=== PATIENT | male | born 1985 | race Caucasian/White ===

== ENCOUNTER 2019-09-02 18:53 | Observation (INO) ==
[2019-09-02 20:16] LABS: Hematocrit (blood only) 49.1 % (42-52); Hemoglobin 18.5 g/dL (14.0-18.0); Mean Corpuscular Hemoglobin 31.5 pg (25-34); Mean Corpuscular Hgb Conc 37.7 g/dL (32-36); Mean Corpuscular Volume 83.6 fL (80-100); Mean Platelet Volume 10.8 fL (7.4-10.4); Platelet Count 270 K/uL (130-400); RDW Coefficient of Variation 12.2 % (11.5-14.5); RDW Standard Deviation 36.8 fL (36.4-46.3); Red Blood Count 5.87 M/uL (4.7-6.1)
[2019-09-02] MEDS ORDERED: SODIUM CHLORIDE 0.9% 1000ML 2,000 ML IV ONE (20:26)
[2019-09-02] MEDS ORDERED: ONDANSETRON INJ 2 MG/ML 2 ML VIAL IV STA (20:26)
--- NOTE | 2019-09-02 20:31 | Emergency Department Note ---
History of Present Illness General Chief complaint: Hyperglycemia Stated complaint: HIGH BLOOD SUGAR History of Present Illness This patient is a 34-year-old male who presents ambulatory to the emergency department for evaluation of vomiting for the last 2 days. He reports not being able to keep anything down. He denies any abdominal pain. No changes in bowel movements. No fever. No recent infectious symptoms such as cough or sinus congestion. The patient has a history of type 1 diabetes. He reports taking a long-acting insulin in addition to a sliding scale. He has been taking his medications as prescribed. Home Medications Home Medications Medication Instructions Recorded Confirmed Type levothyroxine 150 mcg tablet 150 mcg PO DAILY #30 tab 03/11/19 09/02/19 Rx blood sugar diagnostic #10 ea 05/05/19 05/05/19 History insulin syringe-needle U-100 0.5 #10 ea 05/05/19 05/05/19 History mL 31 gauge x 5/16" lancets 33 gauge #100 ea 05/05/19 05/05/19 History Novolin N Flexpen 100 unit/mL (3 120 units SQ DAILY 30 Days #45 ml 06/24/19 09/02/19 Rx mL) subcutaneous insulin pen NS insulin glargine [Lantus U-100 20 unit SUBCUT QAM 09/02/19 09/02/19 History Insulin] insulin glargine [Lantus U-100 24 unit SUBCUT HS 09/02/19 09/02/19 History Insulin] Allergies Allergy/AdvReac Type Severity Reaction Status Date / Time amoxicillin Allergy Intermediate Hives Verified 09/03/19 03:35 Past Med/Surg History Medical History Diabetes type 1, uncontrolled (Chronic) Social History Preferred Language: Georgian Communication Ability: Effective Nutrition Professor Required: No Beliefs That Will Affect Care: None Current Living Situation: Spouse Feels Safe at Home: Yes Smoking Status: Never smoker Hx Alcohol Use: No Hx Substance Use: No Review of Systems A total of 10 systems reviewed and were otherwise negative Physical Exam Vital Signs Vital Signs - 24 hr 09/02/19 19:00 09/02/19 20:00 09/02/19 20:40 Temperature 36.8 C Temperature Source Oral Pulse Rate 120 H Pulse Rate [Left Finger] 91 H 81 Pulse Rhythm Regular Pulse Rhythm [Left Finger] Regular Pulse Strength Normal Pulse Strength [Left Finger] Normal Respiratory Rate 18 21 20 Respiratory Effort / Characteristics Non-Labored Spontaneous Non-Labored Spontaneous Respiratory Depth Normal Normal Respiratory Pattern Regular Regular Blood Pressure 109/77 Blood Pressure [Right Arm] 127/93 144/93 H Blood Pressure Mean 87 Blood Pressure Mean [Right Arm] 104 110 Blood Pressure Position Sitting Blood Pressure Position [Right Arm] Lying Pulse Oximetry 97 92 99 Oxygen Delivery Method Room Air Room Air Sepsis Recent Fever Within 48 Hours No Sepsis New/Unexplained Change in Mental Status No Sepsis Action Taken by Nursing No Action Required 09/02/19 22:00 09/02/19 23:32 09/03/19 00:31 Temperature Temperature Source Pulse Rate Pulse Rate [Left Finger] 91 H 109 H 98 H Pulse Rhythm Pulse Rhythm [Left Finger] Regular Regular Regular Pulse Strength Pulse Strength [Left Finger] Normal Normal Normal Respiratory Rate 20 20 18 Respiratory Effort / Characteristics Non-Labored Spontaneous Non-Labored Spontaneous Non-Labored Spontaneous Respiratory Depth Normal Normal Normal Respiratory Pattern Regular Blood Pressure Blood Pressure [Right Arm] 127/80 142/78 H 128/69 Blood Pressure Mean Blood Pressure Mean [Right Arm] 95 99 88 Blood Pressure Position Blood Pressure Position [Right Arm] Lying Lying Lying Pulse Oximetry 98 96 96 Oxygen Delivery Method Room Air Room Air Room Air Sepsis Recent Fever Within 48 Hours Sepsis New/Unexplained Change in Mental Status Sepsis Action Taken by Nursing Constitutional WD/WN, vitals as above Mildly acutely ill in appearance Eyes EOM intact bilaterally ENMT external ear and nose normal, oropharynx normal Oral mucosa slightly dry Neck trachea midline Respiratory normal respiratory effort, lungs clear to auscultation Cardiovascular RRR, no murmur, no edema Gastrointestinal (Abdomen) normal bowel sounds, soft, nontender, no hepatosplenomegaly Musculoskeletal no cyanosis or clubbing, extremities motor strength 5/5 Skin no rashes, warm and dry Neurologic Alert and oriented x3. No focal motor deficits. Psychiatric Acting appropriately Course Course Patient was seen and examined Vital signs including blood pressure were reviewed medications list was verified with patient Labs were obtained, and a saline lock was established An order was placed for continuous cardiac monitoring. The monitor shows a rate of 101 with sinus tachycardia rhythm. Imaging was performed and reviewed upon reevaluation, the pt was feeling better we discussed his results. He was comfortable with the disposition D/w the hospitliast. They will evaluate the pt for likely inpatient management Consultations Consultation #1: Dr. Thornton Administered Medications Sodium Chloride (Nss 1000ml) 1,000 mls @ 125 mls/hr IV .Q8H JULIÁN Stop: 10/03/19 02:28 Last Admin: 09/03/19 12:50 Dose: 125 mls/hr Documented by: [id number] Infusion: 09/03/19 11:39 Dose: 125 mls/hr Documented by: [id number] Admin: 09/03/19 03:39 Dose: 125 mls/hr Documented by: [id number] Insulin Aspart (Novolog Flexpen) 0 units SC ACHS JULIÁN Stop: 10/03/19 03:14 Last Admin: 09/03/19 13:10 Dose: 6 units Documented by: [id number] Cosigned by: [id number] Admin: 09/03/19 09:02 Dose: 11 units Documented by: [id number] Cosigned by: [id number] Admin: 09/03/19 03:36 Dose: 8 units Documented by: [id number] Cosigned by: [id number] Insulin Glargine (Lantus Solostar Pen) 20 units SC QAM JULIÁN Stop: 10/03/19 08:59 Last Admin: 09/03/19 09:02 Dose: 20 units Documented by: [id number] Cosigned by: [id number] Levothyroxine Sodium (Synthroid) 150 mcg PO DAILYBB [facility]–1983 Stop: 10/03/19 06:29 Last Admin: 09/03/19 06:17 Dose: 150 mcg Documented by: [id number] Ondansetron HCl (Zofran) 4 mg IV Q4H PRN PRN Reason: Nausea Stop: 10/03/19 02:28 Last Admin: 09/03/19 08:59 Dose: 4 mg Documented by: [id number] Discontinued Medications Acetaminophen (Tylenol) 1,000 mg PO NOW STA Stop: 09/02/19 23:06 Last Admin: 09/02/19 23:30 Dose: 1,000 mg Documented by: [id number] Acetaminophen (Tylenol) 1,000 mg PO NOW STA Stop: 09/02/19 23:17 Last Admin: 09/02/19 23:31 Dose: Not Given Documented by: [id number] Sodium Chloride (Nss 1000ml) 2,000 mls @ 999 mls/hr IV .Q2H1M ONE Stop: 09/02/19 22:26 Last Infusion: 09/02/19 22:17 Dose: 0 mls/hr Documented by: [id number] Admin: 09/02/19 20:42 Dose: 999 mls/hr Documented by: [id number] Sodium Chloride (Nss) 500 mls @ 125 mls/hr IV .Q4H ONE Stop: 09/03/19 01:54 Last Infusion: 09/03/19 03:56 Dose: 0 mls/hr Documented by: [id number] Admin: 09/02/19 22:17 Dose: 125 mls/hr Documented by: [id number] Insulin Aspart (Novolog Flexpen) 0 units SC TODAY@1000 JULIÁN Stop: 09/03/19 10:01 Last Admin: 09/03/19 10:15 Dose: 4 units Documented by: [id number] Cosigned by: [id number] Insulin Glargine (Lantus Solostar Pen) 24 units SC NOW STA Stop: 09/03/19 03:02 Last Admin: 09/03/19 03:35 Dose: 24 units Documented by: [id number] Cosigned by: [id number] Ondansetron HCl (Zofran) 4 mg IV NOW STA Stop: 09/02/19 20:27 Last Admin: 09/02/19 20:42 Dose: 4 mg Documented by: [id number] Medical Decision Making Medical Records Attestation: I reviewed the patient's medical records. Home Medications Current Medication List: was personally reviewed by me Laboratory Data Attestation: I reviewed the patient's lab results. Result diagrams: 09/03/19 07:21 09/03/19 07:21 Lab Results 09/02/19 09/02/19 09/02/19 Range/Units 19:02 20:01 20:01 WBC 27.30 H (4.8-10.8) K/uL RBC 5.87 (4.7-6.1) M/uL Hgb 18.5 H (14.0-18.0) g/dL Hct 49.1 (42-52) % MCV 83.6 (80-100) fL MCH 31.5 (25-34) pg MCHC 37.7 H (32-36) g/dL RDW Std Deviation 36.8 (36.4-46.3) fL RDW Coeff of Haily 12.2 (11.5-14.5) % Plt Count 270 (130-400) K/uL MPV 10.8 H (7.4-10.4) fL Immature Gran % (Auto) 0.4 % Neut % (Auto) 88.2 % Lymph % (Auto) 4.3 % [place] % (Auto) 7.0 % Eos % (Auto) 0.1 % Baso % (Auto) 0.0 % Immature Gran # (Auto) 0.12 H (0.00-0.02) K/uL Neut # (Auto) 24.06 H (1.4-6.5) K/uL Lymph # (Auto) 1.17 L (1.2-3.4) K/uL [place] # (Auto) 1.92 H (0.11-0.59) K/uL Eos # (Auto) 0.02 (0-0.5) K/uL Baso # (Auto) 0.01 (0-0.2) K/uL ABG pH (7.35-7.45) ABG pCO2 (35-46) mmHg ABG pO2 (80-95) mmHg ABG HCO3 (19-24) mmol/L ABG O2 Saturation (90-95) % ABG Base Excess (-9-1.8) mEq/L Alberto Test (Pos) Barometric Pressure mm/Hg Oxygen Given Sodium 125 L (136-145) mmol/L Potassium 3.6 (3.5-5.1) mmol/L Chloride 83 L (98-107) mmol/L Carbon Dioxide 32 (21-32) mmol/L Anion Gap 9.0 (3-11) BUN 63 H (7-18) mg/dl Creatinine 2.55 H (0.6-1.4) mg/dl Est Cr Clr Drug Dosing 43.1 ml/min Est GFR ( Amer) 36.3 Est GFR (Non-Af Amer) 31.3 BUN/Creatinine Ratio 24.6 H (10-20) Glucose 239 H (70-99) mg/dl POC Glucose 219 H (70-99) mg/dl Calcium 10.6 H (8.5-10.1) mg/dl Total Bilirubin 0.5 (0.2-1) mg/dl AST 33 (15-37) U/L ALT 42 (12-78) U/L Alkaline Phosphatase 143 H (45-117) U/L Total Protein 8.8 H (6.4-8.2) gm/dl Albumin 4.1 (3.4-5.0) gm/dl Globulin 4.7 H (2.5-4.0) gm/dl Albumin/Globulin Ratio 0.9 (0.9-2) Beta-Hydroxybutyric Acd Cancelled TSH (0.300-4.500) uIu/ml Urine Color Urine Appearance (Clear) Urine pH (4.5-7.5) Ur Specific [place] (1.000-1.030) Urine Protein (Negative) Urine Glucose (UA) (Negative) Urine Ketones (Negative) Urine Blood (Negative) Urine Nitrite (Negative) Urine Bilirubin (Negative) Urine Urobilinogen (Negative) Ur Leukocyte Esterase (Negative) Urine WBC (Auto) (0-5) /hpf Urine RBC (Auto) (0-4) /hpf U Hyaline Cast (Auto) (0-5) /lpf U Epithel Cells (Auto) (0-5) /lpf Urine Bacteria (Auto) (Negative) Ur Renal Epithelial Cell 09/02/19 09/02/19 09/02/19 Range/Units 20:01 21:52 22:05 WBC (4.8-10.8) K/uL RBC (4.7-6.1) M/uL Hgb (14.0-18.0) g/dL Hct (42-52) % MCV (80-100) fL MCH (25-34) pg MCHC (32-36) g/dL RDW Std Deviation (36.4-46.3) fL RDW Coeff of Haily (11.5-14.5) % Plt Count (130-400) K/uL MPV (7.4-10.4) fL Immature Gran % (Auto) % Neut % (Auto) % Lymph % (Auto) % [place] % (Auto) % Eos % (Auto) % Baso % (Auto) % Immature Gran # (Auto) (0.00-0.02) K/uL Neut # (Auto) (1.4-6.5) K/uL Lymph # (Auto) (1.2-3.4) K/uL [place] # (Auto) (0.11-0.59) K/uL Eos # (Auto) (0-0.5) K/uL Baso # (Auto) (0-0.2) K/uL ABG pH 7.49 H (7.35-7.45) ABG pCO2 41 (35-46) mmHg ABG pO2 83 (80-95) mmHg ABG HCO3 30 H (19-24) mmol/L ABG O2 Saturation 96.8 H (90-95) % ABG Base Excess 6.3 H (-9-1.8) mEq/L Alberto Test Pos (Pos) Barometric Pressure 728.9 mm/Hg Oxygen Given ROOM AIR Sodium (136-145) mmol/L Potassium (3.5-5.1) mmol/L Chloride (98-107) mmol/L Carbon Dioxide (21-32) mmol/L Anion Gap (3-11) BUN (7-18) mg/dl Creatinine (0.6-1.4) mg/dl Est Cr Clr Drug Dosing ml/min Est GFR ( Amer) Est GFR (Non-Af Amer) BUN/Creatinine Ratio (10-20) Glucose (70-99) mg/dl POC Glucose 231 H (70-99) mg/dl Calcium (8.5-10.1) mg/dl Total Bilirubin (0.2-1) mg/dl AST (15-37) U/L ALT (12-78) U/L Alkaline Phosphatase (45-117) U/L Total Protein (6.4-8.2) gm/dl Albumin (3.4-5.0) gm/dl Globulin (2.5-4.0) gm/dl Albumin/Globulin Ratio (0.9-2) Beta-Hydroxybutyric Acd 10.36 H TSH 33.100 H (0.300-4.500) uIu/ml Urine Color Urine Appearance (Clear) Urine pH (4.5-7.5) Ur Specific [place] (1.000-1.030) Urine Protein (Negative) Urine Glucose (UA) (Negative) Urine Ketones (Negative) Urine Blood (Negative) Urine Nitrite (Negative) Urine Bilirubin (Negative) Urine Urobilinogen (Negative) Ur Leukocyte Esterase (Negative) Urine WBC (Auto) (0-5) /hpf Urine RBC (Auto) (0-4) /hpf U Hyaline Cast (Auto) (0-5) /lpf U Epithel Cells (Auto) (0-5) /lpf Urine Bacteria (Auto) (Negative) Ur Renal Epithelial Cell 09/02/19 Range/Units 23:20 WBC (4.8-10.8) K/uL RBC (4.7-6.1) M/uL Hgb (14.0-18.0) g/dL Hct (42-52) % MCV (80-100) fL MCH (25-34) pg MCHC (32-36) g/dL RDW Std Deviation (36.4-46.3) fL RDW Coeff of Haily (11.5-14.5) % Plt Count (130-400) K/uL MPV (7.4-10.4) fL Immature Gran % (Auto) % Neut % (Auto) % Lymph % (Auto) % [place] % (Auto) % Eos % (Auto) % Baso % (Auto) % Immature Gran # (Auto) (0.00-0.02) K/uL Neut # (Auto) (1.4-6.5) K/uL Lymph # (Auto) (1.2-3.4) K/uL [place] # (Auto) (0.11-0.59) K/uL Eos # (Auto) (0-0.5) K/uL Baso # (Auto) (0-0.2) K/uL ABG pH (7.35-7.45) ABG pCO2 (35-46) mmHg ABG pO2 (80-95) mmHg ABG HCO3 (19-24) mmol/L ABG O2 Saturation (90-95) % ABG Base Excess (-9-1.8) mEq/L Alberto Test (Pos) Barometric Pressure mm/Hg Oxygen Given Sodium (136-145) mmol/L Potassium (3.5-5.1) mmol/L Chloride (98-107) mmol/L Carbon Dioxide (21-32) mmol/L Anion Gap (3-11) BUN (7-18) mg/dl Creatinine (0.6-1.4) mg/dl Est Cr Clr Drug Dosing ml/min Est GFR ( Amer) Est GFR (Non-Af Amer) BUN/Creatinine Ratio (10-20) Glucose (70-99) mg/dl POC Glucose (70-99) mg/dl Calcium (8.5-10.1) mg/dl Total Bilirubin (0.2-1) mg/dl AST (15-37) U/L ALT (12-78) U/L Alkaline Phosphatase (45-117) U/L Total Protein (6.4-8.2) gm/dl Albumin (3.4-5.0) gm/dl Globulin (2.5-4.0) gm/dl Albumin/Globulin Ratio (0.9-2) Beta-Hydroxybutyric Acd TSH (0.300-4.500) uIu/ml Urine Color Yellow Urine Appearance Cloudy A (Clear) Urine pH 5.5 (4.5-7.5) Ur Specific [place] 1.023 (1.000-1.030) Urine Protein 1+ H (Negative) Urine Glucose (UA) 3+ H (Negative) Urine Ketones 1+ H (Negative) Urine Blood Negative (Negative) Urine Nitrite Negative (Negative) Urine Bilirubin Negative (Negative) Urine Urobilinogen Negative (Negative) Ur Leukocyte Esterase Negative (Negative) Urine WBC (Auto) 5-10 H (0-5) /hpf Urine RBC (Auto) 0-4 (0-4) /hpf U Hyaline Cast (Auto) 0 (0-5) /lpf U Epithel Cells (Auto) >30 H (0-5) /lpf Urine Bacteria (Auto) Negative (Negative) Ur Renal Epithelial Cell Not Reportable Imaging Data Attestation: I personally reviewed and interpreted this imaging study as follows: Radiologist's Impression: KUB Nonobstructive bowel gas pattern 2. Mild fecal retention 3. 1 cm calcification projected over the left L4 transverse process versus overlying enteric contents ACT 112: Negative or not required by law. Electronically signed by: Raphael Fajardo M.D. 09/02/2019 8:42 PM Dictated: 09/02/192039 Transcribed: 09/02/192039 Chest x-ray No active disease in the chest. ACT 112: Negative or not required by law. Electronically signed by: Raphael Fajardo M.D. 09/02/2019 8:40 PM Dictated: 09/02/192039 Transcribed: 09/02/192039 CT abdomen and pelvis without contrast Limited exam due to absence of intra-abdominal fat. 2. No gross abnormalities appreciated. 3. Moderate increase in fecal load within the colon consistent with a component of fecal stasis. ACT 112: Negative or not required by law. The above report was generated using voice recognition software. It may contain grammatical, syntax or spelling errors. Electronically signed by: Elías Garza M.D. 09/03/2019 7:28 AM Dictated: 09/03/19725 Transcribed: 09/03/19725 [facility] Narrative Differential diagnosis: DKA, infectious etiology, bowel obstruction, gallbladder pathology, other electrolyte imbalance, among other This patient is a 34-year-old male who presents to the emergency department with ongoing vomiting for the last several days. He is a type I diabetic. The patient is tachycardic. He is afebrile. Abdomen is benign. Labs reveal significant leukocytosis. Blood sugar is elevated in the 200s. Creatinine is elevated. The patient appears to be dehydrated. The etiology of his symptoms is unclear. It does not appear that the patient is in DKA. ABG shows an elevated pH. This is likely due to vomiting. I did not feel comfortable sendi ng the patient home. He was aggressively hydrated with IV fluids in the emergency department. The hospitalist will evaluate the patient for likely inpatient management. Impression & Plan MATTIE (acute kidney injury) Discharge Plan Visit Data *Final* Discharge Date/Time: 09/03/19 02:14 Chief Complaint: Hyperglycemia Stated Complaint: HIGH BLOOD SUGAR ED Provider: Raúl Pappas ED Midlevel Provider: Chely Asencio Discharge Problem: MATTIE (acute kidney injury) Patient Disposition: Admitted As Inpatient Condition: Fair Discharge Instructions Interventions: ED Discharge Assessment Last Done: 09/03/19 02:14
[2019-09-02 20:34] LABS: Albumin Level 4.1 gm/dl (3.4-5.0); BUN Creatinine Ratio 24.6 (10-20); Calcium 10.6 mg/dl (8.5-10.1); Creatinine Clr Calc Pharmacy 43.1 ml/min; Est GFR (African American) 36.3; Est GFR (Non-African American) 31.3; Potassium 3.6 mmol/L (3.5-5.1)
[2019-09-02 20:37] LABS: Albumin Globulin Ratio 0.9 (0.9-2); Bilirubin,Total 0.5 mg/dl (0.2-1); Globulin 4.7 gm/dl (2.5-4.0); Total Protein 8.8 gm/dl (6.4-8.2)
--- NOTE | 2019-09-02 20:42 | XRay Report ---
XR chest 1V portable CLINICAL HISTORY: vomiting COMPARISON STUDY: No previous studies for comparison. FINDINGS: [ The cardiac and mediastinal contours are normal. There is no evidence of focal pulmonary consolidation. There is no evidence of failure. No pleural effusions are visualized. No free intraper itoneal air is visualized. IMPRESSION: No active disease in the chest. ACT 112: Negative or not required by law. Electronically signed by: Rapheal Fajardo M.D. 09/02/2019 8:40 PM
--- NOTE | 2019-09-02 20:43 | XRay Report ---
XR KUB/Abdomen 1 view CLINICAL HISTORY: vomiting COMPARISON STUDY: No previous studies for comparison. FINDINGS: There are no transition zones indicate bowel obstruction. There is moderate colonic stool. There is a density projected over the left L4 transverse process. It is unclear whether this represen ts a calcification or overlying enteric contents. IMPRESSION: 1. Nonobstructive bowel gas pattern 2. Mild fecal retention 3. 1 cm calcification projected over the left L4 transverse process versus overlying enteric contents ACT 112: Negative or not required by law. Electronically signed by: Raphael Fajardo M.D. 09/02/2019 8:42 PM
[2019-09-02 20:59] LABS: Basophils # (auto) 0.01 K/uL (0-0.2); Eosinophils # (auto) 0.02 K/uL (0-0.5); Eosinophils % (auto) 0.1 %; Immature Granulocytes # (auto) 0.12 K/uL (0.00-0.02); Immature Granulocytes % (auto) 0.4 %; Lymphocytes # (auto) 1.17 K/uL (1.2-3.4); Lymphocytes % (auto) 4.3 %; Monocytes # (auto) 1.92 K/uL (0.11-0.59); Neutrophils # (auto) 24.06 K/uL (1.4-6.5); Neutrophils % (auto) 88.2 %
[2019-09-02] MEDS ORDERED: SODIUM CHLORIDE 0.9% 500 ML IV ONE (21:55)
[2019-09-02 22:11] LABS: Base Excess ABG 6.3 mEq/L (-9-1.8); HCO3 ABG 30 mmol/L (19-24); Oxygen Saturation ABG 96.8 % (90-95); PCO2 ABG 41 mmHg (35-46); PO2 ABG 83 mmHg (80-95); pH ABG 7.49 (7.35-7.45)
[2019-09-02 22:12] LABS: Allen Test Pos (Pos)
[2019-09-02 22:19] LABS: Thyroid Stimulating Hormone 33.1 uIu/ml (0.300-4.500)
[2019-09-02] MEDS ORDERED: ACETAMINOPHEN 500 MG TAB PO STA ×2 (23:05→23:16)
[2019-09-02 23:39] LABS: Beta-Hydroxybutyrate 10.36 mg/dl (0.2-2.81)
[2019-09-02 23:43] LABS: Appearance Urine Cloudy (Clear); Bacteria Urine Automated Negative (Negative); Bilirubin Urine Negative (Negative); Blood Urine Negative (Negative); Color Urine Yellow; Epithelial Cell Urine Auto >30 /lpf (0-5); Glucose Urine UA 3+ (Negative); Ketones Urine 1+ (Negative); Leukocyte Esterase Urine Negative (Negative); Nitrite Urine Negative (Negative); Protein Urine 1+ (Negative); Specific Gravity Urine 1.023 (1.000-1.030); Urobilinogen Urine Negative (Negative); pH Urine 5.5 (4.5-7.5)
--- NOTE | 2019-09-02 23:57 | History & Physical Report ---
Date of Service September 02, 2019 Assessment & Plan (1) MATTIE (acute kidney injury): 34 yo M with PMH T1DM uncontrolled, Hypothyroidism and Kaykay's Thyroiditis presents with concerns of N/V and high home BSG's found to have MATTIE. Uncontrolled T1DM w/ Hyperglycemia -follows with [facility]. Last appt 05/28/19 -BSG 239 on admit. Will give PM dose of Lantus 24units -will check BSG's q4h for now -last A1C 15.06 May 2019. Repeat in AM -Cont home Lantus regimen 20 units AM/24 units PM. Placed on SSI -appreciate glycemic management consult MATTIE -Cr 2.55 on admit -likely 2/2 dehydration from emesis -cont IVF NSS at 125 mls/hr -daily BMP N/V -IV Metoclopramide prn for nausea and IV Zofran prn for refractory nausea ordered Hyponatremia -Na 125 on admission -IVF as above -holding off on additional urine studies at present. Can order if no improvement with fluids Hypothyroidism -TSH 33.1 on admit -Free T4 pending -cont levothyroxine 150 mcg for now, adjust as needed based on T4 FEN/GI: DM1 Diet. NSS at 125 DVT Prophylaxis: Low Risk per Admission Calc. SCD's, Ambulation Full Code Dispo: Med Surg History of Present Illness Chief Complaint: n/v, hyperglycemia Primary Care Provider: NO PCP 34 yo M with PMH T1DM uncontrolled, Hypothyroidism and Kaykay's Thyroiditis presents to [facility] with concerns of N/V and high home BSG's. Onset 2 days ago. No previous such occurrence like this ever before. Notes that anytime he sipped or ingested food he would have emesis. Has not really ingested anything past 2 days. Home BSG's initially >600, then got down to 500s, eventually into 300's over past 2 days. Today, pt states he took 35/30/30 units of lispro today [employer] (times unknown) for his high BSG. Pt normally takes sliding scale, Lantus 20 units qAM, 24 units qPM, carb ratio 1:10. He has been taking his medications as prescribed otherwise. Associated weakness and decreased appetite, but pt otherwise denies any fevers, chills, other infectious sxs, abd pain, sick contacts, or recent travel. Pt with no other acute concerns or complaints. U/A: 3+Glu, 1+ Ketones, 5-10 WBCs CXR: No active disease in the chest. KUB: Nonobstructive bowel gas pattern. Mild fecal retention. 1 cm calcification projected over the left L4 transverse process versus overlying enteric contents CT Abd/Pelvis ([facility]): No clear inflammation about the cecal tip. No GI or urinary tract obstruction. Small sliding type hiatal hernia. Mild urinary bladder wall thickening for the degree of distention. Pertinent Labs: WBC 27.3 w/L shift, Na 125, BUN 63, Cr 2.55, Glu 239, Beta Hydroxybutyric Acid 10.36, TSH 33.1 ER Course: PO Tylenol 2g, IV Zofran, NSS Allergies Allergy/AdvReac Type Severity Reaction Status Date / Time amoxicillin Allergy Intermediate Hives Verified 09/03/19 03:35 Home Medications Home Medications Medication Instructions Recorded Confirmed Type levothyroxine 150 mcg tablet 150 mcg PO DAILY #30 tab 03/11/19 09/02/19 Rx blood sugar diagnostic #10 ea 05/05/19 05/05/19 History insulin syringe-needle U-100 0.5 #10 ea 05/05/19 05/05/19 History mL 31 gauge x 5/16" lancets 33 gauge #100 ea 05/05/19 05/05/19 History Novolin N Flexpen 100 unit/mL (3 120 units SQ DAILY 30 Days #45 ml 06/24/19 09/02/19 Rx mL) subcutaneous insulin pen NS insulin glargine [Lantus U-100 20 unit SUBCUT QAM 09/02/19 09/02/19 History Insulin] insulin glargine [Lantus U-100 24 unit SUBCUT HS 09/02/19 09/02/19 History Insulin] Past Med/Surg History Medical History Diabetes type 1, uncontrolled (Chronic) Social History Preferred Language: Nepalese Communication Ability: Effective Superintendent Storage Area Required: No Beliefs That Will Affect Care: None Current Living Situation: Spouse Feels Safe at Home: Yes Smoking Status: Never smoker Hx Alcohol Use: No Hx Substance Use: No Review of Systems Review of Systems: All systems reviewed & are unremarkable except as noted in HPI & below Physical Exam Constitutional: WD/WN, vitals as above + ill appearing Eyes: PERRL, conjunctivae normal, anicteric sclerae ENMT: Mouth: + oral mucosal abnormality (dry MM) Respiratory: normal respiratory effort, lungs clear to auscultation Cardiovascular: RRR, no murmur, no edema Gastrointestinal (Abdomen): normal bowel sounds, soft, nontender, no hepatosplenomegaly Skin: no rashes, warm and dry Psychiatric: A+Ox3, euthymic affect Results & Data Results & Data ([facility]) Vital Signs (Past 12 Hours) Vital Signs Temp Pulse Pulse Resp BP BP Pulse Ox 09/02/19 23:32 109 H 20 142/78 H 96 09/02/19 22:00 91 H 20 127/80 98 09/02/19 20:40 81 20 144/93 H 99 09/02/19 20:00 91 H 21 127/93 92 09/02/19 19:00 36.8 C 120 H 18 109/77 97 Laboratory Results Laboratory Results - last 24 hr 09/02/19 09/02/19 09/02/19 19:02 20:01 20:01 WBC 27.30 H RBC 5.87 Hgb 18.5 H Hct 49.1 MCV 83.6 MCH 31.5 MCHC 37.7 H RDW Std Deviation 36.8 RDW Coeff of Haily 12.2 Plt Count 270 MPV 10.8 H Immature Gran % (Auto) 0.4 Neut % (Auto) 88.2 Lymph % (Auto) 4.3 [place] % (Auto) 7.0 Eos % (Auto) 0.1 Baso % (Auto) 0.0 Immature Gran # (Auto) 0.12 H Neut # (Auto) 24.06 H Lymph # (Auto) 1.17 L [place] # (Auto) 1.92 H Eos # (Auto) 0.02 Baso # (Auto) 0.01 ABG pH ABG pCO2 ABG pO2 ABG HCO3 ABG O2 Saturation ABG Base Excess Alberto Test Barometric Pressure Oxygen Given Sodium 125 L Potassium 3.6 Chloride 83 L Carbon Dioxide 32 Anion Gap 9.0 BUN 63 H Creatinine 2.55 H Est Cr Clr Drug Dosing 43.1 Est GFR ( Amer) 36.3 Est GFR (Non-Af Amer) 31.3 BUN/Creatinine Ratio 24.6 H Glucose 239 H POC Glucose 219 H Calcium 10.6 H Total Bilirubin 0.5 AST 33 ALT 42 Alkaline Phosphatase 143 H Total Protein 8.8 H Albumin 4.1 Globulin 4.7 H Albumin/Globulin Ratio 0.9 Beta-Hydroxybutyric Acd Cancelled TSH Urine Color Urine Appearance Urine pH Ur Specific [place] Urine Protein Urine Glucose (UA) Urine Ketones Urine Blood Urine Nitrite Urine Bilirubin Urine Urobilinogen Ur Leukocyte Esterase Urine WBC (Auto) Urine RBC (Auto) U Hyaline Cast (Auto) U Epithel Cells (Auto) Urine Bacteria (Auto) Ur Renal Epithelial Cell 09/02/19 09/02/19 09/02/19 20:01 21:52 22:05 WBC RBC Hgb Hct MCV MCH MCHC RDW Std Deviation RDW Coeff of Haily Plt Count MPV Immature Gran % (Auto) Neut % (Auto) Lymph % (Auto) [place] % (Auto) Eos % (Auto) Baso % (Auto) Immature Gran # (Auto) Neut # (Auto) Lymph # (Auto) [place] # (Auto) Eos # (Auto) Baso # (Auto) ABG pH 7.49 H ABG pCO2 41 ABG pO2 83 ABG HCO3 30 H ABG O2 Saturation 96.8 H ABG Base Excess 6.3 H Alberto Test Pos Barometric Pressure 728.9 Oxygen Given ROOM AIR Sodium Potassium Chloride Carbon Dioxide Anion Gap BUN Creatinine Est Cr Clr Drug Dosing Est GFR ( Amer) Est GFR (Non-Af Amer) BUN/Creatinine Ratio Glucose POC Glucose 231 H Calcium Total Bilirubin AST ALT Alkaline Phosphatase Total Protein Albumin Globulin Albumin/Globulin Ratio Beta-Hydroxybutyric Acd 10.36 H TSH 33.100 H Urine Color Urine Appearance Urine pH Ur Specific [place] Urine Protein Urine Glucose (UA) Urine Ketones Urine Blood Urine Nitrite Urine Bilirubin Urine Urobilinogen Ur Leukocyte Esterase Urine WBC (Auto) Urine RBC (Auto) U Hyaline Cast (Auto) U Epithel Cells (Auto) Urine Bacteria (Auto) Ur Renal Epithelial Cell 09/02/19 23:20 WBC RBC Hgb Hct MCV MCH MCHC RDW Std Deviation RDW Coeff of Haily Plt Count MPV Immature Gran % (Auto) Neut % (Auto) Lymph % (Auto) [place] % (Auto) Eos % (Auto) Baso % (Auto) Immature Gran # (Auto) Neut # (Auto) Lymph # (Auto) [place] # (Auto) Eos # (Auto) Baso # (Auto) ABG pH ABG pCO2 ABG pO2 ABG HCO3 ABG O2 Saturation ABG Base Excess Alberto Test Barometric Pressure Oxygen Given Sodium Potassium Chloride Carbon Dioxide Anion Gap BUN Creatinine Est Cr Clr Drug Dosing Est GFR ( Amer) Est GFR (Non-Af Amer) BUN/Creatinine Ratio Glucose POC Glucose Calcium Total Bilirubin AST ALT Alkaline Phosphatase Total Protein Albumin Globulin Albumin/Globulin Ratio Beta-Hydroxybutyric Acd TSH Urine Color Yellow Urine Appearance Cloudy A Urine pH 5.5 Ur Specific [place] 1.023 Urine Protein 1+ H Urine Glucose (UA) 3+ H Urine Ketones 1+ H Urine Blood Negative Urine Nitrite Negative Urine Bilirubin Negative Urine Urobilinogen Negative Ur Leukocyte Esterase Negative Urine WBC (Auto) 5-10 H Urine RBC (Auto) 0-4 U Hyaline Cast (Auto) 0 U Epithel Cells (Auto) >30 H Urine Bacteria (Auto) Negative Ur Renal Epithelial Cell Not Reportable Medications Administered Current Inpatient Medications Sodium Chloride (Nss) 500 mls @ 125 mls/hr IV .Q4H ONE Stop: 09/03/19 01:54 Last Admin: 09/02/19 22:17 Dose: 125 mls/hr Documented by: Code Status & VTE Plan Code Status FULL Supervising Physician Co-Signing Physician Notes Patient seen and examined, chart reviewed, case discussed with Dr. Dawson and I agree with his assessment and plan as documented above. Briefly, patient is a 34yo C male with history of poorly controlled DM-1, last WiuH3U=67.7 in 04/2019, Hypothyroidism presenting with persistent nausea, po intolerance and hyperglycemia. He reports his BS was reading "High" earlier today - suspected to be >600. He administered 35u of Novolog, repeat BSG with in the 300's and he administered 30u of Novolog, repeat BSG was slighly better so he gave himself another 30 units (95u Novolog total). BSG on hysvvhs=157. Still with nausea. Denies fevers/chills/cough/SOB/CP. No additional complaints On exam he appear ill but in NAD Skin - intact, no rash HEENT - NC/AT, PERRL, EOMI, DRY MM, neck supple Heart - +S1/S2, regular, no m/r/g Lungs - CTA Abd - +BS, soft, NT/ND Ext - No edema Neuro - nonfocal Labs and images reviewed - elevated BHB but no anion gap, no acidemia. Xn=[id number], MATTIE with BUN=63 and Cr=2.55, TSH=33 No acute intraabdominal pathology Assessment/Plan - 34yo C male with TypeI DM presenting with hyperglycemia, n/v and MATTIE -Admit to medical floor -Continue IVF resuscitation, patient appears quite dry on physical exam as well as laboratory. Follow BUN/Cr and electrolytes -Resume home Lantus, ISS -Remainder of plan as above Resident Activity Tracking Resident Involvement: Resident Care Provided Care Provided: Adult Hospital Medicine
[2019-09-03 00:04] LABS: Cast Urine Automated 0 /lpf (0-5); RBC Urine Automated 0-4 /hpf (0-4)
--- NOTE | 2019-09-03 02:27 | Billing Data ---
Date of Service September 03, 2019 Coding Level of Care Code 52723 Initial Inpt Care Lvl 2
[2019-09-03] MEDS ORDERED: ALUMINUM/MAGNESIUM SUSP 30 ML UDC PO PRN (02:29)
[2019-09-03] MEDS ORDERED: ACETAMINOPHEN 325 MG TAB PO PRN (02:29)
[2019-09-03] MEDS ORDERED: METOCLOPRAMIDE HCL INJ 5 MG/ML 2 ML VIAL IV PRN (02:29)
[2019-09-03] MEDS ORDERED: DEXTROSE 50% 50 ML SYRINGE IV PRN (02:29)
[2019-09-03] MEDS ORDERED: CARBOHYDRATES FOR HYPOGLYCEMIA PO PRN (02:29)
[2019-09-03] MEDS ORDERED: GLUCOSE 10 TABS/TUBE PO PRN (02:29)
[2019-09-03] MEDS ORDERED: GLUCOSE 40% GEL 15 GM TUBE PO PRN (02:29)
[2019-09-03] MEDS ORDERED: GLUCAGON FOR INJ 1 MG VIAL SQ PRN (02:29)
[2019-09-03] MEDS ORDERED: INSULIN GLARGINE SOLOSTAR 100 UNITS/ML 3 ML PEN SC STA (03:01)
[2019-09-03] MEDS ORDERED: PHARMACY GLYCEMIC MGMT CONSULT PRN (03:06)
[2019-09-03] MEDS: INSULIN ASPART 100 UNITS/ML 3 ML PEN SC SCH ×5 (03:36→20:45)
[2019-09-03] MEDS: SODIUM CHLORIDE 0.9% 1000ML 1,000 ML IV SCH ×3 (03:39→21:29)
[2019-09-03] MEDS: LEVOTHYROXINE SODIUM 150 MCG TABLET PO SCH (06:17)
--- NOTE | 2019-09-03 07:29 | CT Scan Report ---
CT abd pelvis wo con CT DOSE: 295.11 mGy.cm HISTORY: Pain. Nausea. vomiting high WBC TECHNIQUE: Multiaxial CT images of the abdomen and pelvis were performed without contrast. A dose lo wering technique was utilized adhering to the principles of ALARA. COMPARISON STUDY: None. FINDINGS: Compromised exam due to the absence of intra-abdominal fat. Liver spleen and pancreas are g rossly unremarkable. Kidneys are negative for hydronephrosis or nephrocalcinosis. Moderate increase in fecal load throughout the colon. No evidence for a true fecal impaction. Bladder is midline. No free fluid within the abdomen or pelvis. Poor visibility of the appendix although no significant pericecal infiltrative change is present. IMPRESSION: 1. Limited exam due to absence of intra-abdominal fat. 2. No gross abnormalities appreciated. 3. Moderate increase in fecal load within the colon consistent with a component of fecal stasis. ACT 112: Negative or not required by law. The above report was generated using voice recognition software. It may contain grammatical, syntax or spelling errors. Electronically signed by: Elías Garza M.D. 09/03/2019 7:28 AM
[2019-09-03 08:11] LABS: Estimated Average Glucose 372 mg/dl; Hemoglobin A1C 14.6 % (4.5-5.6)
[2019-09-03 08:51] LABS: BUN Creatinine Ratio 27.3 (10-20); Calcium 9.1 mg/dl (8.5-10.1); Creatinine Clr Calc Pharmacy 70.5 ml/min; Est GFR (African American) 68.4; Potassium 4.2 mmol/L (3.5-5.1); T4 Free Thyroxine 0.96 ng/dl (0.8-1.6)
[2019-09-03] MEDS: ONDANSETRON INJ 2 MG/ML 2 ML VIAL IV PRN ×2 (08:59→15:57)
[2019-09-03] MEDS: INSULIN GLARGINE SOLOSTAR 100 UNITS/ML 3 ML PEN SC SCH (09:02)
[2019-09-03 09:24] LABS: Basophils # (auto) 0.01 K/uL (0-0.2); Eosinophils # (auto) 0.02 K/uL (0-0.5); Eosinophils % (auto) 0.1 %; Hematocrit (blood only) 42.8 % (42-52); Hemoglobin 15.6 g/dL (14.0-18.0); Immature Granulocytes # (auto) 0.08 K/uL (0.00-0.02); Immature Granulocytes % (auto) 0.4 %; Lymphocytes % (auto) 5.5 %; Mean Corpuscular Hemoglobin 31.4 pg (25-34); Mean Corpuscular Hgb Conc 36.4 g/dL (32-36); Mean Corpuscular Volume 86.1 fL (80-100); Mean Platelet Volume 11.2 fL (7.4-10.4); Monocytes % (auto) 6.8 %; Neutrophils # (auto) 19.19 K/uL (1.4-6.5); Neutrophils % (auto) 87.2 %; Platelet Count 241 K/uL (130-400); RDW Coefficient of Variation 12.6 % (11.5-14.5); RDW Standard Deviation 39.1 fL (36.4-46.3); Red Blood Count 4.97 M/uL (4.7-6.1)
[2019-09-03] MEDS ORDERED: INSULIN ASPART 100 UNITS/ML 3 ML PEN SC SCH (10:00)
--- NOTE | 2019-09-03 12:49 | Pharmacy Report ---
Glycemic Control Consultation - Date of Service September 03, 2019 - Scope Scope: Glycemic Pharmacist consulted for glycemic control and to write orders per [facility] inpatient glycemic control protocol. - Objective Weight: 73 kg Accuchecks BSG (last 24hrs): 09/02/19 09/02/19 09/02/19 19:02 20:01 22:05 Glucose 239 H POC Glucose 219 H 231 H 09/03/19 09/03/19 09/03/19 03:18 07:21 08:15 Glucose 289 H POC Glucose 374 H* 336 H* 09/03/19 09/03/19 09/03/19 08:15 10:01 11:58 Glucose POC Glucose 331 H* 267 H 143 H Laboratory Data (last 24hrs): 09/02/19 09/02/19 09/03/19 20:01 20:01 07:21 Potassium 3.6 4.2 D Carbon Dioxide 32 29 Anion Gap 9.0 8.0 Creatinine 2.55 H 1.51 H D Est Cr Clr Drug Dosing 43.1 70.5 Beta-Hydroxybutyric Acd Cancelled 10.36 H HbA1c: Hemoglobin A1c 14.6 % (4.5-5.6) H 09/03/19 07:21 - Recent Pertinent Medications Outpatient Anti-diabetic Regimen: * Lantus 20 units SQ AM + Lantus 24 units SQ PM * ?NPH? * Humalog per scale * Follows with [facility] * A1c = 14.6 % 09/03/19 - Assessment & Plan Assessment & Plan: ASSESSMENT: * 34yo T1DM with severe hyperglycemia - no hyperglycemic crisis at this time. Will try to treat with SQ insulin - Q2hrs rapid acting NovoLog until BSG below 250mg/dl then switch back to ACHS. * Pt did not receive his PM dose of Lantus last evening on admission - given at 0300 this AM so that dose was not missed. Unsure of when his last dose of insulin was prior to that. Questionable compliance based on elevated A1c * Likely reported outpatient basal insulin doses are TOTAL daily dose since he does not have any prandial/rapid acting insulin on med rec. Will need to adjust dosing for inpatient use since prandial insulin is ordered per CF/CR. PLAN FOR INPATIENT GLYCEMIC CONTROL: * BSGs coming down nicely with basal on board and Q2hrs NovoLog: BSGs 374 --> 336 --> 267 --> 143 mg/dl Will change back to ACHS * Basal insulin * Pt received outpatient dosing of Lantus 24 units HS (at 0300 on 09/03/19) and 20 units on 09/03/19 @ 0900. Will empirically decrease dosing since this is likely total daily dose and not true basal needs. * for tonight, will dose Lantus based on BSG and then re-eval tomorrow: * BSG below 110 --> 0 units * BSG 110-140 --> 7 units * BSG 141-180 --> 14 units * BSG > 180 --> 18 units * Bolus insulin: per weight based dosing since outpatient scale is unknown. * NovoLog per scale ACHS or Q6hrs while NPO * Goal Range: Low 110 mg/dL - High 140 mg/dL * Correction Factor: 20 mg/dL/unit * Nutritional / Prandial insulin per carb ratio of 1 unit per 7 grams CHO consumed * Please note that the plan above was derived based on current level of insulin resistance and hospital stress. These recommendations are appropriate for inpatient admission only. Plan of care upon discharge will need to be reassessed to avoid potential outpatient hypo/hyperglycemia. Thank you.
--- NOTE | 2019-09-03 14:51 | Hospitalist Progress Note ---
Date of Service September 03, 2019 Assessment & Plan (1) Diabetes type 1, uncontrolled: 34 yo M with PMH T1DM uncontrolled, Hypothyroidism and Kaykay's Thyroiditis; who presented to the hospital with concerns of N/V and high home BSG's found to have MATTIE and elevated glucose levels >300 Uncontrolled T1DM w/ Hyperglycemia with ketosis - likely acidosis. - follows with [facility]. Last appt 05/28/19 - had [address] in April that was set to alert him if he fell outside of goal range 170-220 - pH 7.49 on admission, with presence of ketones, but Bicarb wnl (compensated mixed acid-base disturbance - bicarb likely elevated secondary to vomiting). - continue to check BSG's q4h - last A1C 15.06 May 2019, repeat this admission 14.6 - Cont home Lantus regimen 20 units AM/24 units PM - Glycemic management consult: gave 2Units SQ every 2 hours this AM - will need renewal of Novolog on discharge as with recent use for attempted home control of BSG, patient is almost out - need to continue to control of N/V for maintained normal volume status MATTIE: - Cr 2.55 on admit; improved this AM to 1.51 - likely 2/2 dehydration from emesis - continue IV NSS at 125 mls/hr Nausea/Vomiting: - continue IV Metoclopramide or IV Zofran PRN nausea/vomiting Hyponatremia - Na 125 on admission, hyperglycemia correction to 127 - this AM improved to 131, with correction up to 134 - continue IV fluids Hypothyroidism - TSH 33.1 on admit - cont levothyroxine 150 mcg for now, adjust as needed based on T4 Diet: T1DM, with NSS at 125mL/hr DVT Prophylaxis: SCD's, and encouraged ambulation Code: Full Code (2) MATTIE (acute kidney injury): Admission and Anticipated Discharge Date Admission Date: September 03, 2019 Supervising Physician Co-Signing Physician Notes Resident Physician Supervision Note: I independently interviewed and examined the patient and verified the obrien history and physical, reviewed labs and image studies, discussed the case with the resident Dr. Krishnan and agree with the findings and care plan. Subjective Patient was doing well this morning prior to attempting to eat his breakfast, following having a few bites he re-developed his nausea and vomiting; following receiving another dose of Zofran he had improvement in his symptoms, and subsequently later in the day tolerated small amounts of oral intake without of symptoms. Review of Systems Review of Systems: All systems reviewed & are unremarkable except as noted in Subjective Physical Exam Constitutional: WD/WN, vitals as above Eyes: PERRL, conjunctivae normal, anicteric sclerae ENMT: Nose: + dry nasal mucous membranes Respiratory: normal respiratory effort, lungs clear to auscultation Au scultation: no crackles, no rales and no wheezes Cardiovascular: Rate/Rhythm: regular rate and regular rhythm Heart Sounds: normal S1 and normal S2; no gallop, no murmur and no cardiac rub Gastrointestinal (Abdomen): Inspection/Auscultation: abdomen normal to inspection and normal bowel sounds; abdomen not distended Percussion/Palpation: + abdomen tender and abdomen soft Musculoskeletal: no cyanosis or clubbing, extremities motor strength 5/5 Skin: no rashes, warm and dry Psychiatric: A+Ox3, euthymic affect Lymphatic: no cervical lymphadenopathy Results & Data Results & Data ([facility]) Vital Signs (Past 12 Hours) Vital Signs Temp Pulse Resp BP Pulse Ox 09/03/19 07:37 36.7 C 88 16 128/67 96 09/03/19 04:57 36.9 C 87 16 119/72 95 Laboratory Results 09/03/19 09/03/19 09/03/19 Range/Units 11:58 10:01 08:15 WBC (4.8-10.8) K/uL RBC (4.7-6.1) M/uL Hgb (14.0-18.0) g/dL Hct (42-52) % MCV (80-100) fL MCH (25-34) pg MCHC (32-36) g/dL RDW Std Deviation (36.4-46.3) fL RDW Coeff of Haily (11.5-14.5) % Plt Count (130-400) K/uL MPV (7.4-10.4) fL Immature Gran % (Auto) % Neut % (Auto) % Lymph % (Auto) % [place] % (Auto) % Eos % (Auto) % Baso % (Auto) % Immature Gran # (Auto) (0.00-0.02) K/uL Neut # (Auto) (1.4-6.5) K/uL Lymph # (Auto) (1.2-3.4) K/uL [place] # (Auto) (0.11-0.59) K/uL Eos # (Auto) (0-0.5) K/uL Baso # (Auto) (0-0.2) K/uL ABG pH (7.35-7.45) ABG pCO2 (35-46) mmHg ABG pO2 (80-95) mmHg ABG HCO3 (19-24) mmol/L ABG O2 Saturation (90-95) % ABG Base Excess (-9-1.8) mEq/L Alberto Test (Pos) Barometric Pressure mm/Hg Oxygen Given Sodium (136-145) mmol/L Potassium (3.5-5.1) mmol/L Chloride (98-107) mmol/L Carbon Dioxide (21-32) mmol/L Anion Gap (3-11) BUN (7-18) mg/dl Creatinine (0.6-1.4) mg/dl Est Cr Clr Drug Dosing ml/min Est GFR ( Amer) Est GFR (Non-Af Amer) BUN/Creatinine Ratio (10-20) Glucose (70-99) mg/dl POC Glucose 143 H 267 H 331 H* (70-99) mg/dl Estimat Average Glucose mg/dl Hemoglobin A1c (4.5-5.6) % Calcium (8.5-10.1) mg/dl Total Bilirubin (0.2-1) mg/dl AST (15-37) U/L ALT (12-78) U/L Alkaline Phosphatase (45-117) U/L Total Protein (6.4-8.2) gm/dl Albumin (3.4-5.0) gm/dl Globulin (2.5-4.0) gm/dl Albumin/Globulin Ratio (0.9-2) Beta-Hydroxybutyric Acd TSH (0.300-4.500) uIu/ml Free T4 (0.8-1.6) ng/dl Urine Color Urine Appearance (Clear) Urine pH (4.5-7.5) Ur Specific Browning (1.000-1.030) Urine Protein (Negative) Urine Glucose (UA) (Negative) Urine Ketones (Negative) Urine Blood (Negative) Urine Nitrite (Negative) Urine Bilirubin (Negative) Urine Urobilinogen (Negative) Ur Leukocyte Esterase (Negative) Urine WBC (Auto) (0-5) /hpf Urine RBC (Auto) (0-4) /hpf U Hyaline Cast (Auto) (0-5) /lpf U Epithel Cells (Auto) (0-5) /lpf Urine Bacteria (Auto) (Negative) Ur Renal Epithelial Cell 09/03/19 09/03/19 09/03/19 Range/Units 08:15 07:21 07:21 WBC 22.00 H (4.8-10.8) K/uL RBC 4.97 (4.7-6.1) M/uL Hgb 15.6 (14.0-18.0) g/dL Hct 42.8 (42-52) % MCV 86.1 (80-100) fL MCH 31.4 (25-34) pg MCHC 36.4 H (32-36) g/dL RDW Std Deviation 39.1 (36.4-46.3) fL RDW Coeff of Haily 12.6 (11.5-14.5) % Plt Count 241 (130-400) K/uL MPV 11.2 H (7.4-10.4) fL Immature Gran % (Auto) 0.4 % Neut % (Auto) 87.2 % Lymph % (Auto) 5.5 % Lajas % (Auto) 6.8 % Eos % (Auto) 0.1 % Baso % (Auto) 0.0 % Immature Gran # (Auto) 0.08 H (0.00-0.02) K/uL Neut # (Auto) 19.19 H (1.4-6.5) K/uL Lymph # (Auto) 1.20 (1.2-3.4) K/uL [place] # (Auto) 1.50 H (0.11-0.59) K/uL Eos # (Auto) 0.02 (0-0.5) K/uL Baso # (Auto) 0.01 (0-0.2) K/uL ABG pH (7.35-7.45) ABG pCO2 (35-46) mmHg ABG pO2 (80-95) mmHg ABG HCO3 (19-24) mmol/L ABG O2 Saturation (90-95) % ABG Base Excess (-9-1.8) mEq/L Alberto Test (Pos) Barometric Pressure mm/Hg Oxygen Given Sodium (136-145) mmol/L Potassium (3.5-5.1) mmol/L Chloride (98-107) mmol/L Carbon Dioxide (21-32) mmol/L Anion Gap (3-11) BUN (7-18) mg/dl Creatinine (0.6-1.4) mg/dl Est Cr Clr Drug Dosing ml/min Est GFR ( Amer) Est GFR (Non-Af Amer) BUN/Creatinine Ratio (10-20) Glucose (70-99) mg/dl POC Glucose 336 H* (70-99) mg/dl Estimat Average Glucose 372 mg/dl Hemoglobin A1c 14.6 H (4.5-5.6) % Calcium (8.5-10.1) mg/dl Total Bilirubin (0.2-1) mg/dl AST (15-37) U/L ALT (12-78) U/L Alkaline Phosphatase (45-117) U/L Total Protein (6.4-8.2) gm/dl Albumin (3.4-5.0) gm/dl Globulin (2.5-4.0) gm/dl Albumin/Globulin Ratio (0.9-2) Beta-Hydroxybutyric Acd TSH (0.300-4.500) uIu/ml Free T4 (0.8-1.6) ng/dl Urine Color Urine Appearance (Clear) Urine pH (4.5-7.5) Ur Specific Browning (1.000-1.030) Urine Protein (Negative) Urine Glucose (UA) (Negative) Urine Ketones (Negative) Urine Blood (Negative) Urine Nitrite (Negative) Urine Bilirubin (Negative) Urine Urobilinogen (Negative) Ur Leukocyte Esterase (Negative) Urine WBC (Auto) (0-5) /hpf Urine RBC (Auto) (0-4) /hpf U Hyaline Cast (Auto) (0-5) /lpf U Epithel Cells (Auto) (0-5) /lpf Urine Bacteria (Auto) (Negative) Ur Renal Epithelial Cell 09/03/19 09/03/19 09/02/19 Range/Units 07:21 03:18 23:20 WBC (4.8-10.8) K/uL RBC (4.7-6.1) M/uL Hgb (14.0-18.0) g/dL Hct (42-52) % MCV (80-100) fL MCH (25-34) pg MCHC (32-36) g/dL RDW Std Deviation (36.4-46.3) fL RDW Coeff of Haily (11.5-14.5) % Plt Count (130-400) K/uL MPV (7.4-10.4) fL Immature Gran % (Auto) % Neut % (Auto) % Lymph % (Auto) % [place] % (Auto) % Eos % (Auto) % Baso % (Auto) % Immature Gran # (Auto) (0.00-0.02) K/uL Neut # (Auto) (1.4-6.5) K/uL Lymph # (Auto) (1.2-3.4) K/uL [place] # (Auto) (0.11-0.59) K/uL Eos # (Auto) (0-0.5) K/uL Baso # (Auto) (0-0.2) K/uL ABG pH (7.35-7.45) ABG pCO2 (35-46) mmHg ABG pO2 (80-95) mmHg ABG HCO3 (19-24) mmol/L ABG O2 Saturation (90-95) % ABG Base Excess (-9-1.8) mEq/L Alberto Test (Pos) Barometric Pressure mm/Hg Oxygen Given Sodium 131 L (136-145) mmol/L Potassium 4.2 D (3.5-5.1) mmol/L Chloride 94 L (98-107) mmol/L Carbon Dioxide 29 (21-32) mmol/L Anion Gap 8.0 (3-11) BUN 41 H (7-18) mg/dl Creatinine 1.51 H D (0.6-1.4) mg/dl Est Cr Clr Drug Dosing 70.5 ml/min Est GFR ( Amer) 68.4 Est GFR (Non-Af Amer) 59.0 BUN/Creatinine Ratio 27.3 H (10-20) Glucose 289 H (70-99) mg/dl POC Glucose 374 H* (70-99) mg/dl Estimat Average Glucose mg/dl Hemoglobin A1c (4.5-5.6) % Calcium 9.1 (8.5-10.1) mg/dl Total Bilirubin (0.2-1) mg/dl AST (15-37) U/L ALT (12-78) U/L Alkaline Phosphatase (45-117) U/L Total Protein (6.4-8.2) gm/dl Albumin (3.4-5.0) gm/dl Globulin (2.5-4.0) gm/dl Albumin/Globulin Ratio (0.9-2) Beta-Hydroxybutyric Acd TSH (0.300-4.500) uIu/ml Free T4 0.96 (0.8-1.6) ng/dl Urine Color Yellow Urine Appearance Cloudy A (Clear) Urine pH 5.5 (4.5-7.5) Ur Specific Browning 1.023 (1.000-1.030) Urine Protein 1+ H (Negative) Urine Glucose (UA) 3+ H (Negative) Urine Ketones 1+ H (Negative) Urine Blood Negative (Negative) Urine Nitrite Negative (Negative) Urine Bilirubin Negative (Negative) Urine Urobilinogen Negative (Negative) Ur Leukocyte Esterase Negative (Negative) Urine WBC (Auto) 5-10 H (0-5) /hpf Urine RBC (Auto) 0-4 (0-4) /hpf U Hyaline Cast (Auto) 0 (0-5) /lpf U Epithel Cells (Auto) >30 H (0-5) /lpf Urine Bacteria (Auto) Negative (Negative) Ur Renal Epithelial Cell Not Reportable 09/02/19 09/02/19 09/02/19 Range/Units 22:05 21:52 20:01 WBC (4.8-10.8) K/uL RBC (4.7-6.1) M/uL Hgb (14.0-18.0) g/dL Hct (42-52) % MCV (80-100) fL MCH (25-34) pg MCHC (32-36) g/dL RDW Std Deviation (36.4-46.3) fL RDW Coeff of Haily (11.5-14.5) % Plt Count (130-400) K/uL MPV (7.4-10.4) fL Immature Gran % (Auto) % Neut % (Auto) % Lymph % (Auto) % [place] % (Auto) % Eos % (Auto) % Baso % (Auto) % Immature Gran # (Auto) (0.00-0.02) K/uL Neut # (Auto) (1.4-6.5) K/uL Lymph # (Auto) (1.2-3.4) K/uL [place] # (Auto) (0.11-0.59) K/uL Eos # (Auto) (0-0.5) K/uL Baso # (Auto) (0-0.2) K/uL ABG pH 7.49 H (7.35-7.45) ABG pCO2 41 (35-46) mmHg ABG pO2 83 (80-95) mmHg ABG HCO3 30 H (19-24) mmol/L ABG O2 Saturation 96.8 H (90-95) % ABG Base Excess 6.3 H (-9-1.8) mEq/L Alberto Test Pos (Pos) Barometric Pressure 728.9 mm/Hg Oxygen Given ROOM AIR Sodium (136-145) mmol/L Potassium (3.5-5.1) mmol/L Chloride (98-107) mmol/L Carbon Dioxide (21-32) mmol/L Anion Gap (3-11) BUN (7-18) mg/dl Creatinine (0.6-1.4) mg/dl Est Cr Clr Drug Dosing ml/min Est GFR ( Amer) Est GFR (Non-Af Amer) BUN/Creatinine Ratio (10-20) Glucose (70-99) mg/dl POC Glucose 231 H (70-99) mg/dl Estimat Average Glucose mg/dl Hemoglobin A1c (4.5-5.6) % Calcium (8.5-10.1) mg/dl Total Bilirubin (0.2-1) mg/dl AST (15-37) U/L ALT (12-78) U/L Alkaline Phosphatase (45-117) U/L Total Protein (6.4-8.2) gm/dl Albumin (3.4-5.0) gm/dl Globulin (2.5-4.0) gm/dl Albumin/Globulin Ratio (0.9-2) Beta-Hydroxybutyric Acd 10.36 H TSH 33.100 H (0.300-4.500) uIu/ml Free T4 (0.8-1.6) ng/dl Urine Color Urine Appearance (Clear) Urine pH (4.5-7.5) Ur Specific Browning (1.000-1.030) Urine Protein (Negative) Urine Glucose (UA) (Negative) Urine Ketones (Negative) Urine Blood (Negative) Urine Nitrite (Negative) Urine Bilirubin (Negative) Urine Urobilinogen (Negative) Ur Leukocyte Esterase (Negative) Urine WBC (Auto) (0-5) /hpf Urine RBC (Auto) (0-4) /hpf U Hyaline Cast (Auto) (0-5) /lpf U Epithel Cells (Auto) (0-5) /lpf Urine Bacteria (Auto) (Negative) Ur Renal Epithelial Cell 09/02/19 09/02/19 09/02/19 Range/Units 20:01 20:01 19:02 WBC 27.30 H (4.8-10.8) K/uL RBC 5.87 (4.7-6.1) M/uL Hgb 18.5 H (14.0-18.0) g/dL Hct 49.1 (42-52) % MCV 83.6 (80-100) fL MCH 31.5 (25-34) pg MCHC 37.7 H (32-36) g/dL RDW Std Deviation 36.8 (36.4-46.3) fL RDW Coeff of Haily 12.2 (11.5-14.5) % Plt Count 270 (130-400) K/uL MPV 10.8 H (7.4-10.4) fL Immature Gran % (Auto) 0.4 % Neut % (Auto) 88.2 % Lymph % (Auto) 4.3 % [place]ajas % (Auto) 7.0 % Eos % (Auto) 0.1 % Baso % (Auto) 0.0 % Immature Gran # (Auto) 0.12 H (0.00-0.02) K/uL Neut # (Auto) 24.06 H (1.4-6.5) K/uL Lymph # (Auto) 1.17 L (1.2-3.4) K/uL [place] # (Auto) 1.92 H (0.11-0.59) K/uL Eos # (Auto) 0.02 (0-0.5) K/uL Baso # (Auto) 0.01 (0-0.2) K/uL ABG pH (7.35-7.45) ABG pCO2 (35-46) mmHg ABG pO2 (80-95) mmHg ABG HCO3 (19-24) mmol/L ABG O2 Saturation (90-95) % ABG Base Excess (-9-1.8) mEq/L Alberto Test (Pos) Barometric Pressure mm/Hg Oxygen Given Sodium 125 L (136-145) mmol/L Potassium 3.6 (3.5-5.1) mmol/L Chloride 83 L (98-107) mmol/L Carbon Dioxide 32 (21-32) mmol/L Anion Gap 9.0 (3-11) BUN 63 H (7-18) mg/dl Creatinine 2.55 H (0.6-1.4) mg/dl Est Cr Clr Drug Dosing 43.1 ml/min Est GFR ( Amer) 36.3 Est GFR (Non-Af Amer) 31.3 BUN/Creatinine Ratio 24.6 H (10-20) Glucose 239 H (70-99) mg/dl POC Glucose 219 H (70-99) mg/dl Estimat Average Glucose mg/dl Hemoglobin A1c (4.5-5.6) % Calcium 10.6 H (8.5-10.1) mg/dl Total Bilirubin 0.5 (0.2-1) mg/dl AST 33 (15-37) U/L ALT 42 (12-78) U/L Alkaline Phosphatase 143 H (45-117) U/L Total Protein 8.8 H (6.4-8.2) gm/dl Albumin 4.1 (3.4-5.0) gm/dl Globulin 4.7 H (2.5-4.0) gm/dl Albumin/Globulin Ratio 0.9 (0.9-2) Beta-Hydroxybutyric Acd Cancelled TSH (0.300-4.500) uIu/ml Free T4 (0.8-1.6) ng/dl Urine Color Urine Appearance (Clear) Urine pH (4.5-7.5) Ur Specific Browning (1.000-1.030) Urine Protein (Negative) Urine Glucose (UA) (Negative) Urine Ketones (Negative) Urine Blood (Negative) Urine Nitrite (Negative) Urine Bilirubin (Negative) Urine Urobilinogen (Negative) Ur Leukocyte Esterase (Negative) Urine WBC (Auto) (0-5) /hpf Urine RBC (Auto) (0-4) /hpf U Hyaline Cast (Auto) (0-5) /lpf U Epithel Cells (Auto) (0-5) /lpf Urine Bacteria (Auto) (Negative) Ur Renal Epithelial Cell Medications Administered Current Inpatient Medications Acetaminophen (Tylenol) 650 mg PO Q4H PRN PRN Reason: pain/fever Stop: 10/03/19 02:28 Al Hydrox/Mg Hydrox/Simethicone (Maalox) 30 ml PO Q6H PRN PRN Reason: Dyspepsia Stop: 10/03/19 02:28 Dextrose (Dextrose 50%) 25 - 50 ml IV UD PRN; Protocol PRN Reason: Hypoglycemia Protocol Stop: 10/03/19 02:28 Glucagon (Glucagen) 1 mg SQ UD PRN; Protocol PRN Reason: Hypoglycemia Protocol Stop: 10/03/19 02:28 Glucose (Dex4 Glucose) 4 - 8 tabs PO UD PRN; Protocol PRN Reason: Hypoglycemia Protocol Stop: 10/03/19 02:28 Glucose (Glucose 40%) 15 - 30 gm PO UD PRN; Protocol PRN Reason: Hypoglycemia Protocol Stop: 10/03/19 02:28 Sodium Chloride (Nss 1000ml) 1,000 mls @ 125 mls/hr IV .Q8H JULIÁN Stop: 10/03/19 02:28 Last Admin: 09/03/19 12:50 Dose: 125 mls/hr Documented by: Insulin Aspart (Novolog Flexpen) 0 units SC ACHS [facility] Stop: 10/03/19 03:14 Last Admin: 09/03/19 13:10 Dose: 6 units Documented by: Insulin Glargine (Lantus Solostar Pen) 20 units SC QAM [facility] Stop: 10/03/19 08:59 Last Admin: 09/03/19 09:02 Dose: 20 units Documented by: Insulin Glargine (Lantus Solostar Pen) 0 units SC HS [facility]; Protocol Stop: 10/03/19 20:59 Levothyroxine Sodium (Synthroid) 150 mcg PO DAILYBB [facility] Stop: 10/03/19 06:29 Last Admin: 09/03/19 06:17 Dose: 150 mcg Documented by: Metoclopramide HCl (Reglan) 10 mg IV Q6H PRN PRN Reason: Nausea Stop: 10/03/19 02:28 Miscellaneous (Carbohydrates For Hypoglycemia) 15 - 30 gm PO UD PRN PRN Reason: Hypoglycemia Protocol Stop: 10/03/19 02:28 Miscellaneous Information (Consult Glycemic Management Pharmacy) 1 ea N/A UD PRN; Protocol PRN Reason: Consult Stop: 10/03/19 03:05 Ondansetron HCl (Zofran) 4 mg IV Q4H PRN PRN Reason: Nausea Stop: 10/03/19 02:28 Last Admin: 09/03/19 08:59 Dose: 4 mg Documented by: Resident Activity Tracking Resident Involvement: Resident Care Provided Care Provided: Adult Hospital Medicine
[2019-09-03] MEDS ORDERED: INSULIN GLARGINE SOLOSTAR 100 UNITS/ML 3 ML PEN SC SCH ×2 (21:00)
[2019-09-04] MEDS: SODIUM CHLORIDE 0.9% 1000ML 1,000 ML IV SCH (05:11)
[2019-09-04] MEDS: LEVOTHYROXINE SODIUM 150 MCG TABLET PO SCH (05:12)
[2019-09-04 06:24] LABS: Basophils # (auto) 0.01 K/uL (0-0.2); Basophils % (auto) 0.1 %; Eosinophils # (auto) 0.05 K/uL (0-0.5); Eosinophils % (auto) 0.4 %; Hematocrit (blood only) 42.7 % (42-52); Immature Granulocytes # (auto) 0.04 K/uL (0.00-0.02); Immature Granulocytes % (auto) 0.3 %; Lymphocytes # (auto) 1.47 K/uL (1.2-3.4); Lymphocytes % (auto) 11.1 %; Mean Corpuscular Hemoglobin 31.6 pg (25-34); Mean Corpuscular Hgb Conc 35.1 g/dL (32-36); Mean Corpuscular Volume 89.9 fL (80-100); Mean Platelet Volume 10.7 fL (7.4-10.4); Monocytes # (auto) 1.11 K/uL (0.11-0.59); Monocytes % (auto) 8.4 %; Neutrophils # (auto) 10.52 K/uL (1.4-6.5); Neutrophils % (auto) 79.7 %; Platelet Count 202 K/uL (130-400); RDW Coefficient of Variation 12.9 % (11.5-14.5); RDW Standard Deviation 42.1 fL (36.4-46.3); Red Blood Count 4.75 M/uL (4.7-6.1)
[2019-09-04 07:10] LABS: BUN Creatinine Ratio 16.8 (10-20); Calcium 8.3 mg/dl (8.5-10.1); Creatinine Clr Calc Pharmacy 103.4 ml/min; Est GFR (African American) 108.6; Est GFR (Non-African American) 93.7; Potassium 3.8 mmol/L (3.5-5.1)
[2019-09-04] MEDS: INSULIN GLARGINE SOLOSTAR 100 UNITS/ML 3 ML PEN SC SCH (08:56)
[2019-09-04] MEDS: INSULIN ASPART 100 UNITS/ML 3 ML PEN SC SCH ×2 (08:58→13:37)
[2019-09-04] MEDS ORDERED: INSULIN GLARGINE SOLOSTAR 100 UNITS/ML 3 ML PEN SC ONE (09:15)
--- NOTE | 2019-09-04 09:26 | Pharmacy Report ---
Pharmacy Glycemic Short Note 2 - Date of Service September 04, 2019 - Glycemic Short BSG Results (Last 24 hours): 09/03/19 09/03/19 09/03/19 10:01 11:58 17:03 Glucose POC Glucose 267 H 143 H 118 H 09/03/19 09/04/19 09/04/19 20:36 06:02 08:06 Glucose 128 H POC Glucose 156 H 170 H OUTPATIENT ANTIDIABETIC REGIMEN: * Lantus 20 units SQ AM + Lantus 24 units SQ PM * ?NPH? * Humalog per scale - needs med refill, has been using a lot over the last month * [place] [facility] [place] * A1c = 14.6 % 09/03/19 ASSESSMENT: * 34yo T1DM admitted with severe hyperglycemia - no hyperglycemic crisis. Treated with Q2hr NovoLog and resuming outpatient basal insulin dosing. Switched back to ACHS BSGs/coverage when BSG < 250 * BSGs acceptable over the past 18 hrs. * Pt has received 100 unit of insulin over the past 24hrs. This is significantly more than predicted normal TDD d/t severe hyperglycemia. * 68 units basal {Lantus 24 units @ 0300 + 20 units @ 0900 + 14 units @ 2100} (PM outpatient dose of Lantus empirically reduced since previous two Lantus doses were given close together) * 32 nits bolus {NovoLog} * BSGs [phone] {transitioned back to ACHS from Q2hrs w this BSG} -118-136 * Questionable compliance based on elevated A1c * D/W hospitalist and patient. He is willing to trial once daily Lantus + Humalog per previous outpatient scale. Hopefully decreasing the number of injections will increase adherence. Regimen can be fine tuned by outpatient provider. PLAN FOR INPATIENT GLYCEMIC CONTROL: * Basal insulin: transition to once daily dosing. Pt received 14 units of Lantus last evening, therefore, will give reduced dose this AM {Lantus already on board} * Lantus 30 units SQ x 1 dose this AM then Lantus 35 units SQ daily in AM starting 09/05/19 * Bolus insulin, continue with weight based scale outpatient scale unknown. * NovoLog per scale ACHS or Q6hrs while NPO * Goal Range: Low 100 mg/dL - High 140 mg/dL * Correction Factor: 20 mg/dL/unit * Nutritional / Prandial insulin per carb ratio of 1 unit per 7 grams CHO consumed PLAN FOR DISCHARGE: * A1c = 14.6% on 09/03/19 * Pt will need close followup with outpatient endo - he has an appt 10/04/19 but we will see if we can get that moved sooner. * Transition to once daily Lantus dosing to decrease number of injections - recommend Lantus 35 units SQ daily then dosing to be titrated further by [facility] endo. Will provide long acting basal insulin dose titration to get patient through until he sees Endo * Recommend Humalog with ALL meals/snacks - current scale of CF = 20/CR=7 has been working well. But if patient does not want to carb count then recommend Humalog 5-8 units with meals (5 units with small meal and 8 units with large/high CHO meal). * Patient will need Rx for Lantus * He just received Rx for Humalog, pen needles, and strips at the beginning of the year (May 2019). Long acting basal insulin dose titration education provided to patient: Dusty Saul 1985 How to Increase LONG-ACTING Insulin Multiple long-acting or basal insulins are available some are Lantus, Basaglar, Levemir, Tresiba, Toujeo. Your long-acting insulin is called Lantus (insulin glargine) The dose needs to be adjusted for each person, using the Fasting or Pre-meal blood sugar as a guide. This can be done using the following guidelines. 1. Your long-acting insulin should be taken near the same time every day, usually at bedtime; for you this should be near 9am in the morning. 2. Start by taking 35 units SQ daily in the morning. 3. Test your blood sugar at least 4 times a day. Test before eating anything in the morning. Then test before lunch, before supper and at bedtime. 4. Record your blood sugars in your log-book to refer to later. 5. Your blood sugar target range is 100-140 mg/dl If your blood sugars at all times of day are mostly higher than your target range, then increase your long- acting insulin dose by 3 units every 3 days. 6. Long-acting insulin works all day and night. It will affect blood sugars at all times. Once blood sugars at any time of day often fall into your target range, do not increase the insulin dose further. 7. Once this happens call us at [phone] so we can help with next steps. 8. Also call us if you have any questions or problems with blood sugars that are too low.
--- NOTE | 2019-09-04 13:55 | Discharge Summary ---
Date of Service September 04, 2019 Admission HPI Per Admitting Provider 34 yo M with PMH T1DM uncontrolled, Hypothyroidism and Kaykay's Thyroiditis presents to [facility] with concerns of N/V and high home BSG's. Onset 2 days ago. No previous such occurrence like this ever before. Notes that anytime he sipped or ingested food he would have emesis. Has not really ingested anything past 2 days. Home BSG's initially >600, then got down to 500s, eventually into 300's over past 2 days. Today, pt states he took 35/30/30 units of lispro today HOME CARE CONSULTANT (times unknown) for his high BSG. Pt normally takes sliding scale, Lantus 20 units qAM, 24 units qPM, carb ratio 1:10. He has been taking his medications as prescribed otherwise. Associated weakness and decreased appetite, but pt otherwise denies any fevers, chills, other infectious sxs, abd pain, sick contacts, or recent travel. Pt with no other acute concerns or complaints. U/A: 3+Glu, 1+ Ketones, 5-10 WBCs CXR: No active disease in the chest. KUB: Nonobstructive bowel gas pattern. Mild fecal retention. 1 cm calcification projected over the left L4 transverse process versus overlying enteric contents CT Abd/Pelvis ([facility]): No clear inflammation about the cecal tip. No GI or urinary tract obstruction. Small sliding type hiatal hernia. Mild urinary bladder wall thickening for the degree of distention. Pertinent Labs: WBC 27.3 w/L shift, Na 125, BUN 63, Cr 2.55, Glu 239, Beta Hydroxybutyric Acid 10.36, TSH 33.1 ER Course: PO Tylenol 2g, IV Zofran, NSS Principal Diagnosis Uncontrolled T1DM with ketosis Discharge Exam Constitutional WD/WN, vitals as above Eyes PERRL, conjunctivae normal, anicteric sclerae ENMT Nose: + dry nasal mucous membranes Respiratory normal respiratory effort, lungs clear to auscultation Auscultation: no crackles, no rales and no wheezes Cardiovascular Rate/Rhythm: regular rate and regular rhythm Heart Sounds: normal S1 and normal S2; no gallop, no murmur and no cardiac rub Gastrointestinal (Abdomen) Inspection/Auscultation: abdomen normal to inspection and normal bowel sounds; abdomen not distended Percussion/Palpation: + abdomen tender and abdomen soft Musculoskeletal no cyanosis or clubbing, extremities motor strength 5/5 Skin no rashes, warm and dry Psychiatric A+Ox3, euthymic affect Lymphatic no cervical lymphadenopathy Discharge Data Allergies Allergy/AdvReac Type Severity Reaction Status Date / Time amoxicillin Allergy Intermediate Hives Verified 09/03/19 03:35 Consultations 09/02/19 23:05 ED Decision to Admit Stat Ordered Studies 09/02/19 21:54 CT abd pelvis wo con Urgent Hospital Course (1) Diabetes type 1, uncontrolled: 34 yo M with PMH T1DM uncontrolled, Hypothyroidism and Kaykay's Thyroiditis; who presented to the hospital with concerns of N/V and high home BSG's found to have MATTIE and elevated glucose levels >300 Uncontrolled T1DM w/ Hyperglycemia with ketosis and compensated ?acidosis. - follows with Shira Riceor Endocrinology. Last appt 05/28/19 - had [address] in April that was set to alert him if he fell outside of goal range 170-220 - pH 7.49 on admission, with presence of ketones, but Bicarb wnl (compensated mixed acid-base disturbance - bicarb likely elevated secondary to vomiting). - continue to check BSG's q4h - last A1C 15.06 May 2019, repeat this admission 14.6 - started new Lantus regimen 35Units once daily - continue sliding scale bolus Humalog with all meals and snacks - to have follow-up with Dixie Marmolejo ([employer]) in the 7 days, and with Shira Francy in the next 14 days for examination of new regimen. Nausea/vomiting - likely gastroenteritis. - resolved. MATTIE: (resolved) - Cr 2.55 on admit; improved this AM to 1.03 - likely 2/2 dehydration from emesis Total Time Total Time Spent Total Time Spent (In Minutes): 30 Discharge Plan Discharge Items Patient Disposition: Home - Self-Care Reason For Visit: MATTIE, HYPERGLYCEMIA Discharge Diagnosis: uncontrolled T1DM Condition on Discharge: Fair Activity: Per Instructions section Non-emergency contact: Primary Care Provider and Specialist Call non-emergency contact if: you have any medication questions and your symptoms worsen Follow-up/Referrals: PCP,NO [Primary Care Provider] - Diet: Carb Count or DM1 Addtl Attending Provider Instructions: You were seen and evaluated following continued un-relenting nausea and vomiting in the setting of continued high glucose levels. During this admission, we noted that despite your blood sugar being high that you were not in a Diabetic Ketoacidotic (DKA) episode, and with continued hydration and control of your blood sugars we were able to decrease the amount of nausea and vomiting you were having. Now that we have limited your symptoms and you have been able to tolerate eating without having return of your symptoms you are being discharged. In order to better control the spiking of your blood sugars and potentially limit the number of times you have to inject yourself daily we are changing your Lantus regimen to 35Units once a day, and renewing your Humalog. In the next two weeks you should have follow-up with Dixie Marmolejo (the [employer] jorge a thrasher in the [facility] [place]), followed by an genevieve Riceor ([facility]) for examination of your insulin regimen and control. Long acting basal insulin dose titration education provided to patient: Dusty Saul 1985 How to Increase LONG-ACTING Insulin Multiple long-acting or basal insulins are available some are Lantus, Basaglar, Levemir, Tresiba, Toujeo. Your long-acting insulin is called Lantus (insulin glargine) The dose needs to be adjusted for each person, using the Fasting or Pre-meal blood sugar as a guide. This can be done using the following guidelines. 1. Your long-acting insulin should be taken near the same time every day, usually at bedtime; for you this should be near 9am in the morning. 2. Start by taking 35 units SQ daily in the morning. 3. Test your blood sugar at least 4 times a day. Test before eating anything in the morning. Then test before lunch, before supper and at bedtime. 4. Record your blood sugars in your log-book to refer to later. 5. Your blood sugar target range is 100-140 mg/dl If your blood sugars at all times of day are mostly higher than your target range, then increase your long- acting insulin dose by 3 units every 3 days. 6. Long-acting insulin works all day and night. It will affect blood sugars at all times. Once blood sugars at any time of day often fall into your target range, do not increase the insulin dose further. 7. Once this happens call us at [phone] so we can help with next steps. 8. Also call us if you have any questions or problems with blood sugars that are too low. Pending Studies at Discharge: No Stand-Alone Forms: My [facility] [employer], Smoking Cessation Medications and DC Order Prescriptions: New Lantus U-100 Insulin 100 unit/mL solution 35 units SQ DAILY Qty: 10 RF: 0 Continued levothyroxine 150 mcg tablet 150 mcg PO DAILY Qty: 30 RF: 2 Novolin N Flexpen 100 unit/mL (3 mL) insulin pen 120 units SQ DAILY 30 Days Qty: 45 RF: 5 Discontinued Lantus U-100 Insulin 100 unit/mL Solution 24 unit SUBCUT HS RF: 0 Lantus U-100 Insulin 100 unit/mL Solution 20 unit SUBCUT QAM RF: 0 No Action (DME) OneTouch Verio test strips Strip See Rx Instructions .ROUTE .MEDSUPPLY Qty: 10 RF: 0 (DME) lancets [OneTouch Delica Lancets] 33 gauge misc See Rx Instructions .ROUTE .MEDSUPPLY Qty: 100 RF: 0 (DME) insulin syringe-needle U-100 [BD Insulin Syringe Ultra-Fine] 0.5 mL 31 gauge x 5/16" syringe See Rx Instructions .ROUTE .MEDSUPPLY Qty: 10 RF: 0 Discharge Orders: Discharge Order (Routine); Ordered 09/04/19 Ordered By: Elmo Mueller/Other Patient Handouts: Diabetes Healthy Meals, Diabetes Manage A1C Test, Diabetes Meal Planning, Diabetes Carbs Fats Protein, Getting Support When You Have Diabetes, Diabetes My Exam and Test Results, A1C Admission Data Admit Date/Time: 09/03/19 00:55 Attending Provider: Nicole Tellez Admit Provider: Victor Manuel Dawson Primary Care Provider: PCP,NO Other Providers: Yuko Thornton Other Interventions: Discharge Summary Assessment (RN) Last Done: 09/04/19 11:08 Supervising Physician Co-Signing Physician Notes Resident Physician Supervision Note: I independently interviewed and examined the patient and verified the obrien history and physical, reviewed labs and image studies, discussed the case with the resident Dr. Krishnan and agree with the findings and care plan. Resident Activity Tracking Resident Involvement: Resident Care Provided Care Provided: Adult Hospital Medicine
[2019-09-05] MEDS ORDERED: INSULIN GLARGINE SOLOSTAR 100 UNITS/ML 3 ML PEN SC SCH (09:00)
== END 2019-09-04 15:52 | disposition home or self-care (01) ==
LOC: ED 18:53 → INTOOBSV 09-03 00:55 → SUATTDRO 09-03 00:55 → 3N 09-03 00:55

== ENCOUNTER 2021-09-10 13:47 | Inpatient (IN) ==
[2021-09-10] MEDS ORDERED: SODIUM CHLORIDE 0.9% 1000ML 1,000 ML IV ONE (13:53)
[2021-09-10] MEDS ORDERED: NORMOSOL-R 2,000 ML IV ONE (14:06)
[2021-09-10 14:24] LABS: Basophils # (auto) 0.01 K/uL (0-0.2); Basophils % (auto) 0.1 %; Eosinophils # (auto) 0.07 K/uL (0-0.5); Eosinophils % (auto) 0.4 %; Hematocrit (blood only) 49.2 % (42-52); Hemoglobin 18.2 g/dL (14.0-18.0); Immature Granulocytes # (auto) 0.05 K/uL (0.00-0.02); Immature Granulocytes % (auto) 0.3 %; Lymphocytes # (auto) 1.21 K/uL (1.2-3.4); Lymphocytes % (auto) 7.3 %; Mean Corpuscular Hemoglobin 32.7 pg (25-34); Mean Corpuscular Volume 88.5 fL (80-100); Mean Platelet Volume 11.4 fL (7.4-10.4); Monocytes # (auto) 0.61 K/uL (0.11-0.59); Monocytes % (auto) 3.7 %; Neutrophils % (auto) 88.2 %; Platelet Count 292 K/uL (130-400); RDW Coefficient of Variation 12.1 % (11.5-14.5); RDW Standard Deviation 38.7 fL (36.4-46.3); Red Blood Count 5.56 M/uL (4.7-6.1); White Blood Count 16.65 K/uL (4.8-10.8)
[2021-09-10] MEDS ORDERED: CARBOHYDRATES FOR HYPOGLYCEMIA PO PRN (14:35)
[2021-09-10] MEDS ORDERED: STAT INSULIN DRIP STA (14:35)
[2021-09-10] MEDS ORDERED: DEXTROSE 50% 50 ML SYRINGE IV PRN (14:35)
[2021-09-10] MEDS ORDERED: GLUCOSE 40% GEL 15 GM TUBE PO PRN (14:35)
[2021-09-10] MEDS ORDERED: GLUCOSE 10 TABS/TUBE PO PRN (14:35)
[2021-09-10] MEDS ORDERED: GLUCAGON FOR INJ 1 MG VIAL SQ PRN (14:35)
[2021-09-10] MEDS ORDERED: DKA GOAL RANGE 150-250 mg/dl ONE (14:35)
[2021-09-10 14:41] LABS: iSTAT Creatinine 1.1 mg/dl (0.6-1.3); iSTAT Hemoglobin 18.4 g/dl (14.0-18.0); iSTAT Ionized Calcium 1.02 mmol/l (1.12-1.32); iSTAT Potassium 6.1 mmol/L (3.3-5.0)
[2021-09-10] MEDS ORDERED: NovoLIN-R BOLUS FROM BAG IV ONE (14:45)
[2021-09-10] MEDS ORDERED: INSULIN REGULAR 250 UNITS in SODIUM CHLORIDE 0.9% 247.5 ML IV SCH (14:45)
[2021-09-10 14:49] LABS: Alanine Aminotransferase 25 U/L (7-52); Albumin Globulin Ratio 1.1 (0.9-2); Albumin Level 4.4 gm/dl (3.4-5.0); Alkaline Phosphatase 116 U/L (34-104); Anion Gap 22 (3-11); BUN Creatinine Ratio 19.7 (10-20); Bilirubin,Total 0.9 mg/dl (0.2-1.0); Blood Urea Nitrogen 29 mg/dl (6-23); Calcium 9.6 mg/dl (8.5-10.1); Carbon Dioxide 18 mmol/L (21-32); Chloride 82 mmol/L (98-107); Creatinine Clr Calc Pharmacy 66.7 ml/min; Est GFR (African American) 69.6 ml/min; Est GFR (Non-African American) 60.1 ml/min; Globulin 3.9 gm/dl (2.5-4.0); Glucose 613 mg/dl (70-99(Fasting)); Lipase 10 U/L (11-82); Sodium 122 mmol/L (136-145); Total Protein 8.3 gm/dl (6.0-8.3)
[2021-09-10 14:53] LABS: Base Excess VBG -6.9 mEq/L; Oxygen Saturation VBG 71.6 %; pH VBG 7.31 (7.36-7.41)
[2021-09-10 15:02] LABS: Appearance Urine Clear (Clear); Bilirubin Urine Negative (Negative); Blood Urine Negative (Negative); Color Urine Yellow; Glucose Urine UA 3+ (Negative); Ketones Urine 3+ (Negative); Leukocyte Esterase Urine Negative (Negative); Nitrite Urine Negative (Negative); Protein Urine Negative (Negative); Specific Gravity Urine 1.032 (1.000-1.030); Urobilinogen Urine Negative (Negative)
--- NOTE | 2021-09-10 15:27 | Emergency Department Note ---
Impression & Plan DKA, type 1, Acute hyperglycemia, Acute hyponatremia, Acute hyperkalemia ED Provider Note NAME: GARRET WILLETT AGE: 36 SEX: M : 1985 ARRIVES VIA: Walk-In INFORMANT: Patient ED PROVIDER(S): Jeremy Guillermo DO CHIEF COMPLAINT: vomiting HPI: Patient is a 36-year-old male with past medical history of diabetes, MATTIE, hypothyroidism who presents the ER for nausea and vomiting. He found out within the past 2 days that his is him. He is not monitoring his sugars. He has been giving himself intermittent insulin. He admits to feeling sick to his stomach as well as nausea vomiting. Denies any headache or change in vision. No chest pain or shortness of breath. No dysuria urgency or frequency. No other exacerbating or remitting factors. ROS: See above HPI for pertinent positives & negatives. A total of 10 systems reviewed and were otherwise negative. PAST MEDICAL HISTORY:See Below PAST SURGICAL HISTORY:See Below FAMILY HISTORY:See Below SOCIAL HISTORY:See Below HOME MEDICATIONS:See Below ALLERGIES:See Below VITALS:See Below PHYSICAL EXAMINATION: GENERAL: Sitting up in bed, alert, slightly ill-appearing, disheveled EYE EXAM: normal conjunctiva. OROPHARYNX: mucous membranes are dry NECK: supple, no nuchal rigidity, no adenopathy, non-tender LUNGS: Clear to auscultation. Normal chest wall mechanics HEART: no murmurs, S1 normal and S2 normal ABDOMEN: abdomen soft, non-tender, normo-active bowel sounds, no masses, no rebound or guarding. UPPER EXTREMITIES: upper extremities are grossly normal. LOWER EXTREMITIES: No pitting edema. NEURO EXAM: Normal sensorium, cranial nerves II-XII grossly intact, normal speech, no gross weakness of arms, no gross weakness of legs. MEDICAL DECISION MAKING: Patient is a 36-year-old male who presents ER for nausea vomiting and elevated blood sugars. IV was established blood work was obtained. Labs show leukocytosis of 16,000. Hemoglobin was 18 likely secondary to dehydration. BMP with hyponatremia which is pseudo had 122 likely secondary to the hyperglycemia. Potassium elevated 6.1. CO2 was low at 18. VBG with a pH of 7.3. Anion gap present. Creatinine slightly up at 1.4. Glucose at 600s. Lipase was normal. UA with ketones. Patient was given initially 1 L of IV fluids in triage. I ordered him 2 L of Normosol. He was given a insulin drip and a bolus. ST will trend down with the insulin as well as the fluids. He was monitored closely. [facility] and [facility]. Triage Nursing notes reviewed. Limited review of prior medical records performed Vital Signs: reviewed and remarkable for tachycardia Differential diagnosis: Differential diagnoses includes but is not limited to gastritis, peptic ulcer disease, GERD, gallbladder disease, pancreatitis, small bowel obstruction, acute coronary syndrome, pericarditis, ischemic bowel, irritable bowel disease, irritable bowel syndrome, appendicitis, diverticulitis, malignancy, hernia, urinary tract infection, torsion, 32, perforation, trauma, infectious. ER treatment provided: See below Diagnostics interpreted by me: ECG: none Cardiac Monitoring: An order was placed for continuous cardiac monitoring. The monitor shows a rate of 101 with sinus rhythm. Laboratory studies: As stated above and show below. Imaging studies: cxr pending Consultation(s): This with need for further evaluation Procedures: none Critical Care: I have personally spent 32 minutes of critical care time in the direct management of this patient. This includes bedside care, interpretation of diagnostic studies, and testing, discussion with consultants, patient, and family members, and other required patient management activities. This 32 shira raphael is in excess of all separately billable procedures. Past Med/Surg History Medical History (Updated 09/10/21 @ 15:27 by Jeremy Guillermo DO) Acute kidney failure Hospitalization 04/29/21- Creat 4.9 Depression Diabetes type 1, uncontrolled DKA, type 1 Hospitalization 04/29/21 Dyslipidemia Kaykay's thyroiditis Hypothyroidism Tobacco abuse Uncontrolled type 1 diabetes mellitus, with long-term current use of insulin Vitamin D deficiency Surgical History No pertinent past surgical history Family History Denies family history of Ovarian cancer Prostate cancer Myocardial infarction Breast cancer Colorectal cancer Cancer Social History Smoking Status: Current every day smoker Tobacco Type: Cigarettes Cigarettes Per Day: 1 pack per week; Hx Alcohol Use: No Hx Substance Use: No Preferred Language: Wolof Communication Ability: Effective Pattern Wheel Maker Required: No Beliefs That Will Affect Care: None marital status: Current Living Situation: Spouse current occupational status: employed 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 Feels Safe at Home: Yes Dental Care, Regularly: No Physical Activity Frequency: Daily Seatbelt Use: always Sunscreen Use: No Assistive Devices: Glasses Allergies Allergies Allergy/AdvReac Type Severity Reaction Status Date / Time amoxicillin Allergy Intermediate Hives Verified 07/01/21 08:54 Home Meds Home Medications Medication Instructions Recorded Confirmed insulin syringe-needle U-100 0.5 #10 ea 12/07/19 07/01/21 mL 31 gauge x 5/16" (BD Insulin Syringe Ultra-Fine) blood sugar diagnostic (Embrace 01/16/21 07/01/21 PRO test strips) cholecalciferol (vitamin D3) 50 200 mcg PO DAILY cap 02/01/21 04/30/21 mcg (2,000 unit) capsule Previous Rx's Medication Instructions Recorded hydroxyzine HCl 10 mg tablet 10 mg PO TID PRN #30 tab 02/06/21 cholecalciferol (vitamin D3) 1,250 50,000 unit PO Q7D #12 cap 02/07/21 mcg (50,000 unit) capsule insulin aspart U-100 100 unit/mL 50 unit SUBCUT TID #1 box 03/11/21 (3 mL) subcutaneous pen (Novolog Flexpen U-100 Insulin aspart) citalopram 20 mg tablet 20 mg PO DAILY #30 tab 05/31/21 levothyroxine 150 mcg tablet 150 mcg PO DAILY #30 tab 07/02/21 insulin glargine 100 unit/mL 25 unit SQ DAILY #20 ml 07/06/21 subcutaneous solution (Lantus U-100 Insulin) Results & Data (ED) Vital Signs Vital Signs - 24 hr 09/10/21 13:49 Temperature 36.8 C Temperature Source Temporal Artery Scan Pulse Rate 108 H Pulse Rhythm Regular Respiratory Rate 17 Respiratory Effort / Characteristics Non-Labored Spontaneous Respiratory Depth Normal Respiratory Pattern Regular Blood Pressure 120/86 Blood Pressure Mean 97 Blood Pressure Position Sitting Pulse Oximetry 97 Oxygen Delivery Method Room Air Sepsis Recent Fever Within 48 Hours No Sepsis New/Unexplained Change in Mental Status No Sepsis Action Taken by Nursing No Action Required Laboratory Data Result diagrams: 09/10/21 14:07 09/10/21 14:07 Lab Results 09/10/21 09/10/21 09/10/21 Range/Units 13:52 14:07 14:07 WBC 16.65 H (4.8-10.8) K/uL RBC 5.56 (4.7-6.1) M/uL Hgb 18.2 H (14.0-18.0) g/dL POC Hgb (14.0-18.0) g/dl Hct 49.2 (42-52) % POC Hct (42-52) % MCV 88.5 (80-100) fL MCH 32.7 (25-34) pg MCHC 37.0 H (32-36) g/dL RDW Std Deviation 38.7 (36.4-46.3) fL RDW Coeff of Haily 12.1 (11.5-14.5) % Plt Count 292 (130-400) K/uL MPV 11.4 H (7.4-10.4) fL Immature Gran % (Auto) 0.3 % Neut % (Auto) 88.2 % Lymph % (Auto) 7.3 % [place] % (Auto) 3.7 % Eos % (Auto) 0.4 % Baso % (Auto) 0.1 % Neut # (Auto) 14.70 H (1.4-6.5) K/uL Lymph # (Auto) 1.21 (1.2-3.4) K/uL [place] # (Auto) 0.61 H (0.11-0.59) K/uL Eos # (Auto) 0.07 (0-0.5) K/uL Baso # (Auto) 0.01 (0-0.2) K/uL Immature Gran # (Auto) 0.05 H (0.00-0.02) K/uL VBG pH (7.36-7.41) VBG pCO2 (38-50) mmHg VBG pO2 mmHg VBG HCO3 mmol/L VBG O2 Saturation % VBG Base Excess mEq/L Barometric Pressure mm/Hg POC Sodium (135-144) mmol/L Sodium 122 L (136-145) mmol/L POC Potassium (3.3-5.0) mmol/L Potassium TNP POC Chloride (101-112) mmol/L Chloride 82 L (98-107) mmol/L Carbon Dioxide 18 L (21-32) mmol/L POC Total CO2 (24-31) mmol/L Anion Gap 22 H (3-11) POC Anion Gap (16-25) mmol/L POC BUN (7-18) mg/dl BUN 29 H (6-23) mg/dl Creatinine 1.47 H (0.6-1.4) mg/dl POC Creatinine (0.6-1.3) mg/dl Est Cr Clr Drug Dosing 66.7 ml/min Est GFR ( Amer) 69.6 ml/min Est GFR (Non-Af Amer) 60.1 ml/min BUN/Creatinine Ratio 19.7 (10-20) Glucose 613 H* (70-99(Fasting)) mg/dl POC Glucose > 600 H* (70-99) mg/dl POC Glucose (other) (70-99) mg/dl Calcium 9.6 (8.5-10.1) mg/dl POC Ioniz Calcium Cherie (1.12-1.32) mmol/l Total Bilirubin 0.9 (0.2-1.0) mg/dl AST TNP ALT 25 (7-52) U/L Alkaline Phosphatase 116 H (34-104) U/L Total Protein 8.3 (6.0-8.3) gm/dl Albumin 4.4 (3.4-5.0) gm/dl Globulin 3.9 (2.5-4.0) gm/dl Albumin/Globulin Ratio 1.1 (0.9-2) Lipase 10 L (11-82) U/L Urine Color Urine Appearance (Clear) Urine pH (4.5-7.5) Ur Specific [place] (1.000-1.030) Urine Protein (Negative) Urine Glucose (UA) (Negative) Urine Ketones (Negative) Urine Blood (Negative) Urine Nitrite (Negative) Urine Bilirubin (Negative) Urine Urobilinogen (Negative) Ur Leukocyte Esterase (Negative) SARS-CoV-2, RNA, NAAT (NEGATIVE) 09/10/21 09/10/21 09/10/21 Range/Units 14:27 14:29 14:34 WBC (4.8-10.8) K/uL RBC (4.7-6.1) M/uL Hgb (14.0-18.0) g/dL POC Hgb 18.4 H (14.0-18.0) g/dl Hct (42-52) % POC Hct 54 H (42-52) % MCV (80-100) fL MCH (25-34) pg MCHC (32-36) g/dL RDW Std Deviation (36.4-46.3) fL RDW Coeff of Haily (11.5-14.5) % Plt Count (130-400) K/uL MPV (7.4-10.4) fL Immature Gran % (Auto) % Neut % (Auto) % Lymph % (Auto) % [place] % (Auto) % Eos % (Auto) % Baso % (Auto) % Neut # (Auto) (1.4-6.5) K/uL Lymph # (Auto) (1.2-3.4) K/uL [place] # (Auto) (0.11-0.59) K/uL Eos # (Auto) (0-0.5) K/uL Baso # (Auto) (0-0.2) K/uL Immature Gran # (Auto) (0.00-0.02) K/uL VBG pH 7.31 L (7.36-7.41) VBG pCO2 38 (38-50) mmHg VBG pO2 38 mmHg VBG HCO3 19 mmol/L VBG O2 Saturation 71.6 % VBG Base Excess -6.9 mEq/L Barometric Pressure 731.1 mm/Hg POC Sodium 123 L (135-144) mmol/L Sodium (136-145) mmol/L POC Potassium 6.1 H* (3.3-5.0) mmol/L Potassium POC Chloride 91 L (101-112) mmol/L Chloride (98-107) mmol/L Carbon Dioxide (21-32) mmol/L POC Total CO2 18 L (24-31) mmol/L Anion Gap (3-11) POC Anion Gap 21.0 (16-25) mmol/L POC BUN 29 H (7-18) mg/dl BUN (6-23) mg/dl Creatinine (0.6-1.4) mg/dl POC Creatinine 1.1 (0.6-1.3) mg/dl Est Cr Clr Drug Dosing ml/min Est GFR ( Amer) ml/min Est GFR (Non-Af Amer) ml/min BUN/Creatinine Ratio (10-20) Glucose (70-99(Fasting)) mg/dl POC Glucose (70-99) mg/dl POC Glucose (other) 614 H* (70-99) mg/dl Calcium (8.5-10.1) mg/dl POC Ioniz Calcium Cherie 1.02 L (1.12-1.32) mmol/l Total Bilirubin (0.2-1.0) mg/dl AST ALT (7-52) U/L Alkaline Phosphatase (34-104) U/L Total Protein (6.0-8.3) gm/dl Albumin (3.4-5.0) gm/dl Globulin (2.5-4.0) gm/dl Albumin/Globulin Ratio (0.9-2) Lipase (11-82) U/L Urine Color Yellow Urine Appearance Clear (Clear) Urine pH 5.0 (4.5-7.5) Ur Specific [place] 1.032 H (1.000-1.030) Urine Protein Negative (Negative) Urine Glucose (UA) 3+ H (Negative) Urine Ketones 3+ H (Negative) Urine Blood Negative (Negative) Urine Nitrite Negative (Negative) Urine Bilirubin Negative (Negative) Urine Urobilinogen Negative (Negative) Ur Leukocyte Esterase Negative (Negative) SARS-CoV-2, RNA, NAAT (NEGATIVE) 09/10/21 09/10/21 Range/Units 14:34 14:58 WBC (4.8-10.8) K/uL RBC (4.7-6.1) M/uL Hgb (14.0-18.0) g/dL POC Hgb (14.0-18.0) g/dl Hct (42-52) % POC Hct (42-52) % MCV (80-100) fL MCH (25-34) pg MCHC (32-36) g/dL RDW Std Deviation (36.4-46.3) fL RDW Coeff of Haily (11.5-14.5) % Plt Count (130-400) K/uL MPV (7.4-10.4) fL Immature Gran % (Auto) % Neut % (Auto) % Lymph % (Auto) % [place] % (Auto) % Eos % (Auto) % Baso % (Auto) % Neut # (Auto) (1.4-6.5) K/uL Lymph # (Auto) (1.2-3.4) K/uL [place] # (Auto) (0.11-0.59) K/uL Eos # (Auto) (0-0.5) K/uL Baso # (Auto) (0-0.2) K/uL Immature Gran # (Auto) (0.00-0.02) K/uL VBG pH (7.36-7.41) VBG pCO2 (38-50) mmHg VBG pO2 mmHg VBG HCO3 mmol/L VBG O2 Saturation % VBG Base Excess mEq/L Barometric Pressure mm/Hg POC Sodium (135-144) mmol/L Sodium (136-145) mmol/L POC Potassium (3.3-5.0) mmol/L Potassium POC Chloride (101-112) mmol/L Chloride (98-107) mmol/L Carbon Dioxide (21-32) mmol/L POC Total CO2 (24-31) mmol/L Anion Gap (3-11) POC Anion Gap (16-25) mmol/L POC BUN (7-18) mg/dl BUN (6-23) mg/dl Creatinine (0.6-1.4) mg/dl POC Creatinine (0.6-1.3) mg/dl Est Cr Clr Drug Dosing ml/min Est GFR ( Amer) ml/min Est GFR (Non-Af Amer) ml/min BUN/Creatinine Ratio (10-20) Glucose (70-99(Fasting)) mg/dl POC Glucose 516 H* (70-99) mg/dl POC Glucose (other) (70-99) mg/dl Calcium (8.5-10.1) mg/dl POC Ioniz Calcium Cherie (1.12-1.32) mmol/l Total Bilirubin (0.2-1.0) mg/dl AST ALT (7-52) U/L Alkaline Phosphatase (34-104) U/L Total Protein (6.0-8.3) gm/dl Albumin (3.4-5.0) gm/dl Globulin (2.5-4.0) gm/dl Albumin/Globulin Ratio (0.9-2) Lipase (11-82) U/L Urine Color Urine Appearance (Clear) Urine pH (4.5-7.5) Ur Specific [place] (1.000-1.030) Urine Protein (Negative) Urine Glucose (UA) (Negative) Urine Ketones (Negative) Urine Blood (Negative) Urine Nitrite (Negative) Urine Bilirubin (Negative) Urine Urobilinogen (Negative) Ur Leukocyte Esterase (Negative) SARS-CoV-2, RNA, NAAT NEGATIVE (NEGATIVE) Administered Medications Parenteral Electrolytes (Plasma-Lyte A) 2,000 mls @ 999 mls/hr IV .Q2H1M ONE Stop: 09/10/21 16:06 Last Admin: 09/10/21 15:09 Dose: 999 mls/hr Documented by: [id number] Insulin Human Regular 250 (units/ Sodium Chloride) 250 mls @ 6.8 mls/hr IV .Q24H [facility]; Protocol Stop: 10/10/21 14:44 Last Admin: 09/10/21 15:03 Dose: 6.8 units/hr, 6.8 mls/hr Documented by: [id number] Cosigned by: [id number] Discontinued Medications Sodium Chloride (Nss 1000ml) 1,000 mls @ 999 mls/hr IV .Q1H1M ONE Stop: 09/10/21 14:53 Last Admin: 09/10/21 13:53 Dose: 999 mls/hr Documented by: [id number] Insulin Human Regular (Novolin-R Bolus From Bag) 6.8 units IV ONE ONE Stop: 09/10/21 14:46 Last Admin: 09/10/21 15:08 Dose: 6.8 units Documented by: [id number] Cosigned by: [id number] Discharge Plan Visit Data Chief Complaint: Vomiting Stated Complaint: VOMITING ED Provider: Jeremy Guillermo Discharge Problem: DKA, type 1, Acute hyperglycemia, Acute hyponatremia, Acute hyperkalemia Forms Stand Alone Forms: My [facility] [email or web address] Prescriptions Prescriptions: No Action insulin aspart U-100 [Novolog Flexpen U-100 Insulin] 100 unit/mL (3 mL) insulin pen 50 unit subcut TID Qty: 1 RF: 5 citalopram 20 mg tablet 20 mg PO DAILY Qty: 30 RF: 2 hydroxyzine HCl 10 mg tablet 10 mg PO TID PRN (Reason: anxiety) Qty: 30 RF: 0 (DME) Embrace PRO test strips Strip See Rx Instructions .Route RF: 0 cholecalciferol (vitamin D3) 50 mcg (2,000 unit) capsule 200 mcg PO DAILY RF: 0 cholecalciferol (vitamin D3) 1,250 mcg (50,000 unit) capsule 50,000 unit PO Q7D Qty: 12 RF: 3 (DME) insulin syringe-needle U-100 [BD Insulin Syringe Ultra-Fine] 0.5 mL 31 gauge x 5/16" syringe See Rx Instructions .ROUTE .MEDSUPPLY Qty: 10 RF: 0 levothyroxine 150 mcg tablet 150 mcg PO DAILY Qty: 30 RF: 5 Lantus U-100 Insulin 100 unit/mL solution 25 unit SQ DAILY Qty: 20 RF: 3 Referrals Referrals: Ned Day CRNP [Primary Care Provider] - Discharge Problem: DKA, type 1 Qualifiers: Diabetes mellitus complication detail: without coma Qualified Code(s): E10.10 - Type 1 diabetes mellitus with ketoacidosis without coma
--- NOTE | 2021-09-10 15:44 | History & Physical Report ---
Date of Service September 10, 2021 Assessment & Plan (1) Acute hyperglycemia: Plan: Hyperglycemia resulting in borderline DKA in the setting of medication non- compliance - Glucose > 600, AGAP 22, PH 7.31, HCo3 18 - Volume replaced with 3 liters of crystalloid in the EMD- LR at 125ml/hr following - Continue insulin drip at 0.01units/kg/hr- per DKA protocol fluid change with glucose <250 - BMP q6 hours follow K - no source of infection noted however pending UA- PCT sent - Follow HCO3- likely able to transition to basal bolus insulin later this evening or morning- if gap closes and HCo3 remains 18 or greater - NPO- can have water and ice chips (2) Acute hyponatremia: Plan: Secondary to hyperglycemia - sodium corrects to 136 - Continue with volume replacment and glucose control (3) Acute kidney failure: Plan: Patient with SYSTEM CONSULTANT 1.47 secondary to hypovolemia related to DKA - 3 liters crystalloid received- continue with LR until glucose <250 - BMP q 4 hours (4) Hypothyroidism: Plan: Continue with Synthroid- has not been taking - reluctant to make any changes during acute hospitalization (5) Depression: Plan: Patient with acute depressive episode in the setting of social stressors- lack ing support system at this time as well as struggling with coping skills -psych consult appreciate assistance - Continue with citalopram (6) Leukocytosis: Plan: As above- likely related to hypovolemia - follow PCT and UA - afebrile no pulmonary complaints - follow in AM History of Present Illness Primary Care Provider: Ned Day, PASCUAL 36 YOM with medical history of hypothyroidism, DM I age of onset ~10, Depressi on. Patient comes to the EMD today accompanied by his mother for complaints of hyperglycemia, inability to eat and nausea. He was noted to be hyperglycemic in the EMD to 660 with HC03 of 18 and PH of 7.31. Patient is on basal bolus insulin at home and uses a Dexcom, however socially he is on his 's insurance and they are currently getting . He states that he has not gotten his supplies or able to keep up with his insulin secondary to this. He is also not taking his synthroid. He is overwhelmed and appears to be quite depressed but feels safe, he is also open to getting a support system or someone to be able to talk with him through this. He is open to psychiatric consultation while in house, if they would be able to assist. Overall he is in mild DKA with gap of 22 HCO3 at 18 and PH 7.31 compensated. He has no abdominal pain and his lipase is normal. Either way he will need volume replaced, insulin drip and electrolytes followed closely. Will, continue his insulin infusion at 0.01 units/kg, admit to PCU, BMP q6 hours, and replace electrolytes as needed. COVID test on admission is: NEGATIVE Allergies Allergy/AdvReac Type Severity Reaction Status Date / Time amoxicillin Allergy Intermediate Hives Verified 09/10/21 15:47 Home Medications Medication Instructions Recorded Confirmed Type insulin syringe-needle U-100 0.5 #10 ea 12/07/19 07/01/21 History mL 31 gauge x 5/16" (BD Insulin Syringe Ultra-Fine) blood sugar diagnostic (Embrace 01/16/21 07/01/21 History PRO test strips) citalopram 20 mg tablet 20 mg PO DAILY #30 tab 05/31/21 09/10/21 Rx levothyroxine 150 mcg tablet 150 mcg PO DAILY #30 tab 07/02/21 09/10/21 Rx insulin glargine 100 unit/mL 25 unit SQ DAILY #20 ml 07/06/21 09/10/21 Rx subcutaneous solution (Lantus U-100 Insulin) insulin aspart U-100 100 unit/mL 0 unit SUBCUT TIDM 09/10/21 09/10/21 History (3 mL) subcutaneous pen (Novolog Flexpen U-100 Insulin aspart) Past Med/Surg History Medical History Acute kidney failure Hospitalization 04/29/21- Creat 4.9 Depression Diabetes type 1, uncontrolled DKA, type 1 Hospitalization 04/29/21 Dyslipidemia Kaykay's thyroiditis Hypothyroidism Tobacco abuse Uncontrolled type 1 diabetes mellitus, with long-term current use of insulin Vitamin D deficiency Surgical History No pertinent past surgical history Family History Denies family history of Ovarian cancer Prostate cancer Myocardial infarction Breast cancer Colorectal cancer Cancer Social History Smoking Status: Current every day smoker Tobacco Type: Cigarettes Cigarettes Per Day: 5-6; Second Hand Exposure: Yes; Do You Dip or Chew Tobacco: No; Tobacco Cessation Education Requested by Patient: No Hx Alcohol Use: No Hx Substance Use: Yes Substance Use Type Other:: 10 YEARS AGO LAST USED Preferred Language: Croatian Communication Ability: Effective Smoke Chaser Required: No Beliefs That Will Affect Care: None marital status: Current Living Situation: Alone current occupational status: employed 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 Other Information That Helps Us Care for You: No Feels Safe at Home: Yes Safety Concerns: Feels Safe At This Time Dental Care, Regularly: No Physical Activity Frequency: Daily Seatbelt Use: always Sunscreen Use: No Assistive Devices: Glasses Review of Systems Review of Systems: REVIEW OF SYSTEMS: Constitutional: (+) feels sad and helpless, No fever, sweats or chills, Eyes: No diplopia, no worsening or blurred vision ENT: normal hearing, no trouble swallowing Respiratory: No cough, sputum, dyspnea at rest or on exertion Cardiovascular: No chest pain, tightness or palpitations Abdomen: No pain, nausea, vomiting, diarrhea or constipation Musculoskeletal: (+) burning in legs, No joint pain, calf pain, swelling Neurologic: No weakness, numbness/tingling, or balance problems Psychiatric: (+) depression, No anxiety Skin: No rash or itch Physical Exam Physical Exam: PHYSICAL EXAM: General: awake, alert, no apparent distress Head: Normocephalic, atraumatic ENT: PERRL, EOMI, no pharyngeal exudate, mucous membranes dry Neuro: AAO x 3, speech clear and appropriate, strength intact bilaterally 5/5, sensation intact and equal all extremities and dermatomes, no pronator drift Chest: equal rise and fall of the chest, no accessory muscle use, no heaves or thrills, Clear to auscultation, on room air, Cardiac: Regular rate and rhythm, telemetry reviewed, skin warm dry, cap refill <3 seconds, peripheral pulses +2 no JVD, no murmur, no edema GI: NABS x 4 quadrants, soft, nontender to palpation, no rebound, guarding or tenderness : Spontaneously voiding, no pain, no CVA tenderness, Extremities: Normal inspection, no peripheral edema or erythema, calfs nontender to palpation Psych: Normal mood and affect Skin: no rash or erythema Results & Data Results & Data ([facility]) Vital Signs (Past 12 Hours) Vital Signs Temp Pulse Resp BP Pulse Ox 09/10/21 13:49 36.8 C 108 H 17 120/86 97 Laboratory Results Abnormal lab results 09/10/21 09/10/21 09/10/21 Range/Units 13:52 14:07 14:07 WBC 16.65 H (4.8-10.8) K/uL Hgb 18.2 H (14.0-18.0) g/dL POC Hgb (14.0-18.0) g/dl POC Hct (42-52) % MCHC 37.0 H (32-36) g/dL MPV 11.4 H (7.4-10.4) fL Neut # (Auto) 14.70 H (1.4-6.5) K/uL [place]iot # (Auto) 0.61 H (0.11-0.59) K/uL Immature Gran # (Auto) 0.05 H (0.00-0.02) K/uL VBG pH (7.36-7.41) POC Sodium (135-144) mmol/L Sodium 122 L (136-145) mmol/L POC Potassium (3.3-5.0) mmol/L POC Chloride (101-112) mmol/L Chloride 82 L (98-107) mmol/L Carbon Dioxide 18 L (21-32) mmol/L POC Total CO2 (24-31) mmol/L Anion Gap 22 H (3-11) POC BUN (7-18) mg/dl BUN 29 H (6-23) mg/dl Creatinine 1.47 H (0.6-1.4) mg/dl Glucose 613 H* (70-99(Fasting)) mg/dl POC Glucose > 600 H* (70-99) mg/dl POC Glucose (other) (70-99) mg/dl POC Ioniz Calcium Cherie (1.12-1.32) mmol/l Alkaline Phosphatase 116 H (34-104) U/L Lipase 10 L (11-82) U/L Ur Specific Jackson (1.000-1.030) Urine Glucose (UA) (Negative) Urine Ketones (Negative) 09/10/21 09/10/21 09/10/21 Range/Units 14:27 14:29 14:34 WBC (4.8-10.8) K/uL Hgb (14.0-18.0) g/dL POC Hgb 18.4 H (14.0-18.0) g/dl POC Hct 54 H (42-52) % MCHC (32-36) g/dL MPV (7.4-10.4) fL Neut # (Auto) (1.4-6.5) K/uL [place] # (Auto) (0.11-0.59) K/uL Immature Gran # (Auto) (0.00-0.02) K/uL VBG pH 7.31 L (7.36-7.41) POC Sodium 123 L (135-144) mmol/L Sodium (136-145) mmol/L POC Potassium 6.1 H* (3.3-5.0) mmol/L POC Chloride 91 L (101-112) mmol/L Chloride (98-107) mmol/L Carbon Dioxide (21-32) mmol/L POC Total CO2 18 L (24-31) mmol/L Anion Gap (3-11) POC BUN 29 H (7-18) mg/dl BUN (6-23) mg/dl Creatinine (0.6-1.4) mg/dl Glucose (70-99(Fasting)) mg/dl POC Glucose (70-99) mg/dl POC Glucose (other) 614 H* (70-99) mg/dl POC Ioniz Calcium Cherie 1.02 L (1.12-1.32) mmol/l Alkaline Phosphatase (34-104) U/L Lipase (11-82) U/L Ur Specific Jackson 1.032 H (1.000-1.030) Urine Glucose (UA) 3+ H (Negative) Urine Ketones 3+ H (Negative) 09/10/21 Range/Units 14:58 WBC (4.8-10.8) K/uL Hgb (14.0-18.0) g/dL POC Hgb (14.0-18.0) g/dl POC Hct (42-52) % MCHC (32-36) g/dL MPV (7.4-10.4) fL Neut # (Auto) (1.4-6.5) K/uL [place] # (Auto) (0.11-0.59) K/uL Immature Gran # (Auto) (0.00-0.02) K/uL VBG pH (7.36-7.41) POC Sodium (135-144) mmol/L Sodium (136-145) mmol/L POC Potassium (3.3-5.0) mmol/L POC Chloride (101-112) mmol/L Chloride (98-107) mmol/L Carbon Dioxide (21-32) mmol/L POC Total CO2 (24-31) mmol/L Anion Gap (3-11) POC BUN (7-18) mg/dl BUN (6-23) mg/dl Creatinine (0.6-1.4) mg/dl Glucose (70-99(Fasting)) mg/dl POC Glucose 516 H* (70-99) mg/dl POC Glucose (other) (70-99) mg/dl POC Ioniz Calcium Cherie (1.12-1.32) mmol/l Alkaline Phosphatase (34-104) U/L Lipase (11-82) U/L Ur Specific Jackson (1.000-1.030) Urine Glucose (UA) (Negative) Urine Ketones (Negative) Diagnostic Findings none Medications Administered Home Medications insulin syringe-needle U-100 0.5 mL 31 gauge x 5/16" (BD Insulin Syringe Ultra- Fine) #10 ea 12/07/19 [History Confirmed 07/01/21] blood sugar diagnostic (Embrace PRO test strips) 01/16/21 [History Confirmed 07/01/21] citalopram 20 mg tablet 20 mg PO DAILY #30 tab 05/31/21 [Rx Confirmed 07/01/21] levothyroxine 150 mcg tablet 150 mcg PO DAILY #30 tab 07/02/21 [Rx Confirmed 07/02/21] insulin glargine 100 unit/mL subcutaneous solution (Lantus U-100 Insulin) 25 unit SQ DAILY #20 ml 07/06/21 [Rx Confirmed 07/06/21] insulin aspart U-100 100 unit/mL (3 mL) subcutaneous pen (Novolog Flexpen U-100 Insulin aspart) 0 unit SUBCUT TIDM 09/10/21 [History Confirmed 09/10/21] Active Medications Dextrose (Dextrose 50% 50 Ml Syringe) 25 - 50 ml IV UD PRN; Protocol PRN Reason: Hypoglycemia Protocol Stop: 10/10/21 14:34 Glucagon (Glucagon For Inj 1 Mg Vial) 1 mg SQ UD PRN; Protocol PRN Reason: Hypoglycemia Protocol Stop: 10/10/21 14:34 Glucose (Glucose 10 Tabs/Tube) 4 - 8 tabs PO UD PRN; Protocol PRN Reason: Hypoglycemia Protocol Stop: 10/10/21 14:34 Glucose (Glucose 40% Gel 15 Gm Tube) 15 - 30 gm PO UD PRN; Protocol PRN Reason: Hypoglycemia Protocol Stop: 10/10/21 14:34 Parenteral Electrolytes (Plasma-Lyte A) 2,000 mls @ 999 mls/hr IV .Q2H1M ONE Stop: 09/10/21 16:06 Last Admin: 09/10/21 15:09 Dose: 999 mls/hr Documented by: Insulin Human Regular 250 (units/ Sodium Chloride) 250 mls @ 6.8 mls/hr IV . Q24H JULIÁN; Protocol Stop: 10/10/21 14:44 Last Admin: 09/10/21 15:03 Dose: 6.8 units/hr, 6.8 mls/hr Documented by: Insulin Aspart (Insulin Aspart Per Unit) 0 units SC ACHS JULIÁN Stop: 10/10/21 16:29 Miscellaneous (Carbohydrates For Hypoglycemia ) 15 - 30 gm PO UD PRN PRN Reason: Hypoglycemia Protocol Stop: 10/10/21 14:34 Parenteral Electrolytes (Plasma-Lyte A) 2,000 mls @ 999 mls/hr IV .Q2H1M ONE Stop: 09/10/21 16:06 Last Admin: 09/10/21 15:09 Dose: 999 mls/hr Documented by: [id number] Insulin Human Regular 250 (units/ Sodium Chloride) 250 mls @ 6.8 mls/hr IV .Q24H JULIÁN; Protocol Stop: 10/10/21 14:44 Last Admin: 09/10/21 15:03 Dose: 6.8 units/hr, 6.8 mls/hr Documented by: [id number] Cosigned by: [id number] Discontinued Medications Sodium Chloride (Nss 1000ml) 1,000 mls @ 999 mls/hr IV .Q1H1M ONE Stop: 09/10/21 14:53 Last Admin: 09/10/21 13:53 Dose: 999 mls/hr Documented by: [id number] Insulin Human Regular (Novolin-R Bolus From Bag) 6.8 units IV ONE ONE Stop: 09/10/21 14:46 Last Admin: 09/10/21 15:08 Dose: 6.8 units Documented by: [id number] Cosigned by: [id number] Miscellaneous (Stat Insulin Drip) 1 ea N/A NOW STA Stop: 09/10/21 14:36 Last Admin: 09/10/21 15:53 Dose: Not Given Documented by: [id number] Code Status & VTE Plan Code Status CODE: FULL VTE: SCDS, ambulation VTE Prophylaxis Plan VTE Prophylaxis will be ordered: Yes Supervising Physician Co-Signing Physician Notes I personally saw and examined the patient. I verified all obrien points and agree with PASCUAL Watson with the following exceptions and/or additions: 36 year old male admission for nausea and vomiting. No fever, chills, respiratory illness. Usually on Lantus 25 units QAM and carb ratio 10g/unit with unknown correction factor. Intermittently giving himself insulin as having trouble getting supplies as on his 's insurance and currently getting . O/E Alert, Chest CTAB, HS1+2, no murmurs, Abdo SNT A/P Hyperglycemia - not diagnostic of DKA given pH > 7.3 but with significant anion gap, hyperkalemia, hyponatremia and MATTIE. DKA protocol order set used. Anion gap closing. IV fluids switched to D5/halfNSS+20meqKCl. Hypothyroidism - not taking his usual levothyroxine therefore TSH will be high and value would not bladder changer. Presentation not consistent with myxedema coma. PG Care Time/CCT Total # of Minutes Spent Total Time Spent with Patient: Total time spent is greater than 50% in coordination of care (as documented) at patient's floor/unit and/or counseling patient: Coding Level of Care Code 34826 Initial Inpt Care Lvl 3 Diagnoses Acute hyperglycemia R73.9 Acute hyponatremia E87.1 Acute kidney failure N17.9 Hypothyroidism E03.9 Depression F32.A Leukocytosis D72.829
--- NOTE | 2021-09-10 15:57 | XRay Report ---
SINGLE VIEW CHEST CLINICAL HISTORY: Hyperglycemia FINDINGS: An AP, portable, upright chest radiograph is compared to study dated 09/02/2019. The examinat ion is degraded by portable technique and atypical lordotic positioning. The cardiomediastinal silhou ette is unremarkable. The lungs and pleural spaces are clear. No pneumothorax is seen. The bony thora x is grossly intact. IMPRESSION: No active disease in the chest. ACT 112: Negative or not required by law. Electronically signed by: Guillermo Vivas M.D. 09/10/2021 3:56 PM
[2021-09-10 16:17] LABS: Potassium 5.6 mmol/L (3.5-5.1)
[2021-09-10 16:18] LABS: Phosphorus 4.1 mg/dl (2.5-4.9)
[2021-09-10] MEDS ORDERED: ACETAMINOPHEN 325 MG TAB PO PRN (18:13)
[2021-09-10] MEDS ORDERED: LACTATED RINGER'S 1,000 ML IV SCH (18:13)
[2021-09-10] MEDS ORDERED: PHARMACY GLYCEMIC MGMT CONSULT PRN (18:13)
[2021-09-10] MEDS ORDERED: ONDANSETRON INJ 2 MG/ML 2 ML VIAL IV PRN (18:13)
[2021-09-10] MEDS: INSULIN ASPART PER UNIT SC SCH ×2 (18:21→20:42)
[2021-09-10 18:56] LABS: BUN Creatinine Ratio 23.5 (10-20); Calcium 7.6 mg/dl (8.5-10.1); Creatinine Clr Calc Pharmacy 102.5 ml/min; Est GFR (African American) 113.7 ml/min; Est GFR (Non-African American) 98.1 ml/min
[2021-09-10] MEDS ORDERED: POTASSIUM CHLORIDE 10 MEQ TABCR PO STA (19:10)
--- NOTE | 2021-09-10 19:19 | Electrocardiogram Report ---
Test Reason : Blood Pressure : / mmHG Vent. Rate : 081 BPM Atrial Rate : 081 BPM P-R Int : 114 ms QRS Dur : 086 ms QT Int : 402 ms P-R-T Axes : 070 044 034 degrees QTc Int : 466 ms Normal sinus rhythm Possible Left atrial enlargement Nonspecific ST abnormality Abnormal ECG No previous ECGs available Confirmed by Jose Miguel Slaughter ([id number]) on 09/10/2021 7:19:01 PM Referred By: REFERRED SELF Confirmed By:Yousif Slaughter
[2021-09-10] MEDS: LANSOPRAZOLE 15 MG SOLTAB PO SCH (19:55)
[2021-09-10] MEDS ORDERED: D5W AND 1/2NSS + 20MEQ KCL 20 MEQ/1,000 ML BAG IV SCH (21:15)
[2021-09-10 23:24] LABS: BUN Creatinine Ratio 22.8 (10-20); Calcium 8.6 mg/dl (8.5-10.1); Creatinine Clr Calc Pharmacy 99.4 ml/min; Est GFR (African American) 109.6 ml/min; Est GFR (Non-African American) 94.6 ml/min; Potassium 3.9 mmol/L (3.5-5.1)
[2021-09-10] MEDS ORDERED: INSULIN GLARGINE SOLOSTAR 100 UNITS/ML 3 ML PEN SC STA (23:45)
--- NOTE | 2021-09-10 23:52 | Communication Note ---
Date of Service: September 10, 2021 Pt's 2300 labs showing glucose of 93 with bicarb 26, anion gap of 8, and potassium 3.9. Communicated with nurse who stated insulin drip had been on hold per protocol due to low BSG until back up to 150 -- last check had been 112 per RN. Patient has been doing well with no neurologic issues and no COX, dizziness, n/v at this time. Spoke to pharmacy regarding lab results -- bicarb and anion gap now back WNL. Per discussion pharmacy will discontinue insulin drip at this time and administer 80% of Lantus dose and we will plan to continue dextrose-containing fluids at 100 cc/h due to blood sugars being on the lower side. Plan to recheck sugars and adjust fluids/insulin dosing accordingly. I have ordered a BMP at 3AM for continued monitoring.
[2021-09-11] MEDS: INSULIN ASPART PER UNIT SC SCH ×6 (00:02→21:44)
[2021-09-11] MEDS ORDERED: [UNRECOGNIZED DRUG - REMARK] ONE (02:00)
[2021-09-11 03:29] LABS: Calcium 7.9 mg/dl (8.5-10.1); Creatinine Clr Calc Pharmacy 100.4 ml/min; Est GFR (African American) 110.9 ml/min; Est GFR (Non-African American) 95.7 ml/min; Potassium 4.6 mmol/L (3.5-5.1)
[2021-09-11 03:51] LABS: Basophils # (auto) 0.01 K/uL (0-0.2); Basophils % (auto) 0.1 %; Eosinophils # (auto) 0.27 K/uL (0-0.5); Eosinophils % (auto) 2.1 %; Hematocrit (blood only) 38.7 % (42-52); Hemoglobin 14.3 g/dL (14.0-18.0); Immature Granulocytes # (auto) 0.02 K/uL (0.00-0.02); Immature Granulocytes % (auto) 0.2 %; Lymphocytes # (auto) 2.38 K/uL (1.2-3.4); Lymphocytes % (auto) 18.9 %; Mean Corpuscular Hemoglobin 32.1 pg (25-34); Mean Platelet Volume 10.5 fL (7.4-10.4); Monocytes # (auto) 0.87 K/uL (0.11-0.59); Monocytes % (auto) 6.9 %; Neutrophils # (auto) 9.06 K/uL (1.4-6.5); Neutrophils % (auto) 71.8 %; Platelet Count 221 K/uL (130-400); RDW Coefficient of Variation 12.1 % (11.5-14.5); Red Blood Count 4.45 M/uL (4.7-6.1); White Blood Count 12.61 K/uL (4.8-10.8)
[2021-09-11] MEDS: SODIUM CHLOR 0.45% + 20MEQ KCL 20 MEQ/1,000 ML BAG IV SCH ×2 (03:54→13:56)
[2021-09-11] MEDS: LEVOTHYROXINE SODIUM 150 MCG TABLET PO SCH (05:23)
[2021-09-11] MEDS: LANSOPRAZOLE 15 MG SOLTAB PO SCH ×2 (07:55→21:44)
[2021-09-11] MEDS: CITALOPRAM 20 MG TAB PO SCH (07:55)
[2021-09-11] MEDS ORDERED: INSULIN GLARGINE SOLOSTAR 100 UNITS/ML 3 ML PEN SC ONE ×2 (08:00→16:30)
--- NOTE | 2021-09-11 08:03 | Psychiatric Consultation ---
Date of Consultation September 11, 2021 Impression / Recommendations Impression 36 yo male with worsening stress and med compliance issues in the setting of divorce. (1) Depression: (2) Uncontrolled type 1 diabetes mellitus, with long-term current use of insulin: (3) Kaykay's thyroiditis: liaison provide purple book with [facility], his lack of insurance is a barrier, will educate re: CVIM as he does work in [facility]. Continue Celexa, if truly taking consistently would benefit from increase to 30 mg daily, will defer since currently states he's not taking PO consistently Risk Factors Assessment Do You Have Access To A Gun?: No (denied) Psych History Identifying Data 36 yo male from [place] admit 09/10/21 for borderline DKA in the setting of medication non-compliance. Consult is by hospitalist service for depression. Chief Complaint "stress" History of Present Illness The patient was diagnosed with Type I DM age 10 and has been hospitalized a few times for DKA, this episode was precipitated by non compliance with insulin. It was initially noted that this was due to lapse of insurance but movement toward divorce only discussed in past few days. He denies that his compliance issues were intentional to harm himself just "not taking as good care of myself in general" Apparently was on 's plan. He has also not been taking his Synthroid. He is also prescribed Celexa, max 20 mg. He gives mixed reports on whether or not he is taking it consistently prior to this admission. 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 Dusty scored a 17 on PHQ-9, mainly scoring for anhedonia, trouble with sleep, feeling down and bad about self or things working out, trouble concentrating, etc. He has thoughts like "wish I could sleep this away but not ." Past Psychiatric History Outpatient Services: on SSRI for past year by PCP Previous Psych Admissions: denied Do You Have Access To A Gun?: No (denied) Allergies Allergy/AdvReac Type Severity Reaction Status Date / Time amoxicillin Allergy Intermediate Hives Verified 09/10/21 15:47 Home Medications Medication Instructions Recorded Confirmed Type insulin syringe-needle U-100 0.5 #10 ea 12/07/19 07/01/21 History mL 31 gauge x 5/16" (BD Insulin Syringe Ultra-Fine) blood sugar diagnostic (Embrace 01/16/21 07/01/21 History PRO test strips) citalopram 20 mg tablet 20 mg PO DAILY #30 tab 05/31/21 09/10/21 Rx levothyroxine 150 mcg tablet 150 mcg PO DAILY #30 tab 07/02/21 09/10/21 Rx insulin glargine 100 unit/mL 25 unit SQ DAILY #20 ml 07/06/21 09/10/21 Rx subcutaneous solution (Lantus U-100 Insulin) insulin aspart U-100 100 unit/mL 0 unit SUBCUT TIDM 09/10/21 09/10/21 History (3 mL) subcutaneous pen (Novolog Flexpen U-100 Insulin aspart) Personal History 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[employer]) Marital Status: Beliefs That Will Affect Care: None History of Legal Problems: denied Patient History Medical History Acute kidney failure Hospitalization 04/29/21- Creat 4.9 Depression Diabetes type 1, uncontrolled DKA, type 1 Hospitalization 04/29/21 Dyslipidemia Kaykay's thyroiditis Hypothyroidism Tobacco abuse Uncontrolled type 1 diabetes mellitus, with long-term current use of insulin Vitamin D deficiency Surgical History No pertinent past surgical history Family History Denies family history of Ovarian cancer Prostate cancer Myocardial infarction Breast cancer Colorectal cancer Cancer Social History Smoking Status: Current every day smoker Tobacco Type: Cigarettes Cigarettes Per Day: 5-6; Second Hand Exposure: Yes; Hx Alcohol Use: No Hx Substance Use: Yes Substance Use Type Other:: 10 YEARS AGO LAST USED Preferred Language: Citizen [place] Communication Ability: Effective [place] Required: No Beliefs That Will Affect Care: None marital status: Current Living Situation: Alone current occupational status: employed 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 Feels Safe at Home: Yes Dental Care, Regularly: No Physical Activity Frequency: Daily Seatbelt Use: always Sunscreen Use: No Assistive Devices: None Physical Exam Psychiatric: Orientation: alert and oriented x 3 Apperance: appropriately dressed and appropriately groomed Eye Contact: good eye contact Motor Behavior: no abnormal motor movements Speech: normal rate/rhythm/volume of speech Affect: + depressed affect Mood: + depressed mood Thought Process: goal directed thought process Thought Content: reality based without delusions Suicidal Thoughts: denies suicidal thoughts Homicidal Thoughts: denies homicidal thoughts Hallucinations: no auditory hallucinations and no visual hallucinations Cognition: attention grossly intact and language jonathan sly intact Estimated Intelligence: consistent with education level Vital Signs (Past 24 Hours): Last Vital Signs Temp 36.6 C 09/11/21 07:29 Pulse 67 09/11/21 07:29 Resp 17 09/11/21 07:29 BP 113/63 09/11/21 07:29 Pulse Ox 96 09/11/21 07:29 Review of Systems All systems reviewed & are unremarkable except as noted in HPI & below Results & Data (PSY) Laboratory Results 09/11/21 09/11/21 09/11/21 Range/Units 07:26 03:19 02:57 WBC 12.61 H (4.8-10.8) K/uL RBC 4.45 L (4.7-6.1) M/uL Hgb 14.3 D (14.0-18.0) g/dL POC Hgb (14.0-18.0) g/dl Hct 38.7 L (42-52) % POC Hct (42-52) % MCV 87.0 (80-100) fL MCH 32.1 (25-34) pg MCHC 37.0 H (32-36) g/dL RDW Std Deviation 39.0 (36.4-46.3) fL RDW Coeff of Haily 12.1 (11.5-14.5) % Plt Count 221 (130-400) K/uL MPV 10.5 H (7.4-10.4) fL Immature Gran % (Auto) 0.2 % Neut % (Auto) 71.8 % Lymph % (Auto) 18.9 % [place] % (Auto) 6.9 % Eos % (Auto) 2.1 % Baso % (Auto) 0.1 % Neut # (Auto) 9.06 H (1.4-6.5) K/uL Lymph # (Auto) 2.38 (1.2-3.4) K/uL [place] # (Auto) 0.87 H (0.11-0.59) K/uL Eos # (Auto) 0.27 (0-0.5) K/uL Baso # (Auto) 0.01 (0-0.2) K/uL Immature Gran # (Auto) 0.02 (0.00-0.02) K/uL VBG pH (7.36-7.41) VBG pCO2 (38-50) mmHg VBG pO2 mmHg VBG HCO3 mmol/L VBG O2 Saturation % VBG Base Excess mEq/L Barometric Pressure mm/Hg POC Sodium (135-144) mmol/L Sodium (136-145) mmol/L POC Potassium (3.3-5.0) mmol/L Potassium POC Chloride (101-112) mmol/L Chloride (98-107) mmol/L Carbon Dioxide (21-32) mmol/L POC Total CO2 (24-31) mmol/L Anion Gap (3-11) POC Anion Gap (16-25) mmol/L POC BUN (7-18) mg/dl BUN (6-23) mg/dl Creatinine (0.6-1.4) mg/dl POC Creatinine (0.6-1.3) mg/dl Est Cr Clr Drug Dosing ml/min Est GFR ( Amer) ml/min Est GFR (Non-Af Amer) ml/min BUN/Creatinine Ratio (10-20) Glucose (70-99(Fasting)) mg/dl POC Glucose 227 H 269 H (70-99) mg/dl POC Glucose (other) (70-99) mg/dl Calcium (8.5-10.1) mg/dl POC Ioniz Calcium Cherie (1.12-1.32) mmol/l Phosphorus (2.5-4.9) mg/dl Magnesium (1.7-2.4) mg/dl Total Bilirubin (0.2-1.0) mg/dl AST ALT (7-52) U/L Alkaline Phosphatase (34-104) U/L Total Protein (6.0-8.3) gm/dl Albumin (3.4-5.0) gm/dl Globulin (2.5-4.0) gm/dl Albumin/Globulin Ratio (0.9-2) Lipase (11-82) U/L Procalcitonin (0-0.5) ng/ml Urine Color Urine Appearance (Clear) Urine pH (4.5-7.5) Ur Specific [place] (1.000-1.030) Urine Protein (Negative) Urine Glucose (UA) (Negative) Urine Ketones (Negative) Urine Blood (Negative) Urine Nitrite (Negative) Urine Bilirubin (Negative) Urine Urobilinogen (Negative) Ur Leukocyte Esterase (Negative) SARS-CoV-2, RNA, NAAT (NEGATIVE) 09/11/21 09/10/21 09/10/21 Range/Units 02:57 23:32 22:47 WBC (4.8-10.8) K/uL RBC (4.7-6.1) M/uL Hgb (14.0-18.0) g/dL POC Hgb (14.0-18.0) g/dl Hct (42-52) % POC Hct (42-52) % MCV (80-100) fL MCH (25-34) pg MCHC (32-36) g/dL RDW Std Deviation (36.4-46.3) fL RDW Coeff of Haily (11.5-14.5) % Plt Count (130-400) K/uL MPV (7.4-10.4) fL Immature Gran % (Auto) % Neut % (Auto) % Lymph % (Auto) % [place] % (Auto) % Eos % (Auto) % Baso % (Auto) % Neut # (Auto) (1.4-6.5) K/uL Lymph # (Auto) (1.2-3.4) K/uL [place] # (Auto) (0.11-0.59) K/uL Eos # (Auto) (0-0.5) K/uL Baso # (Auto) (0-0.2) K/uL Immature Gran # (Auto) (0.00-0.02) K/uL VBG pH (7.36-7.41) VBG pCO2 (38-50) mmHg VBG pO2 mmHg VBG HCO3 mmol/L VBG O2 Saturation % VBG Base Excess mEq/L Barometric Pressure mm/Hg POC Sodium (135-144) mmol/L Sodium 129 L 132 L (136-145) mmol/L POC Potassium (3.3-5.0) mmol/L Potassium 4.6 3.9 POC Chloride (101-112) mmol/L Chloride 96 L 98 (98-107) mmol/L Carbon Dioxide 22 26 (21-32) mmol/L POC Total CO2 (24-31) mmol/L Anion Gap 11 8 (3-11) POC Anion Gap (16-25) mmol/L POC BUN (7-18) mg/dl BUN 24 H 23 (6-23) mg/dl Creatinine 1.00 1.01 (0.6-1.4) mg/dl POC Creatinine (0.6-1.3) mg/dl Est Cr Clr Drug Dosing 100.4 99.4 ml/min Est GFR ( Amer) 110.9 109.6 ml/min Est GFR (Non-Af Amer) 95.7 94.6 ml/min BUN/Creatinine Ratio 24.0 H 22.8 H (10-20) Glucose 281 H 93 (70-99(Fasting)) mg/dl POC Glucose 112 H (70-99) mg/dl POC Glucose (other) (70-99) mg/dl Calcium 7.9 L 8.6 (8.5-10.1) mg/dl POC Ioniz Calcium Cherie (1.12-1.32) mmol/l Phosphorus (2.5-4.9) mg/dl Magnesium 2.0 (1.7-2.4) mg/dl Total Bilirubin (0.2-1.0) mg/dl AST ALT (7-52) U/L Alkaline Phosphatase (34-104) U/L Total Protein (6.0-8.3) gm/dl Albumin (3.4-5.0) gm/dl Globulin (2.5-4.0) gm/dl Albumin/Globulin Ratio (0.9-2) Lipase (11-82) U/L Procalcitonin (0-0.5) ng/ml Urine Color Urine Appearance (Clear) Urine pH (4.5-7.5) Ur Specific Tom[place] (1.000-1.030) Urine Protein (Negative) Urine Glucose (UA) (Negative) Urine Ketones (Negative) Urine Blood (Negative) Urine Nitrite (Negative) Urine Bilirubin (Negative) Urine Urobilinogen (Negative) Ur Leukocyte Esterase (Negative) SARS-CoV-2, RNA, NAAT (NEGATIVE) 09/10/21 09/10/21 09/10/21 Range/Units 22:47 22:10 21:12 WBC (4.8-10.8) K/uL RBC (4.7-6.1) M/uL Hgb (14.0-18.0) g/dL POC Hgb (14.0-18.0) g/dl Hct (42-52) % POC Hct (42-52) % MCV (80-100) fL MCH (25-34) pg MCHC (32-36) g/dL RDW Std Deviation (36.4-46.3) fL RDW Coeff of Haily (11.5-14.5) % Plt Count (130-400) K/uL MPV (7.4-10.4) fL Immature Gran % (Auto) % Neut % (Auto) % Lymph % (Auto) % [place] % (Auto) % Eos % (Auto) % Baso % (Auto) % Neut # (Auto) (1.4-6.5) K/uL Lymph # (Auto) (1.2-3.4) K/uL [place] # (Auto) (0.11-0.59) K/uL Eos # (Auto) (0-0.5) K/uL Baso # (Auto) (0-0.2) K/uL Immature Gran # (Auto) (0.00-0.02) K/uL VBG pH (7.36-7.41) VBG pCO2 (38-50) mmHg VBG pO2 mmHg VBG HCO3 mmol/L VBG O2 Saturation % VBG Base Excess mEq/L Barometric Pressure mm/Hg POC Sodium (135-144) mmol/L Sodium (136-145) mmol/L POC Potassium (3.3-5.0) mmol/L Potassium POC Chloride (101-112) mmol/L Chloride (98-107) mmol/L Carbon Dioxide (21-32) mmol/L POC Total CO2 (24-31) mmol/L Anion Gap (3-11) POC Anion Gap (16-25) mmol/L POC BUN (7-18) mg/dl BUN (6-23) mg/dl Creatinine (0.6-1.4) mg/dl POC Creatinine (0.6-1.3) mg/dl Est Cr Clr Drug Dosing ml/min Est GFR ( Amer) ml/min Est GFR (Non-Af Amer) ml/min BUN/Creatinine Ratio (10-20) Glucose (70-99(Fasting)) mg/dl POC Glucose 104 H 120 H (70-99) mg/dl POC Glucose (other) (70-99) mg/dl Calcium (8.5-10.1) mg/dl POC Ioniz Calcium Cherie (1.12-1.32) mmol/l Phosphorus (2.5-4.9) mg/dl Magnesium (1.7-2.4) mg/dl Total Bilirubin (0.2-1.0) mg/dl AST ALT (7-52) U/L Alkaline Phosphatase (34-104) U/L Total Protein (6.0-8.3) gm/dl Albumin (3.4-5.0) gm/dl Globulin (2.5-4.0) gm/dl Albumin/Globulin Ratio (0.9-2) Lipase (11-82) U/L Procalcitonin 0.52 H (0-0.5) ng/ml Urine Color Urine Appearance (Clear) Urine pH (4.5-7.5) Ur Specific [place] (1.000-1.030) Urine Protein (Negative) Urine Glucose (UA) (Negative) Urine Ketones (Negative) Urine Blood (Negative) Urine Nitrite (Negative) Urine Bilirubin (Negative) Urine Urobilinogen (Negative) Ur Leukocyte Esterase (Negative) SARS-CoV-2, RNA, NAAT (NEGATIVE) 09/10/21 09/10/21 09/10/21 Range/Units 20:12 19:14 18:14 WBC (4.8-10.8) K/uL RBC (4.7-6.1) M/uL Hgb (14.0-18.0) g/dL POC Hgb (14.0-18.0) g/dl Hct (42-52) % POC Hct (42-52) % MCV (80-100) fL MCH (25-34) pg MCHC (32-36) g/dL RDW Std Deviation (36.4-46.3) fL RDW Coeff of Haily (11.5-14.5) % Plt Count (130-400) K/uL MPV (7.4-10.4) fL Immature Gran % (Auto) % Neut % (Auto) % Lymph % (Auto) % [place] % (Auto) % Eos % (Auto) % Baso % (Auto) % Neut # (Auto) (1.4-6.5) K/uL Lymph # (Auto) (1.2-3.4) K/uL [place] # (Auto) (0.11-0.59) K/uL Eos # (Auto) (0-0.5) K/uL Baso # (Auto) (0-0.2) K/uL Immature Gran # (Auto) (0.00-0.02) K/uL VBG pH (7.36-7.41) VBG pCO2 (38-50) mmHg VBG pO2 mmHg VBG HCO3 mmol/L VBG O2 Saturation % VBG Base Excess mEq/L Barometric Pressure mm/Hg POC Sodium (135-144) mmol/L Sodium (136-145) mmol/L POC Potassium (3.3-5.0) mmol/L Potassium POC Chloride (101-112) mmol/L Chloride (98-107) mmol/L Carbon Dioxide (21-32) mmol/L POC Total CO2 (24-31) mmol/L Anion Gap (3-11) POC Anion Gap (16-25) mmol/L POC BUN (7-18) mg/dl BUN (6-23) mg/dl Creatinine (0.6-1.4) mg/dl POC Creatinine (0.6-1.3) mg/dl Est Cr Clr Drug Dosing ml/min Est GFR ( Amer) ml/min Est GFR (Non-Af Amer) ml/min BUN/Creatinine Ratio (10-20) Glucose (70-99(Fasting)) mg/dl POC Glucose 141 H 165 H 294 H (70-99) mg/dl POC Glucose (other) (70-99) mg/dl Calcium (8.5-10.1) mg/dl POC Ioniz Calcium Cherie (1.12-1.32) mmol/l Phosphorus (2.5-4.9) mg/dl Magnesium (1.7-2.4) mg/dl Total Bilirubin (0.2-1.0) mg/dl AST ALT (7-52) U/L Alkaline Phosphatase (34-104) U/L Total Protein (6.0-8.3) gm/dl Albumin (3.4-5.0) gm/dl Globulin (2.5-4.0) gm/dl Albumin/Globulin Ratio (0.9-2) Lipase (11-82) U/L Procalcitonin (0-0.5) ng/ml Urine Color Urine Appearance (Clear) Urine pH (4.5-7.5) Ur Specific [place] (1.000-1.030) Urine Protein (Negative) Urine Glucose (UA) (Negative) Urine Ketones (Negative) Urine Blood (Negative) Urine Nitrite (Negative) Urine Bilirubin (Negative) Urine Urobilinogen (Negative) Ur Leukocyte Esterase (Negative) SARS-CoV-2, RNA, NAAT (NEGATIVE) 09/10/21 09/10/21 09/10/21 Range/Units 17:50 17:04 15:57 WBC (4.8-10.8) K/uL RBC (4.7-6.1) M/uL Hgb (14.0-18.0) g/dL POC Hgb (14.0-18.0) g/dl Hct (42-52) % POC Hct (42-52) % MCV (80-100) fL MCH (25-34) pg MCHC (32-36) g/dL RDW Std Deviation (36.4-46.3) fL RDW Coeff of Haily (11.5-14.5) % Plt Count (130-400) K/uL MPV (7.4-10.4) fL Immature Gran % (Auto) % Neut % (Auto) % Lymph % (Auto) % [place] % (Auto) % Eos % (Auto) % Baso % (Auto) % Neut # (Auto) (1.4-6.5) K/uL Lymph # (Auto) (1.2-3.4) K/uL [place] # (Auto) (0.11-0.59) K/uL Eos # (Auto) (0-0.5) K/uL Baso # (Auto) (0-0.2) K/uL Immature Gran # (Auto) (0.00-0.02) K/uL VBG pH (7.36-7.41) VBG pCO2 (38-50) mmHg VBG pO2 mmHg VBG HCO3 mmol/L VBG O2 Saturation % VBG Base Excess mEq/L Barometric Pressure mm/Hg POC Sodium (135-144) mmol/L Sodium 132 L D (136-145) mmol/L POC Potassium (3.3-5.0) mmol/L Potassium 4.0 D POC Chloride (101-112) mmol/L Chloride 95 L (98-107) mmol/L Carbon Dioxide 22 (21-32) mmol/L POC Total CO2 (24-31) mmol/L Anion Gap 15 H (3-11) POC Anion Gap (16-25) mmol/L POC BUN (7-18) mg/dl BUN 23 (6-23) mg/dl Creatinine 0.98 D (0.6-1.4) mg/dl POC Creatinine (0.6-1.3) mg/dl Est Cr Clr Drug Dosing 102.5 ml/min Est GFR ( Amer) 113.7 ml/min Est GFR (Non-Af Amer) 98.1 ml/min BUN/Creatinine Ratio 23.5 H (10-20) Glucose 232 H (70-99(Fasting)) mg/dl POC Glucose 339 H* 448 H* (70-99) mg/dl POC Glucose (other) (70-99) mg/dl Calcium 7.6 L D (8.5-10.1) mg/dl POC Ioniz Calcium Cherie (1.12-1.32) mmol/l Phosphorus (2.5-4.9) mg/dl Magnesium (1.7-2.4) mg/dl Total Bilirubin (0.2-1.0) mg/dl AST ALT (7-52) U/L Alkaline Phosphatase (34-104) U/L Total Protein (6.0-8.3) gm/dl Albumin (3.4-5.0) gm/dl Globulin (2.5-4.0) gm/dl Albumin/Globulin Ratio (0.9-2) Lipase (11-82) U/L Procalcitonin (0-0.5) ng/ml Urine Color Urine Appearance (Clear) Urine pH (4.5-7.5) Ur Specific [place] (1.000-1.030) Urine Protein (Negative) Urine Glucose (UA) (Negative) Urine Ketones (Negative) Urine Blood (Negative) Urine Nitrite (Negative) Urine Bilirubin (Negative) Urine Urobilinogen (Negative) Ur Leukocyte Esterase (Negative) SARS-CoV-2, RNA, NAAT (NEGATIVE) 09/10/21 09/10/21 09/10/21 Range/Units 14:58 14:58 14:58 WBC (4.8-10.8) K/uL RBC (4.7-6.1) M/uL Hgb (14.0-18.0) g/dL POC Hgb (14.0-18.0) g/dl Hct (42-52) % POC Hct (42-52) % MCV (80-100) fL MCH (25-34) pg MCHC (32-36) g/dL RDW Std Deviation (36.4-46.3) fL RDW Coeff of Haily (11.5-14.5) % Plt Count (130-400) K/uL MPV (7.4-10.4) fL Immature Gran % (Auto) % Neut % (Auto) % Lymph % (Auto) % [place] % (Auto) % Eos % (Auto) % Baso % (Auto) % Neut # (Auto) (1.4-6.5) K/uL Lymph # (Auto) (1.2-3.4) K/uL [place] # (Auto) (0.11-0.59) K/uL Eos # (Auto) (0-0.5) K/uL Baso # (Auto) (0-0.2) K/uL Immature Gran # (Auto) (0.00-0.02) K/uL VBG pH (7.36-7.41) VBG pCO2 (38-50) mmHg VBG pO2 mmHg VBG HCO3 mmol/L VBG O2 Saturation % VBG Base Excess mEq/L Barometric Pressure mm/Hg POC Sodium (135-144) mmol/L Sodium (136-145) mmol/L POC Potassium (3.3-5.0) mmol/L Potassium 5.6 H POC Chloride (101-112) mmol/L Chloride (98-107) mmol/L Carbon Dioxide (21-32) mmol/L POC Total CO2 (24-31) mmol/L Anion Gap (3-11) POC Anion Gap (16-25) mmol/L POC BUN (7-18) mg/dl BUN (6-23) mg/dl Creatinine (0.6-1.4) mg/dl POC Creatinine (0.6-1.3) mg/dl Est Cr Clr Drug Dosing ml/min Est GFR ( Amer) ml/min Est GFR (Non-Af Amer) ml/min BUN/Creatinine Ratio (10-20) Glucose (70-99(Fasting)) mg/dl POC Glucose 516 H* (70-99) mg/dl POC Glucose (other) (70-99) mg/dl Calcium (8.5-10.1) mg/dl POC Ioniz Calcium Cherie (1.12-1.32) mmol/l Phosphorus 4.1 (2.5-4.9) mg/dl Magnesium 2.0 (1.7-2.4) mg/dl Total Bilirubin (0.2-1.0) mg/dl AST 12 L ALT (7-52) U/L Alkaline Phosphatase (34-104) U/L Total Protein (6.0-8.3) gm/dl Albumin (3.4-5.0) gm/dl Globulin (2.5-4.0) gm/dl Albumin/Globulin Ratio (0.9-2) Lipase (11-82) U/L Procalcitonin (0-0.5) ng/ml Urine Color Urine Appearance (Clear) Urine pH (4.5-7.5) Ur Specific [place] (1.000-1.030) Urine Protein (Negative) Urine Glucose (UA) (Negative) Urine Ketones (Negative) Urine Blood (Negative) Urine Nitrite (Negative) Urine Bilirubin (Negative) Urine Urobilinogen (Negative) Ur Leukocyte Esterase (Negative) SARS-CoV-2, RNA, NAAT (NEGATIVE) 09/10/21 09/10/21 09/10/21 Range/Units 14:34 14:34 14:29 WBC (4.8-10.8) K/uL RBC (4.7-6.1) M/uL Hgb (14.0-18.0) g/dL POC Hgb 18.4 H (14.0-18.0) g/dl Hct (42-52) % POC Hct 54 H (42-52) % MCV (80-100) fL MCH (25-34) pg MCHC (32-36) g/dL RDW Std Deviation (36.4-46.3) fL RDW Coeff of Haily (11.5-14.5) % Plt Count (130-400) K/uL MPV (7.4-10.4) fL Immature Gran % (Auto) % Neut % (Auto) % Lymph % (Auto) % [place] % (Auto) % Eos % (Auto) % Baso % (Auto) % Neut # (Auto) (1.4-6.5) K/uL Lymph # (Auto) (1.2-3.4) K/uL [place] # (Auto) (0.11-0.59) K/uL Eos # (Auto) (0-0.5) K/uL Baso # (Auto) (0-0.2) K/uL Immature Gran # (Auto) (0.00-0.02) K/uL VBG pH (7.36-7.41) VBG pCO2 (38-50) mmHg VBG pO2 mmHg VBG HCO3 mmol/L VBG O2 Saturation % VBG Base Excess mEq/L Barometric Pressure mm/Hg POC Sodium 123 L (135-144) mmol/L Sodium (136-145) mmol/L POC Potassium 6.1 H* (3.3-5.0) mmol/L Potassium POC Chloride 91 L (101-112) mmol/L Chloride (98-107) mmol/L Carbon Dioxide (21-32) mmol/L POC Total CO2 18 L (24-31) mmol/L Anion Gap (3-11) POC Anion Gap 21.0 (16-25) mmol/L POC BUN 29 H (7-18) mg/dl BUN (6-23) mg/dl Creatinine (0.6-1.4) mg/dl POC Creatinine 1.1 (0.6-1.3) mg/dl Est Cr Clr Drug Dosing ml/min Est GFR ( Amer) ml/min Est GFR (Non-Af Amer) ml/min BUN/Creatinine Ratio (10-20) Glucose (70-99(Fasting)) mg/dl POC Glucose (70-99) mg/dl POC Glucose (other) 614 H* (70-99) mg/dl Calcium (8.5-10.1) mg/dl POC Ioniz Calcium Cherie 1.02 L (1.12-1.32) mmol/l Phosphorus (2.5-4.9) mg/dl Magnesium (1.7-2.4) mg/dl Total Bilirubin (0.2-1.0) mg/dl AST ALT (7-52) U/L Alkaline Phosphatase (34-104) U/L Total Protein (6.0-8.3) gm/dl Albumin (3.4-5.0) gm/dl Globulin (2.5-4.0) gm/dl Albumin/Globulin Ratio (0.9-2) Lipase (11-82) U/L Procalcitonin (0-0.5) ng/ml Urine Color Yellow Urine Appearance Clear (Clear) Urine pH 5.0 (4.5-7.5) Ur Specific [place] 1.032 H (1.000-1.030) Urine Protein Negative (Negative) Urine Glucose (UA) 3+ H (Negative) Urine Ketones 3+ H (Negative) Urine Blood Negative (Negative) Urine Nitrite Negative (Negative) Urine Bilirubin Negative (Negative) Urine Urobilinogen Negative (Negative) Ur Leukocyte Esterase Negative (Negative) SARS-CoV-2, RNA, NAAT NEGATIVE (NEGATIVE) 09/10/21 09/10/21 09/10/21 Range/Units 14:27 14:07 14:07 WBC 16.65 H (4.8-10.8) K/uL RBC 5.56 (4.7-6.1) M/uL Hgb 18.2 H (14.0-18.0) g/dL POC Hgb (14.0-18.0) g/dl Hct 49.2 (42-52) % POC Hct (42-52) % MCV 88.5 (80-100) fL MCH 32.7 (25-34) pg MCHC 37.0 H (32-36) g/dL RDW Std Deviation 38.7 (36.4-46.3) fL RDW Coeff of Haily 12.1 (11.5-14.5) % Plt Count 292 (130-400) K/uL MPV 11.4 H (7.4-10.4) fL Immature Gran % (Auto) 0.3 % Neut % (Auto) 88.2 % Lymph % (Auto) 7.3 % [place] % (Auto) 3.7 % Eos % (Auto) 0.4 % Baso % (Auto) 0.1 % Neut # (Auto) 14.70 H (1.4-6.5) K/uL Lymph # (Auto) 1.21 (1.2-3.4) K/uL [place] # (Auto) 0.61 H (0.11-0.59) K/uL Eos # (Auto) 0.07 (0-0.5) K/uL Baso # (Auto) 0.01 (0-0.2) K/uL Immature Gran # (Auto) 0.05 H (0.00-0.02) K/uL VBG pH 7.31 L (7.36-7.41) VBG pCO2 38 (38-50) mmHg VBG pO2 38 mmHg VBG HCO3 19 mmol/L VBG O2 Saturation 71.6 % VBG Base Excess -6.9 mEq/L Barometric Pressure 731.1 mm/Hg POC Sodium (135-144) mmol/L Sodium 122 L (136-145) mmol/L POC Potassium (3.3-5.0) mmol/L Potassium TNP POC Chloride (101-112) mmol/L Chloride 82 L (98-107) mmol/L Carbon Dioxide 18 L (21-32) mmol/L POC Total CO2 (24-31) mmol/L Anion Gap 22 H (3-11) POC Anion Gap (16-25) mmol/L POC BUN (7-18) mg/dl BUN 29 H (6-23) mg/dl Creatinine 1.47 H (0.6-1.4) mg/dl POC Creatinine (0.6-1.3) mg/dl Est Cr Clr Drug Dosing 66.7 ml/min Est GFR ( Amer) 69.6 ml/min Est GFR (Non-Af Amer) 60.1 ml/min BUN/Creatinine Ratio 19.7 (10-20) Glucose 613 H* (70-99(Fasting)) mg/dl POC Glucose (70-99) mg/dl POC Glucose (other) (70-99) mg/dl Calcium 9.6 (8.5-10.1) mg/dl POC Ioniz Calcium Cherie (1.12-1.32) mmol/l Phosphorus (2.5-4.9) mg/dl Magnesium (1.7-2.4) mg/dl Total Bilirubin 0.9 (0.2-1.0) mg/dl AST TNP ALT 25 (7-52) U/L Alkaline Phosphatase 116 H (34-104) U/L Total Protein 8.3 (6.0-8.3) gm/dl Albumin 4.4 (3.4-5.0) gm/dl Globulin 3.9 (2.5-4.0) gm/dl Albumin/Globulin Ratio 1.1 (0.9-2) Lipase 10 L (11-82) U/L Procalcitonin (0-0.5) ng/ml Urine Color Urine Appearance (Clear) Urine pH (4.5-7.5) Ur Specific [place] (1.000-1.030) Urine Protein (Negative) Urine Glucose (UA) (Negative) Urine Ketones (Negative) Urine Blood (Negative) Urine Nitrite (Negative) Urine Bilirubin (Negative) Urine Urobilinogen (Negative) Ur Leukocyte Esterase (Negative) SARS-CoV-2, RNA, NAAT (NEGATIVE) 09/10/21 Range/Units 13:52 WBC (4.8-10.8) K/uL RBC (4.7-6.1) M/uL Hgb (14.0-18.0) g/dL POC Hgb (14.0-18.0) g/dl Hct (42-52) % POC Hct (42-52) % MCV (80-100) fL MCH (25-34) pg MCHC (32-36) g/dL RDW Std Deviation (36.4-46.3) fL RDW Coeff of Haily (11.5-14.5) % Plt Count (130-400) K/uL MPV (7.4-10.4) fL Immature Gran % (Auto) % Neut % (Auto) % Lymph % (Auto) % [place] % (Auto) % Eos % (Auto) % Baso % (Auto) % Neut # (Auto) (1.4-6.5) K/uL Lymph # (Auto) (1.2-3.4) K/uL [place] # (Auto) (0.11-0.59) K/uL Eos # (Auto) (0-0.5) K/uL Baso # (Auto) (0-0.2) K/uL Immature Gran # (Auto) (0.00-0.02) K/uL VBG pH (7.36-7.41) VBG pCO2 (38-50) mmHg VBG pO2 mmHg VBG HCO3 mmol/L VBG O2 Saturation % VBG Base Excess mEq/L Barometric Pressure mm/Hg POC Sodium (135-144) mmol/L Sodium (136-145) mmol/L POC Potassium (3.3-5.0) mmol/L Potassium POC Chloride (101-112) mmol/L Chloride (98-107) mmol/L Carbon Dioxide (21-32) mmol/L POC Total CO2 (24-31) mmol/L Anion Gap (3-11) POC Anion Gap (16-25) mmol/L POC BUN (7-18) mg/dl BUN (6-23) mg/dl Creatinine (0.6-1.4) mg/dl POC Creatinine (0.6-1.3) mg/dl Est Cr Clr Drug Dosing ml/min Est GFR ( Amer) ml/min Est GFR (Non-Af Amer) ml/min BUN/Creatinine Ratio (10-20) Glucose (70-99(Fasting)) mg/dl POC Glucose > 600 H* (70-99) mg/dl POC Glucose (other) (70-99) mg/dl Calcium (8.5-10.1) mg/dl POC Ioniz Calcium Cherie (1.12-1.32) mmol/l Phosphorus (2.5-4.9) mg/dl Magnesium (1.7-2.4) mg/dl Total Bilirubin (0.2-1.0) mg/dl AST ALT (7-52) U/L Alkaline Phosphatase (34-104) U/L Total Protein (6.0-8.3) gm/dl Albumin (3.4-5.0) gm/dl Globulin (2.5-4.0) gm/dl Albumin/Globulin Ratio (0.9-2) Lipase (11-82) U/L Procalcitonin (0-0.5) ng/ml Urine Color Urine Appearance (Clear) Urine pH (4.5-7.5) Ur Specific [place] (1.000-1.030) Urine Protein (Negative) Urine Glucose (UA) (Negative) Urine Ketones (Negative) Urine Blood (Negative) Urine Nitrite (Negative) Urine Bilirubin (Negative) Urine Urobilinogen (Negative) Ur Leukocyte Esterase (Negative) SARS-CoV-2, RNA, NAAT (NEGATIVE) Medications Administered Potassium Chloride/Sodium Chloride (1/2 Nss + 20meq Kcl 1000ml) 20 meq in 1,000 mls @ 100 mls/hr IV .Q10H [facility]; Protocol Stop: 10/11/21 03:44 Last Admin: 09/11/21 03:54 Dose: 100 mls/hr Documented by: [id number] Insulin Aspart (Insulin Aspart Per Unit) 0 units SC ACHS [facility] Stop: 10/10/21 16:29 Last Admin: 09/10/21 20:42 Dose: Not Given Documented by: [id number] Admin: 09/10/21 18:21 Dose: Not Given Documented by: [id number] Insulin Aspart (Insulin Aspart Per Unit) 0 units SC TODAY@0000,0400 [facility] Stop: 10/11/21 00:00 Last Admin: 09/11/21 04:15 Dose: 6 units Documented by: [id number] Cosigned by: [id number] Admin: 09/11/21 00:02 Dose: Not Given Documented by: [id number] Lansoprazole (Lansoprazole 15 Mg Soltab) 15 mg PO BID [facility] Stop: 10/10/21 20:59 Last Admin: 09/10/21 19:55 Dose: 15 mg Documented by: [id number] Levothyroxine Sodium (Levothyroxine Sodium 150 Mcg Tablet) 150 mcg PO DAILYBB [facility] Stop: 10/11/21 06:29 Last Admin: 09/11/21 05:23 Dose: 150 mcg Documented by: [id number] Coding Level of Care Code 98909 Inpt Consult Level 3 Diagnoses Depression F32.A Uncontrolled type 1 diabetes mellitus, with long-term current use of insulin E10.65 Kaykay's thyroiditis E06.3
--- NOTE | 2021-09-11 09:40 | Hospitalist Progress Note ---
Date of Service September 11, 2021 Assessment & Plan (1) Acute hyperglycemia: Plan: -longstanding history of poorly controlled DM1 combined with recent stressors help explain his acute hyperglycemia -does not technically meet DKA criteria based on admission labs -will continue to monitor glucose, AGAP, bicarbonate, electrolytes, and EKG - so far improving -resume diet by mouth now that AGAP is closed and he is on subcutaneous insulin -saw customer service coordinator in hospital - A1C ordered to assess glycemic control since his last one was taken on 07/01/21 (10.1%) -given insurance concerns, will require assistance from care managers and appropriate outpatient follow up (2) Acute hyponatremia: Plan: -likely pseudohyponatremia secondary to hyperglycemia -currently asymptomatic -improving (3) Leukocytosis: Plan: -likely secondary to dehydration, trending down -denies signs/symptoms that raise suspicion for any obvious infectious etiology (4) Hypothyroidism: Plan: -has difficulty remembering to take Synthroid at home -continue Synthroid during admission (5) Depression: Plan: -stable -psych consult appreciated -continue citalopram Plan: FENGI: NPO status, on subcutaneous insulin, IVF with potassium supplementation Dispo: med tele full code Admission and Anticipated Discharge Date Admission Date: September 10, 2021 Supervising Physician Co-Signing Physician Notes Attending attestation Pt seen and examined in concert with Nuvia Mandel St. Dr. Murphy. In agreement with the documented findings as noted in the student/resident documentation with any exceptions or additions as noted here. Improving fatigue and malaise, jayla after eating this afternoon. Reports considerable stressors including relationship change, insurance change, income stress and failing automobile which has contributed to his being unable to engage in his own care jayla picking up his sensors for his glucometer which were ready 5 days [employer]. VS reviewed. On examination, S1/S2 nl RRR no MCG. CTAB. Abd NT/ND BS+ve Hyperglycemia in the setting of type 1 DM s/p insulin drip - transitioned to subcutaneous basal/bolus - A1c pending, continue lab monitoring daily. Depression - psych consult - continue citalopram. Concerning re: impact of uncontrolled MDD on DM management Hyponatremia - improved when corrected Leukocytosis - trending down, continue to monitor CBC Else see resident documentation as noted. Tonny Montano is a 36 y/o with PMHx of DM1 for the past 11 years (4 hospitalizations in past year related to diabetes complications), MATTIE on 04/29/21, depression, and hypothyroidism who presented to the ED on the evening of 09/10/21 with concerns about high blood sugar, nausea, and vomiting. His last A1C was 10.1% on 07/01/21. At home he takes Lantus 25U with a correction factor of 35 (1:10 to 1:12 carb ratio). In the ED he was afebrile with stable vitals with the exception of tachycardia @ 108 bpm; he had dry mucous membranes. Workup showed: -glucose 613 -AGAP 22 -HCO3 low at 18 -UA w/ ketones -Na 122; 134 when corrected for hyperglycemia -potassium = 6.1 -VBG w/ pH = 7.3 -Cr = 1.4 -WBC 16.65 In the ED he was given 3L of IVF with 0.01 units/kg/hr of insulin drip + bolus. Also given Plasma-lyte. His EKG showed NSR, nonspecific ST abnormalities, and possible left atrial enlargement. 2300 hour labs on 09/10 showed: glucose dropped to 93, HCO3 26, AGAP 8, potassium 3.9. At the time the insulin drip was continued at 80% Lantus dose, and dextrose fluids were continued at 100 cc/hr. 0300 hour labs on 09/11 showed: glucose 281, AGAP 11, potassium 4.6, Na 129, WBC 129 Today 09/11: Dusty is lying in bed, stating that he is tired and eager to resume diet by mouth if possible. Otherwise, he denies medical concerns such as fever, cough, chest pain, SOB, COX, confusion, and vision changes. He attributes stress as the primary trigger of poorly controlled glucose levels that resulted in his current hospital admission. He is worried about his insurance coverage because he and his spouse broke up, and he received coverage through her job. He does hold a job of his own but states his job's insurance has poor coverage. In particular he is eager to be on the Dexcom again but states it's not covered. He sees his endocrinology ~q3 months. He has now converted to subcutaneous insulin with IVF (03/31 NSS + 20 meQ of KCl) Review of Systems Review of Systems: All systems reviewed & are unremarkable except as noted in HPI & below Physical Exam ENMT: external ear and nose normal, oropharynx normal (mucous membranes moist) Respiratory: normal respiratory effort, lungs clear to auscultation Cardiovascular: RRR, no murmur, no edema Neurologic: A&OX3, no confusion/headache, no palate deviation Psychiatric: tired appearing, no psychomotor slowing, thought process linear, insight and judgment appropriate Results & Data Results & Data ([facility]) Vital Signs (Past 12 Hours) Vital Signs Temp Pulse Pulse Resp BP Pulse Ox 09/11/21 07:29 36.6 C 67 17 113/63 96 09/11/21 02:52 36.7 C 68 20 116/79 98 09/10/21 23:12 68 09/10/21 22:44 36.7 C 81 20 104/57 L 96 Laboratory Results Abnormal lab results 09/10/21 09/10/21 09/10/21 Range/Units 13:52 14:07 14:07 WBC 16.65 H (4.8-10.8) K/uL RBC (4.7-6.1) M/uL Hgb 18.2 H (14.0-18.0) g/dL POC Hgb (14.0-18.0) g/dl Hct (42-52) % POC Hct (42-52) % MCHC 37.0 H (32-36) g/dL MPV 11.4 H (7.4-10.4) fL Neut # (Auto) 14.70 H (1.4-6.5) K/uL [place] # (Auto) 0.61 H (0.11-0.59) K/uL Immature Gran # (Auto) 0.05 H (0.00-0.02) K/uL VBG pH (7.36-7.41) POC Sodium (135-144) mmol/L Sodium 122 L (136-145) mmol/L POC Potassium (3.3-5.0) mmol/L Potassium (3.5-5.1) mmol/L POC Chloride (101-112) mmol/L Chloride 82 L (98-107) mmol/L Carbon Dioxide 18 L (21-32) mmol/L POC Total CO2 (24-31) mmol/L Anion Gap 22 H (3-11) POC BUN (7-18) mg/dl BUN 29 H (6-23) mg/dl Creatinine 1.47 H (0.6-1.4) mg/dl BUN/Creatinine Ratio (10-20) Glucose 613 H* (70-99(Fasting)) mg/dl POC Glucose > 600 H* (70-99) mg/dl POC Glucose (other) (70-99) mg/dl Calcium (8.5-10.1) mg/dl POC Ioniz Calcium [place] (1.12-1.32) mmol/l AST (13-39) U/L Alkaline Phosphatase 116 H (34-104) U/L Lipase 10 L (11-82) U/L Procalcitonin (0-0.5) ng/ml Ur Specific [place] (1.000-1.030) Urine Glucose (UA) (Negative) Urine Ketones (Negative) 09/10/21 09/10/21 09/10/21 Range/Units 14:27 14:29 14:34 WBC (4.8-10.8) K/uL RBC (4.7-6.1) M/uL Hgb (14.0-18.0) g/dL POC Hgb 18.4 H (14.0-18.0) g/dl Hct (42-52) % POC Hct 54 H (42-52) % MCHC (32-36) g/dL MPV (7.4-10.4) fL Neut # (Auto) (1.4-6.5) K/uL [place] # (Auto) (0.11-0.59) K/uL Immature Gran # (Auto) (0.00-0.02) K/uL VBG pH 7.31 L (7.36-7.41) POC Sodium 123 L (135-144) mmol/L Sodium (136-145) mmol/L POC Potassium 6.1 H* (3.3-5.0) mmol/L Potassium (3.5-5.1) mmol/L POC Chloride 91 L (101-112) mmol/L Chloride (98-107) mmol/L Carbon Dioxide (21-32) mmol/L POC Total CO2 18 L (24-31) mmol/L Anion Gap (3-11) POC BUN 29 H (7-18) mg/dl BUN (6-23) mg/dl Creatinine (0.6-1.4) mg/dl BUN/Creatinine Ratio (10-20) Glucose (70-99(Fasting)) mg/dl POC Glucose (70-99) mg/dl POC Glucose (other) 614 H* (70-99) mg/dl Calcium (8.5-10.1) mg/dl POC Ioniz Calcium [place] 1.02 L (1.12-1.32) mmol/l AST (13-39) U/L Alkaline Phosphatase (34-104) U/L Lipase (11-82) U/L Procalcitonin (0-0.5) ng/ml Ur Specific [place] 1.032 H (1.000-1.030) Urine Glucose (UA) 3+ H (Negative) Urine Ketones 3+ H (Negative) 09/10/21 09/10/21 09/10/21 Range/Units 14:58 14:58 15:57 WBC (4.8-10.8) K/uL RBC (4.7-6.1) M/uL Hgb (14.0-18.0) g/dL POC Hgb (14.0-18.0) g/dl Hct (42-52) % POC Hct (42-52) % MCHC (32-36) g/dL MPV (7.4-10.4) fL Neut # (Auto) (1.4-6.5) K/uL [place] # (Auto) (0.11-0.59) K/uL Immature Gran # (Auto) (0.00-0.02) K/uL VBG pH (7.36-7.41) POC Sodium (135-144) mmol/L Sodium (136-145) mmol/L POC Potassium (3.3-5.0) mmol/L Potassium 5.6 H (3.5-5.1) mmol/L POC Chloride (101-112) mmol/L Chloride (98-107) mmol/L Carbon Dioxide (21-32) mmol/L POC Total CO2 (24-31) mmol/L Anion Gap (3-11) POC BUN (7-18) mg/dl BUN (6-23) mg/dl Creatinine (0.6-1.4) mg/dl BUN/Creatinine Ratio (10-20) Glucose (70-99(Fasting)) mg/dl POC Glucose 516 H* 448 H* (70-99) mg/dl POC Glucose (other) (70-99) mg/dl Calcium (8.5-10.1) mg/dl POC Ioniz Calcium [place] (1.12-1.32) mmol/l AST 12 L (13-39) U/L Alkaline Phosphatase (34-104) U/L Lipase (11-82) U/L Procalcitonin (0-0.5) ng/ml Ur Specific [place] (1.000-1.030) Urine Glucose (UA) (Negative) Urine Ketones (Negative) 09/10/21 09/10/21 09/10/21 Range/Units 17:04 17:50 18:14 WBC (4.8-10.8) K/uL RBC (4.7-6.1) M/uL Hgb (14.0-18.0) g/dL POC Hgb (14.0-18.0) g/dl Hct (42-52) % POC Hct (42-52) % MCHC (32-36) g/dL MPV (7.4-10.4) fL Neut # (Auto) (1.4-6.5) K/uL [place] # (Auto) (0.11-0.59) K/uL Immature Gran # (Auto) (0.00-0.02) K/uL VBG pH (7.36-7.41) POC Sodium (135-144) mmol/L Sodium 132 L D (136-145) mmol/L POC Potassium (3.3-5.0) mmol/L Potassium (3.5-5.1) mmol/L POC Chloride (101-112) mmol/L Chloride 95 L (98-107) mmol/L Carbon Dioxide (21-32) mmol/L POC Total CO2 (24-31) mmol/L Anion Gap 15 H (3-11) POC BUN (7-18) mg/dl BUN (6-23) mg/dl Creatinine (0.6-1.4) mg/dl BUN/Creatinine Ratio 23.5 H (10-20) Glucose 232 H (70-99(Fasting)) mg/dl POC Glucose 339 H* 294 H (70-99) mg/dl POC Glucose (other) (70-99) mg/dl Calcium 7.6 L D (8.5-10.1) mg/dl POC Ioniz Calcium [place] (1.12-1.32) mmol/l AST (13-39) U/L Alkaline Phosphatase (34-104) U/L Lipase (11-82) U/L Procalcitonin (0-0.5) ng/ml Ur Specific [place] (1.000-1.030) Urine Glucose (UA) (Negative) Urine Ketones (Negative) 09/10/21 09/10/21 09/10/21 Range/Units 19:14 20:12 21:12 WBC (4.8-10.8) K/uL RBC (4.7-6.1) M/uL Hgb (14.0-18.0) g/dL POC Hgb (14.0-18.0) g/dl Hct (42-52) % POC Hct (42-52) % MCHC (32-36) g/dL MPV (7.4-10.4) fL Neut # (Auto) (1.4-6.5) K/uL [place] # (Auto) (0.11-0.59) K/uL Immature Gran # (Auto) (0.00-0.02) K/uL VBG pH (7.36-7.41) POC Sodium (135-144) mmol/L Sodium (136-145) mmol/L POC Potassium (3.3-5.0) mmol/L Potassium (3.5-5.1) mmol/L POC Chloride (101-112) mmol/L Chloride (98-107) mmol/L Carbon Dioxide (21-32) mmol/L POC Total CO2 (24-31) mmol/L Anion Gap (3-11) POC BUN (7-18) mg/dl BUN (6-23) mg/dl Creatinine (0.6-1.4) mg/dl BUN/Creatinine Ratio (10-20) Glucose (70-99(Fasting)) mg/dl POC Glucose 165 H 141 H 120 H (70-99) mg/dl POC Glucose (other) (70-99) mg/dl Calcium (8.5-10.1) mg/dl POC Ioniz Calcium [place] (1.12-1.32) mmol/l AST (13-39) U/L Alkaline Phosphatase (34-104) U/L Lipase (11-82) U/L Procalcitonin (0-0.5) ng/ml Ur Specific [place] (1.000-1.030) Urine Glucose (UA) (Negative) Urine Ketones (Negative) 09/10/21 09/10/21 09/10/21 Range/Units 22:10 22:47 22:47 WBC (4.8-10.8) K/uL RBC (4.7-6.1) M/uL Hgb (14.0-18.0) g/dL POC Hgb (14.0-18.0) g/dl Hct (42-52) % POC Hct (42-52) % MCHC (32-36) g/dL MPV (7.4-10.4) fL Neut # (Auto) (1.4-6.5) K/uL [place] # (Auto) (0.11-0.59) K/uL Immature Gran # (Auto) (0.00-0.02) K/uL VBG pH (7.36-7.41) POC Sodium (135-144) mmol/L Sodium 132 L (136-145) mmol/L POC Potassium (3.3-5.0) mmol/L Potassium (3.5-5.1) mmol/L POC Chloride (101-112) mmol/L Chloride (98-107) mmol/L Carbon Dioxide (21-32) mmol/L POC Total CO2 (24-31) mmol/L Anion Gap (3-11) POC BUN (7-18) mg/dl BUN (6-23) mg/dl Creatinine (0.6-1.4) mg/dl BUN/Creatinine Ratio 22.8 H (10-20) Glucose (70-99(Fasting)) mg/dl POC Glucose 104 H (70-99) mg/dl POC Glucose (other) (70-99) mg/dl Calcium (8.5-10.1) mg/dl POC Ioniz Calcium [place] (1.12-1.32) mmol/l AST (13-39) U/L Alkaline Phosphatase (34-104) U/L Lipase (11-82) U/L Procalcitonin 0.52 H (0-0.5) ng/ml Ur Specific [place] (1.000-1.030) Urine Glucose (UA) (Negative) Urine Ketones (Negative) 09/10/21 09/11/21 09/11/21 Range/Units 23:32 02:57 02:57 WBC 12.61 H (4.8-10.8) K/uL RBC 4.45 L (4.7-6.1) M/uL Hgb (14.0-18.0) g/dL POC Hgb (14.0-18.0) g/dl Hct 38.7 L (42-52) % POC Hct (42-52) % MCHC 37.0 H (32-36) g/dL MPV 10.5 H (7.4-10.4) fL Neut # (Auto) 9.06 H (1.4-6.5) K/uL [place] # (Auto) 0.87 H (0.11-0.59) K/uL Immature Gran # (Auto) (0.00-0.02) K/uL VBG pH (7.36-7.41) POC Sodium (135-144) mmol/L Sodium 129 L (136-145) mmol/L POC Potassium (3.3-5.0) mmol/L Potassium (3.5-5.1) mmol/L POC Chloride (101-112) mmol/L Chloride 96 L (98-107) mmol/L Carbon Dioxide (21-32) mmol/L POC Total CO2 (24-31) mmol/L Anion Gap (3-11) POC BUN (7-18) mg/dl BUN 24 H (6-23) mg/dl Creatinine (0.6-1.4) mg/dl BUN/Creatinine Ratio 24.0 H (10-20) Glucose 281 H (70-99(Fasting)) mg/dl POC Glucose 112 H (70-99) mg/dl POC Glucose (other) (70-99) mg/dl Calcium 7.9 L (8.5-10.1) mg/dl POC Ioniz Calcium [place] (1.12-1.32) mmol/l AST (13-39) U/L Alkaline Phosphatase (34-104) U/L Lipase (11-82) U/L Procalcitonin (0-0.5) ng/ml Ur Specific [place] (1.000-1.030) Urine Glucose (UA) (Negative) Urine Ketones (Negative) 09/11/21 09/11/21 Range/Units 03:19 07:26 WBC (4.8-10.8) K/uL RBC (4.7-6.1) M/uL Hgb (14.0-18.0) g/dL POC Hgb (14.0-18.0) g/dl Hct (42-52) % POC Hct (42-52) % MCHC (32-36) g/dL MPV (7.4-10.4) fL Neut # (Auto) (1.4-6.5) K/uL [place] # (Auto) (0.11-0.59) K/uL Immature Gran # (Auto) (0.00-0.02) K/uL VBG pH (7.36-7.41) POC Sodium (135-144) mmol/L Sodium (136-145) mmol/L POC Potassium (3.3-5.0) mmol/L Potassium (3.5-5.1) mmol/L POC Chloride (101-112) mmol/L Chloride (98-107) mmol/L Carbon Dioxide (21-32) mmol/L POC Total CO2 (24-31) mmol/L Anion Gap (3-11) POC BUN (7-18) mg/dl BUN (6-23) mg/dl Creatinine (0.6-1.4) mg/dl BUN/Creatinine Ratio (10-20) Glucose (70-99(Fasting)) mg/dl POC Glucose 269 H 227 H (70-99) mg/dl POC Glucose (other) (70-99) mg/dl Calcium (8.5-10.1) mg/dl POC Ioniz Calcium [place] (1.12-1.32) mmol/l AST (13-39) U/L Alkaline Phosphatase (34-104) U/L Lipase (11-82) U/L Procalcitonin (0-0.5) ng/ml Ur Specific [place] (1.000-1.030) Urine Glucose (UA) (Negative) Urine Ketones (Negative) Diagnostic Findings CXR no active disease in chest EKG 09/10/21 @ 16:21: Normal sinus rhythm Possible Left atrial enlargement Nonspecific ST abnormality Abnormal ECG No previous ECGs available Medications Administered Current Inpatient Medications Acetaminophen (Acetaminophen 325 Mg Tab) 650 mg PO Q4H PRN PRN Reason: Pain or Fever Stop: 10/10/21 18:12 Citalopram Hydrobromide (Citalopram 20 Mg Tab) 20 mg PO DAILY [facility]UL[facility] Stop: 10/11/21 08:59 Last Admin: 09/11/21 07:55 Dose: 20 mg Documented by: Dextrose (Dextrose 50% 50 Ml Syringe) 25 - 50 ml IV UD PRN; Protocol PRN Reason: Hypoglycemia Protocol Stop: 10/10/21 14:34 Glucagon (Glucagon For Inj 1 Mg Vial) 1 mg SQ UD PRN; Protocol PRN Reason: Hypoglycemia Protocol Stop: 10/10/21 14:34 Glucose (Glucose 10 Tabs/Tube) 4 - 8 tabs PO UD PRN; Protocol PRN Reason: Hypoglycemia Protocol Stop: 10/10/21 14:34 Glucose (Glucose 40% Gel 15 Gm Tube) 15 - 30 gm PO UD PRN; Protocol PRN Reason: Hypoglycemia Protocol Stop: 10/10/21 14:34 Potassium Chloride/Sodium Chloride (1/2 Nss + 20meq Kcl 1000ml) 20 meq in 1,000 mls @ 100 mls/hr IV .Q10H [facility]UL[facility]; Protocol Stop: 10/11/21 03:44 Last Admin: 09/11/21 03:54 Dose: 100 mls/hr Documented by: Insulin Aspart (Insulin Aspart Per Unit) 0 units SC ACHS [facility] Stop: 10/10/21 16:29 Last Admin: 09/11/21 07:54 Dose: 4 units Documented by: Insulin Aspart (Insulin Aspart Per Unit) 0 units SC TODAY@0000,0400 [facility] Stop: 10/11/21 00:00 Last Admin: 09/11/21 04:15 Dose: 6 units Documented by: Lansoprazole (Lansoprazole 15 Mg Soltab) 15 mg PO BID [facility] Stop: 10/10/21 20:59 Last Admin: 09/11/21 07:55 Dose: 15 mg Documented by: Levothyroxine Sodium (Levothyroxine Sodium 150 Mcg Tablet) 150 mcg PO DAILYBB [facility] Stop: 10/11/21 06:29 Last Admin: 09/11/21 05:23 Dose: 150 mcg Documented by: Miscellaneous (Carbohydrates For Hypoglycemia ) 15 - 30 gm PO UD PRN PRN Reason: Hypoglycemia Protocol Stop: 10/10/21 14:34 Miscellaneous Information (Pharmacy Glycemic Mgmt Consult) 1 ea N/A UD PRN PRN Reason: Consult Stop: 10/10/21 18:12 Ondansetron HCl (Ondansetron Inj 2 Mg/Ml 2 Ml Vial) 4 mg IV Q6H PRN PRN Reason: Nausea Stop: 10/10/21 18:12
--- NOTE | 2021-09-11 11:58 | Electrocardiogram Report ---
Test Reason : Blood Pressure : / mmHG Vent. Rate : 067 BPM Atrial Rate : 067 BPM P-R Int : 114 ms QRS Dur : 086 ms QT Int : 446 ms P-R-T Axes : -89 044 051 degrees QTc Int : 471 ms Junctional rhythm Abnormal ECG When compared with ECG of 10-SEP-2021 16:21, Junctional rhythm has replaced Sinus rhythm Confirmed by Jose Miguel Slaughter ([id number]) on 09/11/2021 11:58:01 AM Referred By: REFERRED SELF Confirmed By:Yousif Slaughter
--- NOTE | 2021-09-11 12:28 | Pharmacy Report ---
Pharmacy Glycemic Short Note 2 - Date of Service September 11, 2021 - Glycemic Short BSG Results (Last 24 hours): 09/10/21 09/10/21 09/10/21 13:52 14:07 14:29 Glucose 613 H* POC Glucose > 600 H* POC Glucose (other) 614 H* 09/10/21 09/10/21 09/10/21 14:58 15:57 17:04 Glucose POC Glucose 516 H* 448 H* 339 H* POC Glucose (other) 09/10/21 09/10/21 09/10/21 17:50 18:14 19:14 Glucose 232 H POC Glucose 294 H 165 H POC Glucose (other) 09/10/21 09/10/21 09/10/21 20:12 21:12 22:10 Glucose POC Glucose 141 H 120 H 104 H POC Glucose (other) 09/10/21 09/10/21 09/11/21 22:47 23:32 02:57 Glucose 93 281 H POC Glucose 112 H POC Glucose (other) 09/11/21 09/11/21 09/11/21 03:19 07:26 11:28 Glucose POC Glucose 269 H 227 H 184 H POC Glucose (other) OUTPATIENT ANTIDIABETIC REGIMEN: * Lantus 25 units daily * Novolog CF 35 CR 01/08 ASSESSMENT: * Mr Saul is a T1DM who presents with DKA. Patient was initially on insulin infusion and this was transitioned off around midnight. Patient received 20 units of Lantus yesterday evening. * BSGs after insulin infusion and today were 227-184 mg/dL. * Gave Lantus 5 units this morning to equal home dose of 25 units. For transition back to once daily dosing, give 20 units with dinner tonight then 25 units daily starting 09/12/21. * Novolog similar to home dose. PLAN FOR INPATIENT GLYCEMIC CONTROL: * Hold outpatient oral diabetes medications * Basal insulin * Lantus 20 units SQ with dinner tonight then transition to 25 units daily * Bolus insulin * NovoLog per scale ACHS or Q6hrs while NPO * Goal Range: Low 110 mg/dL - High 140 mg/dL * Correction Factor: 30 mg/dL/unit * Nutritional / Prandial insulin per carb ratio of 1 unit per 10 grams CHO consumed
[2021-09-11 12:35] LABS: BUN Creatinine Ratio 23.7 (10-20); Calcium 8.6 mg/dl (8.5-10.1); Creatinine Clr Calc Pharmacy 99.5 ml/min; Est GFR (African American) 115.1 ml/min; Est GFR (Non-African American) 99.3 ml/min; Potassium 4.6 mmol/L (3.5-5.1)
[2021-09-11 13:03] LABS: Estimated Average Glucose 315 mg/dl; Hemoglobin A1C 12.6 % (4.5-5.6)
[2021-09-12] MEDS: LEVOTHYROXINE SODIUM 150 MCG TABLET PO SCH (05:48)
[2021-09-12 06:36] LABS: Basophils # (auto) 0.01 K/uL (0-0.2); Basophils % (auto) 0.1 %; Eosinophils # (auto) 0.28 K/uL (0-0.5); Eosinophils % (auto) 3.1 %; Hematocrit (blood only) 37.3 % (42-52); Hemoglobin 13.3 g/dL (14.0-18.0); Immature Granulocytes # (auto) 0.02 K/uL (0.00-0.02); Immature Granulocytes % (auto) 0.2 %; Lymphocytes # (auto) 1.68 K/uL (1.2-3.4); Lymphocytes % (auto) 18.9 %; Mean Corpuscular Hemoglobin 30.9 pg (25-34); Mean Corpuscular Hgb Conc 35.7 g/dL (32-36); Mean Corpuscular Volume 86.7 fL (80-100); Mean Platelet Volume 10.7 fL (7.4-10.4); Monocytes # (auto) 0.88 K/uL (0.11-0.59); Monocytes % (auto) 9.9 %; Neutrophils # (auto) 6.03 K/uL (1.4-6.5); Neutrophils % (auto) 67.8 %; Platelet Count 199 K/uL (130-400); RDW Coefficient of Variation 12.4 % (11.5-14.5); RDW Standard Deviation 39.1 fL (36.4-46.3)
[2021-09-12 07:35] LABS: BUN Creatinine Ratio 20.4 (10-20); Creatinine Clr Calc Pharmacy 98.8 ml/min; Est GFR (African American) 113.7 ml/min; Est GFR (Non-African American) 98.1 ml/min; Potassium 3.4 mmol/L (3.5-5.1)
[2021-09-12] MEDS ORDERED: POTASSIUM CHLORIDE CRTAB 20 MEQ TABCR PO STA (08:00)
[2021-09-12] MEDS: INSULIN ASPART PER UNIT SC SCH ×2 (08:06→12:02)
[2021-09-12] MEDS: CITALOPRAM 20 MG TAB PO SCH (08:07)
[2021-09-12] MEDS: LANSOPRAZOLE 15 MG SOLTAB PO SCH (08:07)
[2021-09-12] MEDS ORDERED: INSULIN GLARGINE SOLOSTAR 100 UNITS/ML 3 ML PEN SC SCH (09:00)
--- NOTE | 2021-09-12 12:45 | Discharge Summary ---
Date of Service September 12, 2021 Admission HPI Per Admitting Provider 36 YOM with medical history of hypothyroidism, DM I age of onset ~10, Depression. Patient comes to the EMD today accompanied by his mother for complaints of hyperglycemia, inability to eat and nausea. He was noted to be hyperglycemic in the EMD to 660 with HC03 of 18 and PH of 7.31. Patient is on basal bolus insulin at home and uses a Dexcom, however socially he is on his 's insurance and they are currently getting . He states that he has not gotten his supplies or able to keep up with his insulin secondary to this. He is also not taking his synthroid. He is overwhelmed and appears to be quite depressed but feels safe, he is also open to getting a support system or someone to be able to talk with him through this. He is open to psychiatric consultation while in house, if they would be able to assist. Overall he is in mild DKA with gap of 22 HCO3 at 18 and PH 7.31 compensated. He has no abdominal pain and his lipase is normal. Either way he will need volume replaced, insulin drip and electrolytes followed closely. Will, continue his insulin infusion at 0.01 units/kg, admit to PCU, BMP q6 hours, and replace electrolytes as needed. COVID test on admission is: NEGATIVE Discharge Data Consultations 09/10/21 15:01 ED Decision to Admit Stat 09/10/21 18:13 Consult Psychiatry Routine Hospital Course (1) Acute hyperglycemia: -longstanding history of poorly controlled DM1 combined with recent stressors, poor compliance help explain his acute hyperglycemia -A1C up from 10.1% in June 2021 to 12.6%. Saw hospice educator in hospital Shilo insulin: Lantus 25 units daily Bolus insulin: Goal Range: Low 110 mg/dL - High 140 mg/dL Correction Factor: 30 mg/dL/unit Nutritional / Prandial insulin per carb ratio of 1 unit per 10 grams CHO consumed -tolerating diet by mouth without concerns -case management input much appreciated: has concerns with paying utilities, insurance coverage -will require strict outpatient follow up (2) Acute hyponatremia: -likely pseudohyponatremia secondary to hyperglycemia -largely resolved and asymptomatic -when corrected for glucose, most recent sodium is 133 (3) Leukocytosis: -resolved, low likelihood of underlying infection -likely was due to hypovolemia (4) Hypothyroidism: -has difficulty taking take Synthroid at home -continue Synthroid during admission (5) Depression: -stable -psych consult appreciated (6) Prolonged QT interval: -EKG on morning of 09/12 showed prolonged QT at 552 -repeat EKG ordered FENGI: DM diet w/ insulin parameters as above Dispo: med tele full code
--- NOTE | 2021-09-12 12:58 | Discharge Summary ---
Date of Service September 12, 2021 Admission HPI Per Admitting Provider 36 YOM with medical history of hypothyroidism, DM I age of onset ~10, Depression. Patient comes to the EMD today accompanied by his mother for complaints of hyperglycemia, inability to eat and nausea. He was noted to be hyperglycemic in the EMD to 660 with HC03 of 18 and PH of 7.31. Patient is on basal bolus insulin at home and uses a Dexcom, however socially he is on his 's insurance and they are currently getting . He states that he has not gotten his supplies or able to keep up with his insulin secondary to this. He is also not taking his synthroid. He is overwhelmed and appears to be quite depressed but feels safe, he is also open to getting a support system or someone to be able to talk with him through this. He is open to psychiatric consultation while in house, if they would be able to assist. Overall he is in mild DKA with gap of 22 HCO3 at 18 and PH 7.31 compensated. He has no abdominal pain and his lipase is normal. Either way he will need volume replaced, insulin drip and electrolytes followed closely. Will, continue his insulin infusion at 0.01 units/kg, admit to PCU, [facility] q6 hours, and replace electrolytes as needed. COVID test on admission is: NEGATIVE Admission Exam Per Admitting Provider PHYSICAL EXAM: General: awake, alert, no apparent distress Head: Normocephalic, atraumatic ENT: PERRL, EOMI, no pharyngeal exudate, mucous membranes dry Neuro: AAO x 3, speech clear and appropriate, strength intact bilaterally 5/5, sensation intact and equal all extremities and dermatomes, no pronator drift Chest: equal rise and fall of the chest, no accessory muscle use, no heaves or thrills, Clear to auscultation, on room air, Cardiac: Regular rate and rhythm, telemetry reviewed, skin warm dry, cap refill <3 seconds, peripheral pulses +2 no JVD, no murmur, no edema GI: NABS x 4 quadrants, soft, nontender to palpation, no rebound, guarding or tenderness : Spontaneously voiding, no pain, no CVA tenderness, Extremities: Normal inspection, no peripheral edema or erythema, calfs nontender to palpation Psych: Normal mood and affect Skin: no rash or erythema Principal Diagnosis hyperglycemia Discharge Exam Constitutional WD/WN, vitals as above Respiratory normal respiratory effort, lungs clear to auscultation no conversational dyspnea Cardiovascular RRR, no murmur, no edema no LE edema, redness, pain Neurologic A&OX3 Psychiatric Eye Contact: good eye contact Motor Behavior: no abnormal motor movements Speech: normal rate/rhythm/volume of speech Affect: mood congruent with affect Discharge Data Allergies Allergy/AdvReac Type Severity Reaction Status Date / Time amoxicillin Allergy Intermediate Hives Verified 09/10/21 15:47 Consultations 09/10/21 15:01 ED Decision to Admit Stat 09/10/21 18:13 Consult Psychiatry Routine Hospital Course (1) Acute hyperglycemia: -explained by suboptimal dietary/insulin control (A1C up from 10.1% in June 2021 to 12.6%) -Saw electrical engineering designer in hospital [facility] insulin: Lantus 25 units daily Bolus insulin: Goal Range: Low 110 mg/dL - High 140 mg/dL Correction Factor: 30 mg/dL/unit Nutritional / Prandial insulin per carb ratio of 1 unit per 10 grams CHO consumed -tolerating diet by mouth without concerns -case management input much appreciated: has concerns with paying utilities, insurance coverage -will require strict outpatient follow up (2) Acute hyponatremia: -asymptomatic pseudohyponatremia secondary to hyperglycemia -when corrected for glucose, most recent sodium is 133 (3) Leukocytosis: -resolved, low likelihood of underlying infection -likely due to hypovolemia (4) Hypothyroidism: -stable, continue Synthroid (5) Depression: -stable -psych consult appreciated, continue citalopram (6) Prolonged QT interval: -EKG on morning of 09/12 showed prolonged QT at 552, but resolved on repeat EKG -will require PCP follow up after restarting citalopram FENGI: DM diet w/ insulin parameters as above Dispo: med tele full code Total Time Total Time Spent Total Time Spent (In Minutes): see attending attestation Discharge Plan Discharge Items Patient Disposition: Home - Self-Care Reason For Visit: HYPERGLYCEMIA DKA Discharge Diagnosis: Diabetic ketoacidosis Activity: Resume your previous activity Non-emergency contact: Primary Care Provider Call non-emergency contact if: you have any medication questions, your symptoms worsen and your pain is worsening Follow-up/Referrals: Ned Day CRNP [Primary Care Provider] - Francy,PASCUAL Martinez, CDE [Nurse Practitioner] - Diet: Carb Count or DM1 Addtl Attending Provider Instructions: You were admitted to the hospital for diabetic ketoacidosis, resulting from excessively high blood sugars due to carbohydrate-insulin mismatch. This typically occurs when there isn't enough insulin taken to cover for the amount of carbohydrates consumed, which elevates blood sugar. The obrien to improving your diabetes is regularly monitoring your blood sugars and giving the right number of insulin units to cover for your meals. Until your follow-up at the clinic, please take Lantus 25 units daily. This is your long-acting insulin. You can take it at any time of the day but it is important to take it every day at the same time. Novolog is your short-acting insulin which you use with meals. Please take 1 unit of insulin for every 10 grams of carbohydrates per meal. If your blood sugar is still elevated, you can correct it with 1 unit of insulin reducing blood sugar by about 35 units. A discharge summary will be sent to your primary care physician to ensure continuity of care. Please bring this discharge summary with you to your next office appointment so that your provider can review it at that time. Follow-up appointments: We have requested a follow-up appointment with your primary care provider as well as sub arc operator. They should reach out to schedule an appointment soon. Please call the hospital if you do not hear from them within a week. We have also requested a follow up at the [facility] clinic next to the hospital. You have an appointment scheduled with Dr. Negron at [address], [address] at 3:10 PM on Saturday 09/16. Medications: Your medication list has been reviewed and reconciled upon discharge to ensure accuracy and continuity of care. An updated list of all your medications is included with your hospital discharge paperwork. Please review this list closely, and make note of any changes. Take your medications as instructed; do not skip a dose of your medicines. Make sure all of your doctors know every medicine you are taking (including gopm-tqm-jubnrep medicines, vitamins, and supplements). Call your primary care provider before taking any new medicines (including pgfj-ykn-[id number] medicines, vitamins, and supplements), because some of these may interact with your current medications, or may make your symptoms worse. Tell your primary care provider if you cannot afford your medications. CONTACT YOUR PRIMARY CARE PROVIDER if you experience any of the following: Abdominal pain, nausea, vomiting Fever Increased urination Lightheadedness Elevated blood sugar readings Difficulty following your treatment plan, or difficulty taking medications CALL 911 OR GO TO THE EMERGENCY DEPARTMENT if you experience any of the following: Sudden, severe abdominal pain or nausea/vomiting Severe chest pain, or chest pain that radiates (moves) to your jaw or arm Sudden, severe shortness of breath or difficulty breathing Thank you for allowing us to participate in your care. Pending Studies at Discharge: No Stand-Alone Forms: My [facility] Shopping Buddy, Work/School Release Medications and DC Order Prescriptions: Continued citalopram 20 mg tablet 20 mg PO DAILY Qty: 30 RF: 2 (DME) Embrace PRO test strips Strip See Rx Instructions .Route RF: 0 (DME) insulin syringe-needle U-100 [BD Insulin Syringe Ultra-Fine] 0.5 mL 31 gauge x 5/16" syringe See Rx Instructions .ROUTE .MEDSUPPLY Qty: 10 RF: 0 levothyroxine 150 mcg tablet 150 mcg PO DAILY Qty: 30 RF: 5 Lantus U-100 Insulin 100 unit/mL solution 25 unit SQ DAILY Qty: 20 RF: 3 insulin aspart U-100 [Novolog Flexpen U-100 Insulin] 100 unit/mL (3 mL) insulin pen 0 unit subcut TIDM RF: 0 Discharge Orders: Discharge Order (Routine); Ordered 09/12/21 Ordered By: Jo Pedersen Admission Data Admit Date/Time: 09/10/21 15:15 Attending Provider: Mariusz Alfonso Admit Provider: Duane Pearce Primary Care Provider: Ned Day Other Providers: Duane Pearce ; Kerrie Pacheco ; Josefa Franco ; Chely Zelaya
--- NOTE | 2021-09-12 18:20 | Electrocardiogram Report ---
Test Reason : Blood Pressure : / mmHG Vent. Rate : 060 BPM Atrial Rate : 060 BPM P-R Int : 092 ms QRS Dur : 090 ms QT Int : 552 ms P-R-T Axes : 267 039 020 degrees QTc Int : 552 ms Unusual P axis and short TN, probable junctional rhythm vs ectopic atrial rhythm Nonspecific T wave abnormality Prolonged QT Abnormal ECG When compared with ECG of 11-SEP-2021 05:17, Nonspecific T wave abnormality now evident in Lateral leads QT has lengthened Confirmed by Jose Miguel Slaughter ([id number]) on 09/12/2021 6:19:56 PM Referred By: REFERRED SELF Confirmed By:Yousif Slaughter
--- NOTE | 2021-09-12 18:27 | Electrocardiogram Report ---
Test Reason : Blood Pressure : / mmHG Vent. Rate : 066 BPM Atrial Rate : 066 BPM P-R Int : 112 ms QRS Dur : 086 ms QT Int : 370 ms P-R-T Axes : 054 015 000 degrees QTc Int : 387 ms Normal sinus rhythm Nonspecific T wave abnormality Abnormal ECG When compared with ECG of 12-SEP-2021 05:45, (unconfirmed) Sinus rhythm has replaced Junctional rhythm QT has shortened Confirmed by Jose Miguel Slaughter ([id number]) on 09/12/2021 6:26:48 PM Referred By: REFERRED SELF Confirmed By:Yousif Slaughter
== END 2021-09-12 15:17 | disposition home or self-care (01) | DRG 638 ==
LOC: ED 13:47 → SUATTDRO 15:15 → 2S 15:15